=== PATIENT | male | born 1945 | race Caucasian/White ===

== ENCOUNTER → 2017-07-24 09:09 | Outpatient (CLI) | payer MEDICARE, OTHER, SELFPAY ==
--- NOTE | 2017-07-24 | XR_ITS ---
XR chest 2V HISTORY: Cough and congestion ITS.REASON: INFLUENZA A, UNSPECIFIED COPD TYPE ORDERING PHYSICIAN: Omar Guzman MD PATIENT AGE: 72 years COMPARISON: 06/11/2014 FINDINGS: The cardiomediastinal silhouette and pulmonary vascularity are within normal limits. Calcified granuloma is present in the lingula. There is mild coarsening of the bronchovascular markings which may be seen with chronic bronchitis. There are mild atelectatic changes in right lung base with mild eventration of the right hemidiaphragm. Lower thoracic aorta is tortuous. No lobar consolidation or collapse. No acute bony abnormalities. IMPRESSION: Chronic changes with mild right basilar atelectasis
[2017-07-24 09:23] LABS: Basophils # 0.1 K/mm3 (0-0.2); Basophils % 0.7 % (0.1-2.0); Eosinophils # 0.6 K/mm3 (0.0-0.4); Eosinophils % 6.6 % (0.1-12.0); Hemoglobin 15.6 g/dL (14.1-18.0); Lymphocytes % 22.9 K/mm3 (10-50); Mean Corpuscular HGB Conc 33.3 g/dL (31.8-35.4); Mean Corpuscular Hemoglobin 29.6 pg (27.0-31.2); Mean Corpuscular Volume 88.8 fl (80-94); Mean Platelet Volume 8.3 fl (7.4-10.4); Monocytes # 0.6 K/mm3 (0.1-1.0); Neutrophils # 5.5 K/mm3 (1.8-7.8); Neutrophils % 62.7 % (37.0-80.0); Platelet Count 163 K/mm3 (142-424); Red Blood Count 5.29 M/mm3 (4.60-6.20); Red Cell Distribution Width 13.4 % (11.5-17.5); White Blood Count 8.8 K/mm3 (4.8-10.8)
[2017-07-24 09:42] LABS: Hemoglobin A1C 6.6 % (0.0-7.0)
[2017-07-24 10:08] LABS: Alanine Aminotransferase 27 U/L (12-78); Albumin Level 3.6 gm/dL (3.4-5.0); Albumin/Globulin Ratio 1.2 (1.1-1.8); Alkaline Phosphatase 59 U/L (46-116); Anion Gap 13.7 mEq/L (5-15); Aspartate Amino Transferase 21 U/L (15-37); Bilirubin,Total 0.7 mg/dL (0.2-1.0); Blood Urea Nitrogen 15 mg/dL (7-18); Calcium 8.7 mg/dL (8.5-10.1); Carbon Dioxide 27 mmol/L (21.0-32.0); Chloride 105 mmol/L (98-107); Chol/HDL Ratio 2.5 (1-3.5); Cholesterol 126 mg/dL (140-200); Creatinine,Serum 0.78 mg/dL (0.70-1.30); Estimated Glomerular Filt Rate 98 ml/min (>60); GFR (African American) 119 ML/MIN (>60); Globulin 2.9 gm/dl (1.3-3.2); Glucose 139 mg/dL (74-106); HDL Cholesterol 50 mg/dL (27-67); LDL Cholesterol 38 mg/dL (0-130); Potassium 3.7 mmoL/L (3.5-5.1); Sodium 142 mmol/L (136-145); Total Protein,Serum 6.5 gm/dL (6.4-8.2); Triglycerides 190 mg/dL (30-200); VLDL Cholesterol 38 mg/dL (0-40)
== END ==
PROVIDERS: PCP Internal Medicine Adolescent Medicine; Visit Provider Internal Medicine Adolescent Medicine
DX: E11.9 Type 2 diabetes mellitus without complications (principal); I25.10 Atherosclerotic heart disease of native coronary artery without angina pectoris; J10.1 Influenza due to other identified influenza virus with other respiratory manifestations; J44.9 Chronic obstructive pulmonary disease, unspecified
CPT/HCPCS: 36415; 71046; 80053; 80061; 83036; 85025

== ENCOUNTER → 2017-10-19 13:33 | Outpatient (CLI) | payer MEDICARE, OTHER, SELFPAY | PROVIDERS: Visit Provider Urology | DX: R39.89 Other symptoms and signs involving the genitourinary system (principal); N40.0 Benign prostatic hyperplasia without lower urinary tract symptoms; Z12.5 Encounter for screening for malignant neoplasm of prostate | CPT/HCPCS: 36415; G0103 ==

== ENCOUNTER → 2018-01-17 11:09 | Outpatient (CLI) | payer MEDICARE, OTHER, SELFPAY ==
[2018-01-17 11:53] LABS: Alanine Aminotransferase 42 U/L (12-78); Albumin Level 3.7 gm/dL (3.4-5.0); Albumin/Globulin Ratio 1.2 (1.1-1.8); Alkaline Phosphatase 64 U/L (46-116); Anion Gap 14.1 mEq/L (5-15); Aspartate Amino Transferase 37 U/L (15-37); Bilirubin,Total 0.8 mg/dL (0.2-1.0); Blood Urea Nitrogen 15 mg/dL (7-18); Calcium 9.1 mg/dL (8.5-10.1); Carbon Dioxide 27 mmol/L (21.0-32.0); Chloride 107 mmol/L (98-107); Chol/HDL Ratio 2.4 (1-3.5); Cholesterol 119 mg/dL (140-200); Creatinine,Serum 0.89 mg/dL (0.70-1.30); Estimated Glomerular Filt Rate 84 ml/min (>60); GFR (African American) 102 ML/MIN (>60); Globulin 3.1 gm/dl (1.3-3.2); Glucose 151 mg/dL (74-106); HDL Cholesterol 50 mg/dL (27-67); LDL Cholesterol 41 mg/dL (0-130); Potassium 4.1 mmoL/L (3.5-5.1); Sodium 144 mmol/L (136-145); Total Protein,Serum 6.8 gm/dL (6.4-8.2); Triglycerides 139 mg/dL (30-200); VLDL Cholesterol 28 mg/dL (0-40)
[2018-01-17 14:36] LABS: Hemoglobin A1C 6.7 % (0.0-7.0)
== END ==
PROVIDERS: Visit Provider Internal Medicine Adolescent Medicine
DX: E11.9 Type 2 diabetes mellitus without complications (principal)
CPT/HCPCS: 36415; 80053; 80061; 83036

== ENCOUNTER → 2018-04-21 08:21 | Outpatient (CLI) | payer MEDICARE, OTHER, SELFPAY ==
[2018-04-21 09:08] LABS: Basophils # 0.1 K/mm3 (0-0.2); Basophils % 0.7 % (0.1-2.0); Eosinophils # 0.4 K/mm3 (0.0-0.4); Eosinophils % 5.4 % (0.1-12.0); Hematocrit 43.7 % (42.0-52.0); Hemoglobin 14.2 g/dL (14.1-18.0); Lymphocytes # 1.9 K/mm3 (0.7-4.5); Lymphocytes % 25.6 K/mm3 (10-50); Mean Corpuscular HGB Conc 32.4 g/dL (31.8-35.4); Mean Corpuscular Hemoglobin 29.7 pg (27.0-31.2); Mean Corpuscular Volume 91.7 fl (80-94); Mean Platelet Volume 7.6 fl (7.4-10.4); Monocytes # 0.5 K/mm3 (0.1-1.0); Monocytes % 7.3 % (1.7-9.3); Neutrophils # 4.5 K/mm3 (1.8-7.8); Platelet Count 214 K/mm3 (142-424); Red Blood Count 4.77 M/mm3 (4.60-6.20); Red Cell Distribution Width 13.3 % (11.5-17.5); White Blood Count 7.4 K/mm3 (4.8-10.8)
[2018-04-21 09:47] LABS: Hemoglobin A1C 6.5 % (0.0-7.0)
[2018-04-21 09:58] LABS: Alanine Aminotransferase 32 U/L (12-78); Albumin Level 3.3 gm/dL (3.4-5.0); Alkaline Phosphatase 92 U/L (46-116); Anion Gap 13.7 mEq/L (5-15); Aspartate Amino Transferase 25 U/L (15-37); Bilirubin,Total 0.5 mg/dL (0.2-1.0); Blood Urea Nitrogen 21 mg/dL (7-18); Calcium 9.2 mg/dL (8.5-10.1); Carbon Dioxide 28 mmol/L (21.0-32.0); Chloride 106 mmol/L (98-107); Chol/HDL Ratio 2.2 (1-3.5); Cholesterol 100 mg/dL (140-200); Creatinine,Serum 0.88 mg/dL (0.70-1.30); Estimated Glomerular Filt Rate 85 ml/min (>60); GFR (African American) 103 ML/MIN (>60); Globulin 3.2 gm/dl (1.3-3.2); Glucose 122 mg/dL (74-106); HDL Cholesterol 46 mg/dL (27-67); LDL Cholesterol 25 mg/dL (0-130); Potassium 4.7 mmoL/L (3.5-5.1); Sodium 143 mmol/L (136-145); Total Protein,Serum 6.5 gm/dL (6.4-8.2); Triglycerides 145 mg/dL (30-200); VLDL Cholesterol 29 mg/dL (0-40)
== END ==
PROVIDERS: PCP Internal Medicine Adolescent Medicine; Visit Provider Internal Medicine Adolescent Medicine
DX: E78.5 Hyperlipidemia, unspecified (principal); E11.9 Type 2 diabetes mellitus without complications; I25.10 Atherosclerotic heart disease of native coronary artery without angina pectoris
CPT/HCPCS: 36415; 80053; 80061; 83036; 85025

== ENCOUNTER → 2018-06-07 15:58 | Outpatient (CLI) | payer MEDICARE, OTHER, SELFPAY | PROVIDERS: Visit Provider Urology | DX: N13.8 Other obstructive and reflux uropathy (principal); N40.1 Benign prostatic hyperplasia with lower urinary tract symptoms | CPT/HCPCS: 87086; 87088; 87186 ==

== ENCOUNTER → 2018-10-24 10:01 | Outpatient (CLI) | payer MEDICARE, OTHER, SELFPAY ==
[2018-10-24 10:24] LABS: Basophils % 0.4 % (0.1-2.0); Eosinophils # 0.3 K/mm3 (0.0-0.4); Eosinophils % 3.5 % (0.1-12.0); Hematocrit 46.7 % (42.0-52.0); Hemoglobin 16.2 g/dL (14.1-18.0); Lymphocytes # 1.8 K/mm3 (0.7-4.5); Lymphocytes % 24.8 % (10-50); Mean Corpuscular HGB Conc 34.7 g/dL (31.8-35.4); Mean Corpuscular Hemoglobin 31.3 pg (27.0-31.2); Mean Corpuscular Volume 90.3 fl (80-94); Mean Platelet Volume 8.3 fl (7.4-10.4); Monocytes # 0.5 K/mm3 (0.1-1.0); Monocytes % 6.9 % (1.7-9.3); Neutrophils # 4.7 K/mm3 (1.8-7.8); Neutrophils % 64.3 % (37.0-80.0); Platelet Count 167 K/mm3 (142-424); Red Blood Count 5.17 M/mm3 (4.60-6.20); Red Cell Distribution Width 14.1 % (11.5-17.5); White Blood Count 7.4 K/mm3 (4.8-10.8)
[2018-10-24 11:34] LABS: Alanine Aminotransferase 23 U/L (12-78); Albumin Level 3.6 gm/dL (3.4-5.0); Albumin/Globulin Ratio 1.1 (1.1-1.8); Alkaline Phosphatase 72 U/L (46-116); Anion Gap 12.9 mEq/L (5-15); Aspartate Amino Transferase 19 U/L (15-37); Bilirubin,Total 0.7 mg/dL (0.2-1.0); Blood Urea Nitrogen 14 mg/dL (7-18); Calcium 8.9 mg/dL (8.5-10.1); Carbon Dioxide 29 mmol/L (21.0-32.0); Chloride 104 mmol/L (98-107); Chol/HDL Ratio 2.4 (1-3.5); Cholesterol 115 mg/dL (140-200); Estimated Glomerular Filt Rate 95 ml/min (>60); GFR (African American) 115 ML/MIN (>60); Globulin 3.3 gm/dl (1.3-3.2); Glucose 121 mg/dL (74-106); HDL Cholesterol 47 mg/dL (27-67); LDL Cholesterol 49 mg/dL (0-130); Potassium 3.9 mmoL/L (3.5-5.1); Sodium 142 mmol/L (136-145); Total Protein,Serum 6.9 gm/dL (6.4-8.2); Triglycerides 95 mg/dL (30-200); VLDL Cholesterol 19 mg/dL (0-40)
== END ==
PROVIDERS: Visit Provider Internal Medicine Adolescent Medicine
DX: E78.5 Hyperlipidemia, unspecified (principal); E11.9 Type 2 diabetes mellitus without complications; Z79.84 Long term (current) use of oral hypoglycemic drugs; I10 Essential (primary) hypertension
CPT/HCPCS: 36415; 80053; 80061; 83036; 85025

== ENCOUNTER → 2019-03-28 09:17 | Outpatient (CLI) | payer MEDICARE, OTHER, SELFPAY ==
[2019-03-28 09:49] LABS: Basophils % 0.4 % (0.1-2.0); Eosinophils # 0.3 K/mm3 (0.0-0.4); Eosinophils % 3.2 % (0.1-12.0); Hematocrit 49.2 % (42.0-52.0); Hemoglobin 15.9 g/dL (14.1-18.0); Lymphocytes # 2.1 K/mm3 (0.7-4.5); Mean Corpuscular HGB Conc 32.3 g/dL (31.8-35.4); Mean Corpuscular Hemoglobin 30.3 pg (27.0-31.2); Mean Corpuscular Volume 93.8 fl (80-94); Mean Platelet Volume 8.6 fl (7.4-10.4); Monocytes # 0.6 K/mm3 (0.1-1.0); Monocytes % 7.4 % (1.7-9.3); Neutrophils # 5.2 K/mm3 (1.8-7.8); Neutrophils % 62.9 % (37.0-80.0); Platelet Count 185 K/mm3 (142-424); Red Blood Count 5.24 M/mm3 (4.60-6.20); Red Cell Distribution Width 14.5 % (11.5-17.5); White Blood Count 8.2 K/mm3 (4.8-10.8)
[2019-03-28 10:50] LABS: Alanine Aminotransferase 18 U/L (12-78); Albumin Level 3.5 gm/dL (3.4-5.0); Albumin/Globulin Ratio 1.1 (1.1-1.8); Alkaline Phosphatase 62 U/L (46-116); Anion Gap 13.1 mEq/L (5-15); Aspartate Amino Transferase 15 U/L (15-37); Bilirubin,Total 0.8 mg/dL (0.2-1.0); Blood Urea Nitrogen 23 mg/dL (7-18); Calcium 9.2 mg/dL (8.5-10.1); Carbon Dioxide 29 mmol/L (21.0-32.0); Chloride 104 mmol/L (98-107); Chol/HDL Ratio 2.7 (1-3.5); Cholesterol 119 mg/dL (140-200); Creatinine,Serum 0.72 mg/dL (0.70-1.30); Estimated Glomerular Filt Rate 107 ml/min (>60); GFR (African American) 129 ML/MIN (>60); Globulin 3.1 gm/dl (1.3-3.2); Glucose 111 mg/dL (74-106); HDL Cholesterol 44 mg/dL (27-67); LDL Cholesterol 40 mg/dL (0-130); Potassium 4.1 mmoL/L (3.5-5.1); Sodium 142 mmol/L (136-145); Total Protein,Serum 6.6 gm/dL (6.4-8.2); Triglycerides 174 mg/dL (30-200); VLDL Cholesterol 35 mg/dL (0-40)
[2019-03-28 11:29] LABS: Hemoglobin A1C 6.2 % (0.0-7.0)
== END ==
PROVIDERS: Visit Provider Internal Medicine Adolescent Medicine
DX: I25.10 Atherosclerotic heart disease of native coronary artery without angina pectoris (principal); E11.9 Type 2 diabetes mellitus without complications; E78.5 Hyperlipidemia, unspecified; Z79.84 Long term (current) use of oral hypoglycemic drugs
CPT/HCPCS: 36415; 80053; 80061; 83036; 85025

== ENCOUNTER → 2019-04-07 10:49 | Outpatient (CLI) | payer MEDICARE, OTHER, SELFPAY ==
--- NOTE | 2019-04-07 10:53 | CT_ITS ---
PROCEDURE: CT LUNG SCREENING CLINICAL INDICATION: CURRENT TOBACCO USE Thirty pack-year smoking history, asymptomatic for lung cancer COMPARISON: LDCTLCAS LDCT FOR LUNG CA SCREEN from 10/12/2016 TECHNIQUE: The exam was performed on a GE Light Speed [address] scanner using 2.90 mGy CTDI. A low dose helical CT CHEST was performed on a multi-detector scanner. All CT scans at the facility use one or more dose reduction, viz: automated exposure control, ma/kV adjustment per patient size (including targeted exams where dose is matched to indication, i.e. head), or iterative reconstruction technique. The LDCT was performed in a facility that meets the criteria for the screening program. Data regarding this exam was submitted to ACR which is an approved registry. The order for this exam indicates that it came as a result of a lung cancer screening counseling shard decision-making visit that included all the elements required of such a visit including smoking cessation. The radiologist interpreting this exam meets the CMS criteria for the LDCT lung cancer screening program. The exam is reported using the Lung-RADS classification scale and reported to the ACR registry. NOTE: This study was performed for the specific purposes of lung cancer screening and is not an alternative to diagnostic chest CT. RADIATION DOSE: CTDI vol(CT dose Index-volume) = 2.90mG DLP (Dose Length Product) = 110.98 mGcm FINDINGS: COPD with centrilobular and paraseptal emphysema a 4 mm noncalcified nodule is present in the right middle lobe unchanged. There are scattered fibrotic changes. There is a 3 mm noncalcified nodule in the left apex. Calcified granuloma is present in the lingula. There is a new oval parenchymal opacity in the right lower lobe at 7 x 4 mm possibly due to an area of parenchymal fibrosis. Suggest 6 month follow-up to confirm stability. Cannot exclude a developing pulmonary nodule OTHER FINDINGS: Coronary artery calcification. Scattered small mediastinal lymph nodes. IMPRESSION: Lung rads category 3 probably findings. New nodule in the right lower lobe Suggest [address] chest Dictated by: Darwin Briones MD 04/09/2019 11:11 Electronically signed by Darwin Briones MD in [place] 04/09/2019 11:11
== END ==
PROVIDERS: PCP Internal Medicine Adolescent Medicine; Visit Provider Internal Medicine Adolescent Medicine
DX: Z87.891 Personal history of nicotine dependence (principal); Z12.2 Encounter for screening for malignant neoplasm of respiratory organs

== ENCOUNTER → 2019-05-23 14:23 | Outpatient (CLI) | payer MEDICARE, OTHER, SELFPAY ==
[2019-05-23 15:42] LABS: Prostate Specific Ag Screen 1.7 ng/mL (0.0-4.0)
== END ==
PROVIDERS: Visit Provider Urology
DX: Z12.5 Encounter for screening for malignant neoplasm of prostate (principal); N40.0 Benign prostatic hyperplasia without lower urinary tract symptoms
CPT/HCPCS: 36415; G0103

== ENCOUNTER → 2019-08-09 11:32 | Outpatient (CLI) | payer MEDICARE, OTHER, SELFPAY ==
[2019-08-09 12:25] LABS: Basophils # 0.1 K/mm3 (0-0.2); Basophils % 0.7 % (0.1-2.0); Eosinophils # 0.3 K/mm3 (0.0-0.4); Eosinophils % 3.7 % (0.1-12.0); Hematocrit 47.6 % (42.0-52.0); Hemoglobin 15.9 g/dL (14.1-18.0); Lymphocytes # 1.9 K/mm3 (0.7-4.5); Lymphocytes % 21.3 % (10-50); Mean Corpuscular HGB Conc 33.4 g/dL (31.8-35.4); Mean Corpuscular Hemoglobin 30.9 pg (27.0-31.2); Mean Corpuscular Volume 92.5 fl (80-94); Mean Platelet Volume 8.9 fl (7.4-10.4); Monocytes # 0.6 K/mm3 (0.1-1.0); Neutrophils % 67.2 % (37.0-80.0); Platelet Count 229 K/mm3 (142-424); Red Blood Count 5.15 M/mm3 (4.60-6.20); Red Cell Distribution Width 13.1 % (11.5-17.5); White Blood Count 8.9 K/mm3 (4.8-10.8)
[2019-08-09 13:37] LABS: Alanine Aminotransferase 18 U/L (21-72); Albumin Level 3.7 g/dL (3.4-5.0); Albumin/Globulin Ratio 1.1 (1.1-1.8); Alkaline Phosphatase 56 U/L (46-116); Anion Gap 12.2 mEq/L (5-15); Aspartate Amino Transferase 18 U/L (15-37); Bilirubin,Total 0.7 mg/dL (0.2-1.0); Blood Urea Nitrogen 19 mg/dL (7-18); Calcium 9.5 mg/dL (8.5-10.1); Carbon Dioxide 32 mmol/L (21.0-32.0); Chloride 104 mmol/L (98-107); Chol/HDL Ratio 2.5 (1-3.5); Cholesterol 120 mg/dL (140-200); Creatinine,Serum 0.86 mg/dL (0.70-1.30); Estimated Glomerular Filt Rate 87 ml/min (>60); GFR (African American) 105 ML/MIN (>60); Globulin 3.3 gm/dl (1.3-3.2); Glucose 120 mg/dL (74-106); HDL Cholesterol 48 mg/dL (27-67); LDL Cholesterol 34 mg/dL (0-130); Potassium 4.2 mmoL/L (3.5-5.1); Sodium 144 mmol/L (137-145); Triglycerides 188 mg/dL (30-200); VLDL Cholesterol 38 mg/dL (0-40)
[2019-08-09 14:21] LABS: Hemoglobin A1C 6.1 % (0.0-7.0)
== END ==
PROVIDERS: Visit Provider Internal Medicine Adolescent Medicine
DX: I25.10 Atherosclerotic heart disease of native coronary artery without angina pectoris (principal); E78.5 Hyperlipidemia, unspecified; Z79.899 Other long term (current) drug therapy
CPT/HCPCS: 36415; 80053; 80061; 83036; 85025

== ENCOUNTER → 2019-08-24 13:47 | Outpatient (CLI) | payer MEDICARE, OTHER, SELFPAY ==
[2019-08-24 16:06] LABS: Blood Urea Nitrogen 18 mg/dl (9-20); Estimated Glomerular Filt Rate 111 ml/min (>60); GFR (African American) 134 ML/MIN (>60)
== END ==
PROVIDERS: Visit Provider Internal Medicine Adolescent Medicine
DX: R93.89 Abnormal findings on diagnostic imaging of other specified body structures (principal)
CPT/HCPCS: 36415; 82565; 84520

== ENCOUNTER → 2019-08-25 13:37 | Outpatient (CLI) | payer MEDICARE, OTHER, SELFPAY ==
--- NOTE | 2019-08-25 13:39 | CT_ITS ---
PROCEDURE: CT CHEST W CON CLINCAL INDICATION: ABORMAL CHEST IMAGING COMPARISON: CT LUNG SCREENING from 04/07/2019 TECHNIQUE: IV Contrast: 75ml Optiray 350 Axial images obtained with sagittal and coronal reformats. All CT scans at the facility use one or more dose reduction, viz: automated exposure control, ma/kV adjustment per patient size (including targeted exams where dose is matched to indication, i.e. head), or iterative reconstruction technique. FINDINGS: HEART AND MEDIASTINAL STRUCTURES: Scattered small nodes are present in the mediastinum. This appears slightly more prominent compared to the previous study with the largest node in the precarinal region at approximately 12 mm previously measuring 9 mm. There are coronary artery calcifications. LUNGS AND PLEURAL SPACES: COPD with centrilobular emphysema. There is some apical pleural thickening on the right. Paraseptal emphysematous changes also noted. There is diffuse bronchial thickening. There are a few new small nodular opacities including a 5 mm nodule in the right upper lobe anteriorly, several small nodules at 3-4 mm in the right middle lobe, 3 mm nodule in the lingula which is stable, calcified granuloma in the lingula. Bronchial thickening appears somewhat worse in there is some patchy peribronchial infiltrate noted in the right middle lobe and right lower lobe medially. There is some ground-glass density in the left perihilar region. No effusions. There is mild prominence of the interstitium. The previously noted 6 mm nodule in the right lower lobe posteriorly is not readily apparent could been due to an area of atelectasis. BONY STRUCTURES: No acute bony abnormalities apparent. UPPER ABDOMEN: There is a cluster of coarse calcifications in the posterior aspect of the right hepatic lobe near the gallbladder fossa not significantly changed. There is mild diffuse thickening of the stomach. A small cystic areas present in the hepatic dome not significantly changed. ADDITIONAL FINDINGS: No other significant abnormalities. IMPRESSION: 1. There is COPD with centrilobular emphysema. There is diffuse bronchial thickening which appears somewhat worse and is greater on the right compared to the left with some patchy peribronchial infiltrates consistent with bronchitis/bronchopneumonia. 2. There are a few new small nodular opacities noted in the right upper lobe and right middle lobe. These could be inflammatory or infectious in nature. Cannot exclude neoplastic process. Suggest 3 month follow-up to confirm stability or resolution. 3. Previously noted 6 mm nodule in the right lower lobe is no longer apparent Dictated by: Darwin Briones MD 08/26/2019 10:03 Electronically signed by Darwin Briones MD in [place] 08/26/2019 10:03
== END ==
PROVIDERS: PCP Internal Medicine Adolescent Medicine; Visit Provider Internal Medicine Adolescent Medicine
DX: R93.89 Abnormal findings on diagnostic imaging of other specified body structures (principal)
CPT/HCPCS: 71260; Q9967

== ENCOUNTER → 2019-11-24 13:06 | Outpatient (CLI) | payer MEDICARE, OTHER, SELFPAY ==
[2019-11-24 13:36] LABS: Hemoglobin A1C 5.9 % (4.0-6.0)
[2019-11-24 13:47] LABS: Basophils # 0.1 K/mm3 (0-0.2); Basophils % 0.9 % (0.1-2.0); Eosinophils # 0.2 K/mm3 (0.0-0.4); Eosinophils % 2.3 % (0.1-12.0); Hemoglobin 15.4 g/dL (14.1-18.0); Lymphocytes # 1.6 K/mm3 (0.7-4.5); Lymphocytes % 19.7 % (10-50); Mean Corpuscular HGB Conc 33.6 g/dL (31.8-35.4); Mean Corpuscular Hemoglobin 31.1 pg (27.0-31.2); Mean Corpuscular Volume 92.5 fl (80-94); Monocytes # 0.5 K/mm3 (0.1-1.0); Monocytes % 5.8 % (1.7-9.3); Neutrophils # 5.8 K/mm3 (1.8-7.8); Neutrophils % 71.2 % (37.0-80.0); Platelet Count 186 K/mm3 (142-424); Red Blood Count 4.97 M/mm3 (4.60-6.20); Red Cell Distribution Width 13.6 % (11.5-17.5); White Blood Count 8.2 K/mm3 (4.8-10.8)
[2019-11-24 14:14] LABS: Chloride 103 mmol/L (98-107)
[2019-11-24 14:15] LABS: Sodium 142 mmol/L (136-145)
[2019-11-24 14:17] LABS: Alanine Aminotransferase 13 U/L (12-78); Alkaline Phosphatase 59 U/L (38-126); Aspartate Amino Transferase 24 U/L (17-59); Bilirubin,Total 1.1 mg/dl (0.2-1.3); Blood Urea Nitrogen 12 mg/dl (9-20); Estimated Glomerular Filt Rate 111 ml/min (>60); GFR (African American) 134 ML/MIN (>60)
[2019-11-24 14:18] LABS: Albumin Level 4.1 g/dl (3.5-5.0); Albumin/Globulin Ratio 1.6 (1.1-1.8); Calcium 9.5 mg/dl (8.4-10.2); Carbon Dioxide 34 mmol/L (22.0-30.0); Chol/HDL Ratio 2.2 (1-3.5); Cholesterol 107 mg/dl (140-200); Globulin 2.6 g/dL (1.3-3.2); Glucose 109 mg/dl (74-100); HDL Cholesterol 49 mg/dl (40-60); Total Protein,Serum 6.7 g/dl (6.3-8.2); Triglycerides 162 mg/dl (30-150); VLDL Cholesterol 32 mg/dL (0-40)
[2019-11-24 14:29] LABS: Direct LDL Cholesterol 48.78 mg/dL (100-129)
== END ==
PROVIDERS: Visit Provider Internal Medicine Adolescent Medicine
DX: I25.10 Atherosclerotic heart disease of native coronary artery without angina pectoris (principal); E78.5 Hyperlipidemia, unspecified; E11.9 Type 2 diabetes mellitus without complications; Z79.84 Long term (current) use of oral hypoglycemic drugs
CPT/HCPCS: 36415; 80053; 80061; 83036; 85025

== ENCOUNTER → 2019-12-11 08:11 | Outpatient (CLI) | payer MEDICARE, OTHER, SELFPAY ==
[2019-12-11 08:36] LABS: Blood Urea Nitrogen 27 mg/dl (9-20); Estimated Glomerular Filt Rate 95 ml/min (>60); GFR (African American) 115 ML/MIN (>60)
--- NOTE | 2019-12-11 09:11 | CT_ITS ---
PROCEDURE: CT CHEST WO/W CON CLINCAL INDICATION: MULTIPLE PULMONARY NODULES Follow-up pulmonary nodules COMPARISON: CT CHEST W CON from 08/25/2019 TECHNIQUE: IV Contrast: 75ml Optiray 350 Axial images obtained with sagittal and coronal reformats. All CT scans at the facility use one or more dose reduction, viz: automated exposure control, ma/kV adjustment per patient size (including targeted exams where dose is matched to indication, i.e. head), or iterative reconstruction technique. FINDINGS: HEART AND MEDIASTINAL STRUCTURES: Small mediastinal nodes are unchanged. No mediastinal or hilar mass or adenopathy. Coronary artery calcifications are present. LUNGS AND PLEURAL SPACES: COPD with centrilobular and paraseptal emphysema. Right apical nodule anteriorly no longer apparent. There is a 2 mm nodule right upper lobe laterally unchanged. 3 mm nodule right middle lobe laterally unchanged. There are some mild atelectatic changes in the right middle lobe. Atelectatic or fibrotic changes are present in the right lower lobe. There is mild bronchial thickening. There is a 3 mm nodule in the lingula unchanged. Calcified granuloma in the lingula unchanged small area of cavitation/pneumatocele noted in the left lower lobe unchanged. No suspicious new nodules evident. BONY STRUCTURES: No acute bony abnormalities apparent. UPPER ABDOMEN: Coarse calcification noted in the right hepatic lobe unchanged. There is continued mild diffuse thickening of the stomach ADDITIONAL FINDINGS: No other significant abnormalities. IMPRESSION: Overall stable CT appearance of the chest. COPD with centrilobular and paraseptal emphysema with scattered small nodular opacities which are stable. Mild diffuse thickening of the stomach which could be due to nondistention or gastritis. Other nonacute findings as described above Dictated by: Darwin Briones MD 12/12/2019 12:12 Electronically signed by Darwin Briones MD in [place] 12/12/2019 12:12
== END ==
PROVIDERS: PCP Internal Medicine Adolescent Medicine; Visit Provider Internal Medicine Adolescent Medicine
DX: R91.8 Other nonspecific abnormal finding of lung field (principal)
CPT/HCPCS: 36415; 71270; 82565; 84520; Q9967

== ENCOUNTER → 2020-02-29 11:56 | Outpatient (CLI) | payer MEDICARE, OTHER, SELFPAY ==
[2020-02-29 12:27] LABS: Basophils # 0.1 K/mm3 (0-0.2); Basophils % 0.7 % (0.1-2.0); Eosinophils # 0.3 K/mm3 (0.0-0.4); Eosinophils % 3.8 % (0.1-12.0); Hematocrit 49.9 % (42.0-52.0); Hemoglobin 16.8 g/dL (14.1-18.0); Lymphocytes # 1.7 K/mm3 (0.7-4.5); Mean Corpuscular HGB Conc 33.6 g/dL (31.8-35.4); Mean Corpuscular Hemoglobin 31.4 pg (27.0-31.2); Mean Corpuscular Volume 93.5 fl (80-94); Mean Platelet Volume 8.7 fl (7.4-10.4); Monocytes # 0.6 K/mm3 (0.1-1.0); Neutrophils # 5.3 K/mm3 (1.8-7.8); Neutrophils % 67.6 % (37.0-80.0); Platelet Count 172 K/mm3 (142-424); Red Blood Count 5.34 M/mm3 (4.60-6.20); Red Cell Distribution Width 13.4 % (11.5-17.5); White Blood Count 7.9 K/mm3 (4.8-10.8)
[2020-02-29 12:49] LABS: Chloride 100 mmol/L (98-107); Potassium 3.7 mmoL/L (3.5-5.1); Sodium 141 mmol/L (136-145)
[2020-02-29 12:52] LABS: Alanine Aminotransferase 14 U/L (12-78); Albumin/Globulin Ratio 1.4 (1.1-1.8); Alkaline Phosphatase 53 U/L (38-126); Anion Gap 12.7 mEq/L (5-15); Aspartate Amino Transferase 25 U/L (17-59); Blood Urea Nitrogen 18 mg/dl (9-20); Carbon Dioxide 32 mmol/L (22.0-30.0); Chol/HDL Ratio 2.2 (1-3.5); Cholesterol 112 mg/dl (140-200); Estimated Glomerular Filt Rate 94 ml/min (>60); GFR (African American) 114 ML/MIN (>60); Globulin 2.9 g/dL (1.3-3.2); Glucose 115 mg/dl (74-100); HDL Cholesterol 50 mg/dl (40-60); Total Protein,Serum 6.9 g/dl (6.3-8.2); Triglycerides 141 mg/dl (30-150); VLDL Cholesterol 28 mg/dL (0-40)
[2020-02-29 13:03] LABS: Direct LDL Cholesterol 41.71 mg/dL (100-129)
[2020-02-29 16:41] LABS: Hemoglobin A1C 6.6 % (4.0-6.0)
== END ==
PROVIDERS: Visit Provider Internal Medicine Adolescent Medicine
DX: E78.5 Hyperlipidemia, unspecified (principal); E11.9 Type 2 diabetes mellitus without complications; I25.10 Atherosclerotic heart disease of native coronary artery without angina pectoris
CPT/HCPCS: 36415; 80053; 80061; 83036; 85025

== ENCOUNTER 2020-06-08 10:38 | Emergency (ER) | payer MEDICARE, OTHER, SELFPAY ==
[2020-06-08 10:52] VITALS: BP 128/79; PULSE 89; RESP 20; TEMP 36.8; O2SAT 98; BMI 25.9
--- NOTE | 2020-06-08 11:12 | HMH.EDUTC ---
[facility] [place] Disposition Clinical Impression: Viral syndrome, Encounter for screening laboratory testing for COVID-19 virus Disposition: Home, Self-Care Condition on Discharge: Good Instructions: Preventing the Spread of Coronavirus Discharge Instructions Additional Instructions: *Monitor Temp, Over the counter Motrin or Tylenol as directed/as needed Tylenol every 4 hours and Motrin every 6 hours (as long as your family doctor has told you that you can take it) for fever or pain. and straight to ER if unable to lower temp less than 101.0 after medication given *Warm salt water gargles may help to soothe the throat *Throat Lozenges *Warm fluids like tea with honey may help to soothe the throat *Sleep elevated *Humidifier/Vaporizer Follow up IMMEDIATELY for new or worsening symptoms or no Noticeable improvement over the next 48-72 hours. 911 for difficulty breathing or swallowing You were tested for today for COVID19 your test result should be back in the next 24-48 hours, you may call to the [facility] to see if your test results are back in the next 48 hours [phone] [facility] hours are 9am-9pm You was given a handout with instructions for Self Quarantine and Self isolation for while you wait on test results and what to do if they are positive If you are positive the Health Dept will be contacting you also Referrals: Omar Guzman MD [Primary Care Provider] - As needed Time of Disposition: 11:19 Medical Decision Making - Christiano Inquiry Pt receiving controlled substance: No Christiano was queried for this patient: No Vital Signs: 06/08/20 10:52 Temperature 98.3 F Temperature Source Oral Pulse Rate [Radial] 89 Respiratory Rate 20 Blood Pressure [Right Arm] 128/79 Blood Pressure Mean [Right Arm] 95 Blood Pressure Source [Right Arm] Automatic Cuff Blood Pressure Position [Right Arm] Sitting 02 Sat by Pulse Oximetry 98 Oxygen Delivery Method Room Air - Lab Data Lab results reviewed: Yes: I reviewed the patient's lab results. Orders (Tests/Meds): ORDERS Category Date Time Status Covid-19 Nasal PCR Sendout [facility] 06/08/20 10:43 Ordered [facility] [place] HPI - General Stated complaint: covid test Time Seen by Provider: 06/08/20 11:12 Mode of Arrival: Ambulatory Source of Information: Patient Limitations: No Limitations Description of Symptoms (Recalled from Triage Doc. by RN): covid test, body aches, cough x 2 days no exposure HEENT Symptoms (Recalled from RN notes): Yes Resp Symptoms (Recalled from RN notes): No Skin Symptoms (Recalled from RN notes): No MS Symptoms (Recalled from RN notes): No Functional Status (Recalled from RN notes): wnl - History of Present Illness Provider Complaint: Patient state that he wanted to get a COVID test States he has felt like he may have the flu State that he has been having body aches, chills, headache and over all not feeling well State that he has not been exposed that he is aware of but wanted to get checked for flu and COVID - Related Data Home Medications Medication Instructions Recorded Confirmed aspirin 81 mg tablet,delayed 81 mg PO ONCE 10/19/17 05/23/19 release atorvastatin 40 mg tablet 40 mg PO ONCE 10/19/17 05/23/19 diphenhydramine HCl 25 mg capsule 25 mg PO QHS PRN 10/19/17 05/23/19 losartan 50 mg tablet 50 mg PO ONCE 10/19/17 05/23/19 metformin 500 mg tablet 500 mg PO ONCE tab 10/19/17 05/23/19 metoprolol succinate 25 mg 25 mg PO ONCE 10/19/17 05/23/19 tablet,extended release 24 hr nicotine 1 patch TRANSDERMA ONCE 10/19/17 05/23/19 21mg/24hr-14mg/24hr-7mg/24hr daily transderm patches,sequentl omeprazole 20 mg tablet,delayed 20 mg PO ONCE tab 10/19/17 05/23/19 release umeclidinium 62.5 mcg-vilanterol 1 inh INHALATION Q24H 10/19/17 05/23/19 25 mcg/actuation powdr for inhalation Previous Rx's Medication Instructions Recorded azithromycin 250 mg tablet 250 mg PO QDAY 5 Days #6 tab 07/10/18 benzonatate 200 mg capsule 200 mg PO TID
[2020-06-08 11:31] VITALS: BP 128/79; PULSE 89; RESP 20; TEMP 36.8; O2SAT 98
[2020-06-08 19:09] LABS: UTC Influenza A Antigen Negative (Negative); UTC Influenza B Antigen Negative (Negative)
[2020-06-09 09:07] LABS: Covid-19 Nasal PCR Sendout UK Not Detected
== END 2020-06-08 11:32 | disposition home or self-care (01) ==
PROVIDERS: Emergency Provider Nurse Practitioner; PCP Internal Medicine Adolescent Medicine
DX: Z20.828 Contact with and (suspected) exposure to other viral communicable diseases (principal); B34.9 Viral infection, unspecified; I10 Essential (primary) hypertension; E11.9 Type 2 diabetes mellitus without complications; J44.9 Chronic obstructive pulmonary disease, unspecified; E78.5 Hyperlipidemia, unspecified; F17.210 Nicotine dependence, cigarettes, uncomplicated; Z79.899 Other long term (current) drug therapy
CPT/HCPCS: G0463; 87804; 99201; U0003

== ENCOUNTER → 2020-09-05 07:40 | Outpatient (CLI) | payer MEDICARE, OTHER, SELFPAY ==
[2020-09-05 08:37] LABS: Basophils # 0.1 K/mm3 (0-0.2); Basophils % 0.5 % (0.1-2.0); Eosinophils # 0.3 K/mm3 (0.0-0.4); Eosinophils % 3.6 % (0.1-12.0); Hematocrit 50.3 % (42.0-52.0); Hemoglobin 15.9 g/dL (14.1-18.0); Lymphocytes # 2.1 K/mm3 (0.7-4.5); Lymphocytes % 23.6 % (10-50); Mean Corpuscular HGB Conc 31.7 g/dL (31.8-35.4); Mean Corpuscular Hemoglobin 30.3 pg (27.0-31.2); Mean Corpuscular Volume 95.7 fl (80-94); Mean Platelet Volume 8.7 fl (7.4-10.4); Monocytes # 0.6 K/mm3 (0.1-1.0); Monocytes % 6.8 % (1.7-9.3); Neutrophils # 5.9 K/mm3 (1.8-7.8); Neutrophils % 65.4 % (37.0-80.0); Platelet Count 186 K/mm3 (142-424); Red Blood Count 5.26 M/mm3 (4.60-6.20); Red Cell Distribution Width 13.6 % (11.5-17.5)
[2020-09-05 09:05] LABS: Alanine Aminotransferase 15 U/L (12-78); Albumin Level 4.1 g/dl (3.5-5.0); Albumin/Globulin Ratio 1.4 (1.1-1.8); Alkaline Phosphatase 74 U/L (38-126); Anion Gap 11.5 mEq/L (5-15); Aspartate Amino Transferase 25 U/L (17-59); Bilirubin,Total 0.7 mg/dl (0.2-1.3); Blood Urea Nitrogen 15 mg/dl (9-20); Calcium 9.7 mg/dl (8.4-10.2); Carbon Dioxide 32 mmol/L (22.0-30.0); Chloride 100 mmol/L (98-107); Chol/HDL Ratio 2.7 (1-3.5); Cholesterol 122 mg/dl (140-200); Estimated Glomerular Filt Rate 94 ml/min (>60); GFR (African American) 114 ML/MIN (>60); Glucose 140 mg/dl (74-100); HDL Cholesterol 45 mg/dl (40-60); Potassium 4.5 mmoL/L (3.5-5.1); Sodium 139 mmol/L (136-145); Total Protein,Serum 7.1 g/dl (6.3-8.2); Triglycerides 163 mg/dl (30-150); VLDL Cholesterol 33 mg/dL (0-40)
[2020-09-05 09:16] LABS: Hemoglobin A1C 6.6 % (4.0-6.0)
== END ==
PROVIDERS: Visit Provider Internal Medicine Adolescent Medicine
DX: E78.5 Hyperlipidemia, unspecified (principal); E11.9 Type 2 diabetes mellitus without complications; Z79.84 Long term (current) use of oral hypoglycemic drugs
CPT/HCPCS: 36415; 80053; 80061; 83036; 85025

== ENCOUNTER → 2020-12-12 07:03 | Outpatient (CLI) | payer MEDICARE, OTHER, SELFPAY ==
--- NOTE | 2020-12-12 07:09 | CT_ITS ---
PROCEDURE: CT LUNG SCREENING CLINICAL INDICATION: H/O NICOTINE DEPENDENCE COMPARISON: CT CT CHEST WO/W CON from 12/11/2019 TECHNIQUE: The exam was performed on a GE Light Speed [address] scanner using 2.90 mGy CTDI. A low dose helical CT CHEST was performed on a multi-detector scanner. All CT scans at the facility use one or more dose reduction, viz: automated exposure control, ma/kV adjustment per patient size (including targeted exams where dose is matched to indication, i.e. head), or iterative reconstruction technique. The LDCT was performed in a facility that meets the criteria for the screening program. Data regarding this exam was submitted to ACR which is an approved registry. The order for this exam indicates that it came as a result of a lung cancer screening counseling shard decision-making visit that included all the elements required of such a visit including smoking cessation. The radiologist interpreting this exam meets the [facility] criteria for the LDCT lung cancer screening program. The exam is reported using the Lung-RADS classification scale and reported to the ACR registry. NOTE: This study was performed for the specific purposes of lung cancer screening and is not an alternative to diagnostic chest CT. RADIATION DOSE: CTDI vol(CT dose Index-volume) = 2.90mG DLP (Dose Length Product) = 111.25 mGcm FINDINGS: Scattered emphysematous changes with mild bullous emphysematous change at the lung apices is again noted. There is some scar versus atelectasis in the lung bases. No pulmonary consolidation or ground-glass opacities in the lungs. No pleural effusion or pneumothorax. A few small calcified granulomata noted in the left lung. No discrete pulmonary nodules. Heart is not enlarged. No pericardial effusion or thickening. There is some calcification of the thoracic aorta without aneurysm. A few small non-specific middle mediastinal lymph nodes are present with some calcified mediastinal and left hilar lymph nodes also noted. Images of the upper abdomen show small retrocardiac hiatal hernia. No adrenal mass. A few calcifications again noted in the right lobe of the liver. Airways are patent. OTHER FINDINGS: No other pertinent findings evident. IMPRESSION: Lung-RADS Category 2 Benign Appearance or Behavior Follow-up: Serial follow-up in 1 year. Scattered emphysematous changes with mild bullous emphysematous changes at the lung apices with some scar versus atelectasis in the lung bases. No definitive discrete pulmonary nodules. Dictated by: Keyshawn Simons MD 12/12/2020 08:40 Keyshawn Simons MD in [place] 12/12/2020 08:40
== END ==
PROVIDERS: PCP Internal Medicine Adolescent Medicine; Visit Provider Internal Medicine Adolescent Medicine
DX: Z87.891 Personal history of nicotine dependence (principal); Z12.2 Encounter for screening for malignant neoplasm of respiratory organs
CPT/HCPCS: 71271

== ENCOUNTER → 2021-03-12 09:53 | Outpatient (CLI) | payer MEDICARE, OTHER, SELFPAY ==
[2021-03-12 10:45] LABS: Hemoglobin A1C 6.4 % (4.0-6.0)
[2021-03-12 11:24] LABS: Chloride 102 mmol/L (98-107); Potassium 3.9 mmoL/L (3.5-5.1); Sodium 144 mmol/L (136-145)
[2021-03-12 11:25] LABS: Basophils # 0.1 K/mm3 (0-0.2); Basophils % 0.7 % (0.1-2.0); Eosinophils # 0.3 K/mm3 (0.0-0.4); Hematocrit 49.1 % (42.0-52.0); Hemoglobin 16.2 g/dL (14.1-18.0); Lymphocytes % 23.3 % (10-50); Mean Corpuscular HGB Conc 32.9 g/dL (31.8-35.4); Mean Corpuscular Volume 94.1 fl (80-94); Monocytes # 0.7 K/mm3 (0.1-1.0); Monocytes % 7.4 % (1.7-9.3); Neutrophils # 5.7 K/mm3 (1.8-7.8); Neutrophils % 65.6 % (37.0-80.0); Platelet Count 181 K/mm3 (142-424); Red Blood Count 5.22 M/mm3 (4.60-6.20); Red Cell Distribution Width 13.1 % (11.5-17.5); White Blood Count 8.8 K/mm3 (4.8-10.8)
[2021-03-12 11:26] LABS: Alanine Aminotransferase 15 U/L (12-78); Aspartate Amino Transferase 26 U/L (17-59); Blood Urea Nitrogen 18 mg/dl (9-20); Estimated Glomerular Filt Rate 82 ml/min (>60); GFR (African American) 100 ML/MIN (>60)
[2021-03-12 11:27] LABS: Albumin Level 3.9 g/dl (3.5-5.0); Albumin/Globulin Ratio 1.5 (1.1-1.8); Alkaline Phosphatase 73 U/L (38-126); Anion Gap 12.9 mEq/L (5-15); Bilirubin,Total 0.7 mg/dl (0.2-1.3); Calcium 9.2 mg/dl (8.4-10.2); Carbon Dioxide 33 mmol/L (22.0-30.0); Chol/HDL Ratio 2.5 (1-3.5); Cholesterol 115 mg/dl (140-200); Globulin 2.6 g/dL (1.3-3.2); Glucose 120 mg/dl (74-100); HDL Cholesterol 46 mg/dl (40-60); Total Protein,Serum 6.5 g/dl (6.3-8.2); Triglycerides 145 mg/dl (30-150); VLDL Cholesterol 29 mg/dL (0-40)
[2021-03-12 11:38] LABS: Direct LDL Cholesterol 47.59 mg/dL (100-129)
== END ==
PROVIDERS: Visit Provider Internal Medicine Adolescent Medicine
DX: I25.10 Atherosclerotic heart disease of native coronary artery without angina pectoris (principal); E78.5 Hyperlipidemia, unspecified; Z79.899 Other long term (current) drug therapy
CPT/HCPCS: 36415; 80053; 80061; 83036; 85025

== ENCOUNTER 2021-04-16 10:15 | Emergency (ER) | payer MEDICARE, OTHER, SELFPAY ==
[2021-04-16 10:17] VITALS: BP 140/86; PULSE 84; RESP 16; TEMP 36.6; O2SAT 97; BMI 27.6
--- NOTE | 2021-04-16 10:29 | HMH.EDUTC ---
[facility] [place] Disposition Clinical Impression: Cellulitis Qualifiers: Site of cellulitis: extremity Site of cellulitis of extremity: lower extremity Laterality: left Qualified Code(s): L03.116 - Cellulitis of left lower limb Disposition: Home, Self-Care Condition on Discharge: Good Instructions: Cellulitis, Clindamycin, Mupirocin Additional Instructions: *Start antibiotic(s) immediately and be sure to take as ordered for the FULL length of time although you may be feeling better or start to see improvement in the next 24-48 hours *Monitor closely. Outlined redness so that you can monitor easier. Follow up immediately for new or worsening symptoms including but not limited to redness, swelling, streaking from site fever or chills. *Never squeeze or pop these on your own. Seek immediate medical attention next time this occurs *Monitor Temp. Tylenol every 4 hours as needed and ibuprofen every 6 hours as needed (as long as your primary care doctor has told you that it is ok to take both. For fever, aches, pain. ER if no less that 101 despite Tylenol and ibuprofen Follow up with your family doctor/primary care physician in the next 48-72 hours if no improvement Return if needed Apply topical medication directly to the lesions as directed Straight to ER if any life threatening symptoms Prescriptions: clindamycin HCL [Clindamycin HCl] 300 mg PO Q8H 7 Days #21 cap Transmission Status: Received by [facility] Mupirocin Calcium [Mupirocin 2% Cream 15gm] 1 applicatio TP TID #15 gm Transmission Status: Received by [id number] Referrals: Omar Guzman MD [Primary Care Provider] - As needed Time of Disposition: 10:39 Medical Decision Making - Christiano Inquiry Pt receiving controlled substance: No Christiano was queried for this patient: No Vital Signs: 04/16/21 10:17 04/16/21 10:38 Temperature 97.8 F 97.8 F Temperature Source Oral Pulse Rate 84 Pulse Rate [Left] 84 Respiratory Rate 16 16 Blood Pressure 140/86 Blood Pressure [Right Arm] 140/86 Blood Pressure Mean [Right Arm] 104 02 Sat by Pulse Oximetry 97 Medical Decision Narrative: medication discussed with pharmacy [facility] [facility] HPI - General Stated complaint: left leg open wound, possibly affected Time Seen by Provider: 04/16/21 10:29 Mode of Arrival: Ambulatory Source of Information: Patient Limitations: No Limitations Description of Symptoms (Recalled from Triage Doc. by RN): pt scraped his lower L leg helping his daughter move. pt now thinks its infected HEENT Symptoms (Recalled from RN notes): No Resp Symptoms (Recalled from RN notes): No Skin Symptoms (Recalled from RN notes): Yes (scrape on L lower leg) MS Symptoms (Recalled from RN notes): No Functional Status (Recalled from RN notes): na - History of Present Illness Provider Complaint: Patient states that he was helping his daughter move last weekend when he scrapped his left leg on something States that he thinks it may be infected it is now red warm and swollen so he came in to get it checked out - Related Data Home Medications Medication Instructions Recorded Confirmed aspirin 81 mg tablet,delayed 81 mg PO ONCE 10/19/17 05/23/19 release atorvastatin 40 mg tablet 40 mg PO ONCE 10/19/17 05/23/19 diphenhydramine HCl 25 mg capsule 25 mg PO QHS PRN 10/19/17 05/23/19 losartan 50 mg tablet 50 mg PO ONCE 10/19/17 05/23/19 metformin 500 mg tablet 500 mg PO ONCE tab 10/19/17 05/23/19 metoprolol succinate 25 mg 25 mg PO ONCE 10/19/17 05/23/19 tablet,extended release 24 hr nicotine 1 patch TRANSDERMA ONCE 10/19/17 05/23/19 21mg/24hr-14mg/24hr-7mg/24hr daily transderm patches,sequentl omeprazole 20 mg tablet,delayed 20 mg PO ONCE tab 10/19/17 05/23/19 release umeclidinium 62.5 mcg-vilanterol 1 inh INHALATION Q24H 10/19/17 05/23/19 25 mcg/actuation powdr for inhalation Previous Rx's Medication Instructions Recorded azithromycin 250 mg tablet 250 mg PO QDAY 5 Days #6 tab 07/10
[2021-04-16 10:38] VITALS: BP 140/86; PULSE 84; RESP 16; TEMP 36.6
== END 2021-04-16 10:44 | disposition home or self-care (01) ==
PROVIDERS: Emergency Provider Nurse Practitioner; PCP Internal Medicine Adolescent Medicine
DX: L03.116 Cellulitis of left lower limb (principal); S80.812A Abrasion, left lower leg, initial encounter; J44.9 Chronic obstructive pulmonary disease, unspecified; E11.9 Type 2 diabetes mellitus without complications; E78.5 Hyperlipidemia, unspecified; I10 Essential (primary) hypertension
CPT/HCPCS: G0463; 99202

== ENCOUNTER 2021-06-06 14:44 | Emergency (ER) | payer MEDICARE, OTHER, SELFPAY ==
[2021-06-06 15:00] VITALS: BP 120/73; PULSE 76; RESP 19; TEMP 36.9; O2SAT 96; BMI 28.1
--- NOTE | 2021-06-06 15:44 | HMH.EDUTC ---
[facility] [place] Disposition Clinical Impression: COPD exacerbation Sinusitis Qualifiers: Sinusitis location: unspecified location Chronicity: acute Recurrence: non-recurrent Qualified Code(s): J01.90 - Acute sinusitis, unspecified Disposition: Home, Self-Care Condition on Discharge: Good Instructions: DI for Sinusitis Additional Instructions: Drink plenty of fluids. Take tylenol or ibuprofen for pain or fever. Take the medications as directed. Follow up with your regular doctor. GO TO THE ER FOR ANY WORSENING SYMPTOMS Don't start the oral steroids until tomorrow, since you had the shot here today. Prescriptions: Amoxicillin/Potassium Clav [Augmentin 875-125 Tablet] 1 tab PO Q12H 10 Days #20 tab Transmission Status: [facility] Benzonatate [Benzonatate 100mg cap] 100 mg PO TIDP PRN #30 cap PRN Reason: Cough Transmission Status: [facility] methylPREDNISolone [Medrol] 4 mg PO DIRECTED 6 Days #21 packet Transmission Status: [facility] Referrals: Omar Guzman MD [Primary Care Provider] - Medical Decision Making - Medical Records Medical records reviewed: No: I reviewed the patient's medical records. - Christiano Inquiry Pt receiving controlled substance: No Vital Signs: 06/06/21 15:00 Temperature 98.4 F Temperature Source Oral Pulse Rate [Right Brachial] 76 Respiratory Rate 19 Blood Pressure [Right Arm] 120/73 Blood Pressure Mean [Right Arm] 88 Blood Pressure Source [Right Arm] Automatic Cuff Blood Pressure Position [Right Arm] Sitting 02 Sat by Pulse Oximetry 96 Oxygen Delivery Method Room Air Orders (Tests/Meds): ED MEDICATIONS Discontinued Medications Generic Name Dose Route Start Last Admin Trade Name Freq PRN Reason Stop Dose Admin Ceftriaxone Sodium 1 gm 06/06/21 15:48 Ceftriaxone 1gm Vial IM 06/06/21 15:49 ONCE ONE Lidocaine HCl 0 ml 06/06/21 15:48 Lidocaine 1% 5ml Pf Vial IM 06/06/21 15:49 ONCE ONE Methylprednisolone Sodium Succinate 125 mg 06/06/21 15:48 Methylprednisolone Sod Succ 125mg Vial IM 06/06/21 15:49 ONCE ONE [facility] [place] HPI - General Stated complaint: bronchitis Time Seen by Provider: 06/06/21 15:44 Mode of Arrival: Ambulatory Source of Information: Patient Limitations: No Limitations Description of Symptoms (Recalled from Triage Doc. by RN): PATIENT C/O CONGESTION AND NON-PRODUCTIVE COUG X 4 DAYS HEENT Symptoms (Recalled from RN notes): No Resp Symptoms (Recalled from RN notes): Yes Skin Symptoms (Recalled from RN notes): No MS Symptoms (Recalled from RN notes): No Functional Status (Recalled from RN notes): WNL - History of Present Illness Provider Complaint: He states that for the past 3 days he has had a worsening cough, sinus congestion and chest congestion. He has a history of copd. He has been fully vaccinated against covid-19. - Related Data Home Medications Medication Instructions Recorded Confirmed aspirin 81 mg tablet,delayed 81 mg PO ONCE 10/19/17 05/23/19 release atorvastatin 40 mg tablet 40 mg PO ONCE 10/19/17 05/23/19 diphenhydramine HCl 25 mg capsule 25 mg PO QHS PRN 10/19/17 05/23/19 losartan 50 mg tablet 50 mg PO ONCE 10/19/17 05/23/19 metformin 500 mg tablet 500 mg PO ONCE tab 10/19/17 05/23/19 metoprolol succinate 25 mg 25 mg PO ONCE 10/19/17 05/23/19 tablet,extended release 24 hr nicotine 1 patch TRANSDERMA ONCE 10/19/17 05/23/19 21mg/24hr-14mg/24hr-7mg/24hr daily transderm patches,sequentl omeprazole 20 mg tablet,delayed 20 mg PO ONCE tab 10/19/17 05/23/19 release umeclidinium 62.5 mcg-vilanterol 1 inh INHALATION Q24H 10/19/17 05/23/19 25 mcg/actuation powdr for inhalation Previous Rx's Medication Instructions Recorded azithromycin 250 mg tablet 250 mg PO QDAY 5 Days #6 tab 07/10/18 benzonatate 200 mg capsule 200 mg PO TID PRN 7 Days #21 cap 07/10/18 Mupirocin Calcium [Mupirocin 2% 1 appl
[2021-06-06 16:10] VITALS: BP 120/73; PULSE 76; RESP 19; TEMP 36.9; O2SAT 96
== END 2021-06-06 16:14 | disposition home or self-care (01) ==
PROVIDERS: Emergency Provider Nurse Practitioner Family; PCP Internal Medicine Adolescent Medicine
DX: J44.1 Chronic obstructive pulmonary disease with (acute) exacerbation (principal); J01.90 Acute sinusitis, unspecified; Z20.822 Contact with and (suspected) exposure to COVID-19; E11.9 Type 2 diabetes mellitus without complications; E78.5 Hyperlipidemia, unspecified; I10 Essential (primary) hypertension; F17.210 Nicotine dependence, cigarettes, uncomplicated
CPT/HCPCS: G0463; 96372; 99202; C9803; U0003; U0005

== ENCOUNTER → 2021-09-04 13:12 | Outpatient (CLI) | payer MEDICARE, OTHER, SELFPAY ==
[2021-09-04 13:36] LABS: Basophils # 0.1 K/mm3 (0-0.2); Basophils % 0.7 % (0.1-2.0); Eosinophils # 0.4 K/mm3 (0.0-0.4); Eosinophils % 4.1 % (0.1-12.0); Hematocrit 51.2 % (42.0-52.0); Hemoglobin 16.8 g/dL (14.1-18.0); Lymphocytes # 1.9 K/mm3 (0.7-4.5); Lymphocytes % 22.6 % (10-50); Mean Corpuscular HGB Conc 32.7 g/dL (31.8-35.4); Mean Corpuscular Hemoglobin 31.3 pg (27.0-31.2); Mean Corpuscular Volume 95.7 fl (80-94); Mean Platelet Volume 8.8 fl (7.4-10.4); Monocytes # 0.5 K/mm3 (0.1-1.0); Monocytes % 6.3 % (1.7-9.3); Neutrophils # 5.7 K/mm3 (1.8-7.8); Neutrophils % 66.2 % (37.0-80.0); Platelet Count 183 K/mm3 (142-424); Red Blood Count 5.35 M/mm3 (4.60-6.20); Red Cell Distribution Width 13.7 % (11.5-17.5); White Blood Count 8.5 K/mm3 (4.8-10.8)
[2021-09-04 14:26] LABS: Alanine Aminotransferase 16 U/L (12-78); Albumin Level 4.3 g/dl (3.5-5.0); Albumin/Globulin Ratio 1.7 (1.1-1.8); Alkaline Phosphatase 57 U/L (38-126); Anion Gap 10.2 mEq/L (5-15); Aspartate Amino Transferase 24 U/L (17-59); Bilirubin,Total 0.9 mg/dl (0.2-1.3); Blood Urea Nitrogen 20 mg/dl (9-20); Calcium 9.4 mg/dl (8.4-10.2); Carbon Dioxide 35 mmol/L (22.0-30.0); Chloride 99 mmol/L (98-107); Chol/HDL Ratio 3.2 (1-3.5); Cholesterol 130 mg/dl (140-200); Estimated Glomerular Filt Rate 110 ml/min (>60); GFR (African American) 133 ML/MIN (>60); Globulin 2.5 g/dL (1.3-3.2); Glucose 118 mg/dl (74-100); HDL Cholesterol 41 mg/dl (40-60); Potassium 4.2 mmoL/L (3.5-5.1); Sodium 140 mmol/L (136-145); Total Protein,Serum 6.8 g/dl (6.3-8.2); Triglycerides 232 mg/dl (30-150); VLDL Cholesterol 46 mg/dL (0-40)
[2021-09-04 14:34] LABS: Hemoglobin A1C 6.2 % (4.0-6.0)
[2021-09-04 14:37] LABS: Direct LDL Cholesterol 46.97 mg/dL (100-129)
== END ==
PROVIDERS: Visit Provider Internal Medicine Adolescent Medicine
DX: I25.10 Atherosclerotic heart disease of native coronary artery without angina pectoris (principal); E78.5 Hyperlipidemia, unspecified; Z79.899 Other long term (current) drug therapy
CPT/HCPCS: 36415; 80053; 80061; 83036; 85025

== ENCOUNTER 2022-01-08 12:19 | Emergency (ER) | payer MEDICARE, OTHER, SELFPAY ==
[2022-01-08 12:30] VITALS: BP 141/78; PULSE 91; RESP 20; TEMP 36.6; O2SAT 99; BMI 29.7
[2022-01-08 12:45] LABS: Apearance,Urine Clear (Clear); Blood, Urine Trace (Negative); Color,Urine Dark Yellow (Yellow); Glucose,Urine (UA) Negative (Negative); Ketones,Urine Negative (Negative); Protein,Urine Negative (Negative)
--- NOTE | 2022-01-08 12:45 | HMH.EDUTC ---
[facility] [place] Clinical Impression: UTI (urinary tract infection) Qualifiers: Urinary tract infection type: site unspecified Hematuria presence: with hematuria Qualified Code(s): N39.0 - Urinary tract infection, site not specified; R31.9 - Hematuria, unspecified Disposition: Home, Self-Care Condition on Discharge: Good Instructions: DI for Urinary Tract Infection (UTI), Urinary Tract Infection, Cefdinir Additional Instructions: *Increase fluids. Water not Soda or Tea *Start antibiotic immediately and be sure to take as ordered for the FULL length of time although you should start to see improvement over the next 48 hours *Be SURE to follow up anytime for new or worsening symptoms with your family doctor. AND in 48 hours for urine culture results with your family doctor, if you do not have a doctor then you may call back to the [facility] for urine culture results and further treatment. We do recommend that you choose and establish care with a Primary Care Physician. AND follow up with them in 10-14 days to repeat UA to ensure infection is resolved and blood no longer present *Be sure to let your PCP know that we sent urine cultures from the [facility] so they can follow up to ensure that you area the on the correct antibiotic Call your doctor office and make appointment for 48 hours (2 days from today) to follow up and get the results of your urine culture and further treatment Follow up immediately if no improvement or any worsening of symptoms Return if needed Straight to ER if any worsening of symptoms or life threatening symptoms Prescriptions: Cefdinir [Omnicef 300mg Capsule] 300 mg PO BID 7 Days #14 cap Transmission Status: Pending to [id number] Referrals: Omar Guzman MD [Primary Care Provider] - As needed Time of Disposition: 12:59 Medical Decision Making - Christiano Inquiry Pt receiving controlled substance: No Christiano was queried for this patient: No Vital Signs: 01/08/22 12:30 Temperature 97.9 F Temperature Source Oral Pulse Rate [Right Brachial] 91 H Respiratory Rate 20 Blood Pressure [Right Arm] 141/78 H Blood Pressure Mean [Right Arm] 99 Blood Pressure Source [Right Arm] Automatic Cuff Blood Pressure Position [Right Arm] Sitting 02 Sat by Pulse Oximetry 99 Oxygen Delivery Method Room Air - Lab Data Lab results reviewed: Yes: I reviewed the patient's lab results. Orders (Tests/Meds): ORDERS Category Date Time Status Urine Culture Stat Micro 01/08/22 12:39 Received [facility] [place] - General Stated complaint: possible kidney inf Time Seen by Provider: 01/08/22 12:45 Mode of Arrival: Ambulatory Source of Information: Patient Limitations: No Limitations Description of Symptoms (Recalled from Triage Doc. by RN): PATIENT STATES HE HAD BLOOD IN HIS URINE YESTERDAY AND HIS HAVING SORENESS/TIGHTNESS TO LOWER ABDOMEN X 2 DAYS HEENT Symptoms (Recalled from RN notes): No Resp Symptoms (Recalled from RN notes): No Skin Symptoms (Recalled from RN notes): No MS Symptoms (Recalled from RN notes): No Functional Status (Recalled from RN notes): WNL - History of Present Illness Provider Complaint: Patient states that he noticed yesterday that his urine was dark, had achy like feeling in his back/kidneys, had blood in it at times, burning with urination States that he feels like he does when he has a UTI States that today he has still felt achy on and off and burning when he urinates so he came in to get checked before he left tomorrow - Related Data Home Medications Medication Instructions Recorded Confirmed aspirin 81 mg tablet,delayed 81 mg PO ONCE 10/19/17 05/23/19 release atorvastatin 40 mg tablet 40 mg PO ONCE 10/19/17 05/23/19 diphenhydramine HCl 25 mg capsule 25 mg PO QHS PRN 10/19/17 05/23/19 losartan 50 mg tablet 50 mg PO ONCE 10/19/17 05/23/19 metformin 500 mg tablet 500 mg PO ONCE tab 10/19/17 05/23/19 metoprolol succinate 25 mg 25 mg PO ONCE 10/19/17 05/23/19 tablet,extended relea
[2022-01-08 12:46] LABS: Bilirubin,Urine Negative (Negative); UTC Leukocyte Esterase,Urine Negative (Negative); UTC Nitrate,Urine Negative (Negative); Urobilinogen,Urine 0.2 EU/dl (0.2)
[2022-01-08 13:02] VITALS: BP 141/78; PULSE 91; RESP 20; TEMP 36.6; O2SAT 99
== END 2022-01-08 13:06 | disposition home or self-care (01) ==
PROVIDERS: Emergency Provider Nurse Practitioner; PCP Internal Medicine Adolescent Medicine
DX: N39.0 Urinary tract infection, site not specified (principal); R31.9 Hematuria, unspecified
CPT/HCPCS: 81003; 87086; 99212; G0463

== ENCOUNTER 2022-06-22 15:48 | Emergency (ER) | payer MEDICARE, OTHER, SELFPAY ==
--- NOTE | 2022-06-22 17:32 | EXP.UTC ---
Discharge Plan Disposition Patient Disposition: Home, Self-Care Condition: Good Prescriptions Prescriptions: New benzonatate [benzonatate] 100 mg capsule 100 mg PO TIDP PRN (Reason: Cough) Qty: 30 0RF methylprednisolone 4 mg Tablets,Dose Pack 4 mg PO DIRECTED Qty: 21 0RF amoxicillin-pot clavulanate 875-125 mg Tablet 1 tab PO Q12H Qty: 20 0RF No Action azithromycin 250 mg tablet 250 mg PO QDAY 5 Days Qty: 6 0RF Rx Instructions: ii tabs day one, i tab days 2-5 benzonatate 200 mg capsule 200 mg PO TID PRN (Reason: cough) 7 Days Qty: 21 0RF aspirin [Adult Low Dose Aspirin] 81 mg tablet,delayed release (DR/EC) 81 mg PO ONCE diphenhydramine HCl [Benadryl] 25 mg capsule 25 mg PO QHS PRN nicotine 21-14-7 mg/24 hr patch, TD daily, sequential 1 patch TRANSDERMA ONCE metoprolol succinate 25 mg tablet extended release 24 hr 25 mg PO ONCE omeprazole 20 mg tablet,delayed release (DR/EC) 20 mg PO ONCE umeclidinium-vilanterol [Anoro Ellipta] 62.5-25 mcg/actuation blister with device 1 inh INHALATION Q24H metformin 500 mg tablet 500 mg PO ONCE losartan [Cozaar] 50 mg tablet 50 mg PO ONCE atorvastatin 40 mg tablet 40 mg PO ONCE mupirocin calcium 15 GM cream 1 applicatio TP TID Qty: 15 0RF Rx Instructions: apply directly to sores on leg clindamycin HCl 300 MG capsule 300 mg PO Q8H 7 Days Qty: 21 0RF methylprednisolone 4 MG tablets,dose pack 4 mg PO DIRECTED 6 Days Qty: 21 0RF amoxicillin-pot clavulanate 1 EACH tablet 1 tab PO Q12H 10 Days Qty: 20 0RF benzonatate 100 MG capsule 100 mg PO TIDP PRN (Reason: Cough) Qty: 30 0RF cefdinir 300 MG capsule 300 mg PO BID 7 Days Qty: 14 0RF Referrals Follow up/Referrals: Omar Guzman MD [Primary Care Provider] - See instructions Activity Restrictions/Add. Instructions Additional Instructions/Restrictions: Drink plenty of fluids. Take tylenol or ibuprofen for pain or fever. Take the medications as directed. Follow up with your regular doctor. GO TO THE ER FOR ANY WORSENING SYMPTOMS Don't start the oral steroids until tomorrow, since you had the shot here today. Clinical Impressions Clinical Impression: Sinusitis, COPD exacerbation Instructions Patient Instructions: Sinusitis, Acute Bronchitis, DI for Sinusitis, DI for Acute Bronchitis Discharge ED Provider: Keyshawn Palacio [facility] [place] General Stated complaint: soa, cough, h/a, body aches Time Seen by Provider: 06/22/22 17:52 History of Present Illness Provider Complaint: He states that for the past 5 days he has had sinus congestion and chest congestion. He usually gets a sinus infection and bronchitis this time every year and he states that that is what's happening now. He refuses a covid-19 test any other tests. Related Data Home Medications Medication Instructions Recorded Confirmed aspirin 81 mg tablet,delayed 81 mg PO ONCE 10/19/17 05/23/19 release (Adult Low Dose Aspirin) atorvastatin 40 mg tablet 40 mg PO ONCE 10/19/17 05/23/19 diphenhydramine HCl 25 mg capsule 25 mg PO QHS PRN 10/19/17 05/23/19 (Benadryl) losartan 50 mg tablet (Cozaar) 50 mg PO ONCE 10/19/17 05/23/19 metformin 500 mg tablet 500 mg PO ONCE 10/19/17 05/23/19 metoprolol succinate 25 mg 25 mg PO ONCE 10/19/17 05/23/19 tablet,extended release 24 hr nicotine 1 patch transdermal ONCE 10/19/17 05/23/19 21mg/24hr-14mg/24hr-7mg/24hr daily transderm patches,sequentl omeprazole 20 mg tablet,delayed 20 mg PO ONCE 10/19/17 05/23/19 release umeclidinium 62.5 mcg-vilanterol 1 inh inhalation Q24H 10/19/17 05/23/19 25 mcg/actuation powdr for inhalation (Anoro Ellipta) Previous Rx's Medication Instructions Recorded azithromycin 250 mg tablet 250 mg PO QDAY sinusitis 5 days #6 07/10/18 tabs benzonatate 200 mg capsule 200 mg PO TID PRN cough 7 days #21 07/10/18 caps clindamyci
[2022-06-22 18:04] VITALS: BP 120/77; PULSE 115; RESP 16; TEMP 37.2; O2SAT 95; BMI 27.3
[2022-06-22 18:23] VITALS: BP 120/77; PULSE 115; RESP 16; TEMP 37.2
== END 2022-06-22 18:28 | disposition home or self-care (01) ==
PROVIDERS: Emergency Provider Nurse Practitioner Family; PCP Internal Medicine Adolescent Medicine
DX: J44.1 Chronic obstructive pulmonary disease with (acute) exacerbation (principal); J32.9 Chronic sinusitis, unspecified
CPT/HCPCS: 96372; 99212; G0463

== ENCOUNTER → 2022-10-02 14:07 | Outpatient (CLI) | payer MEDICARE, OTHER, SELFPAY ==
--- NOTE | 2022-10-02 14:15 | CT_ITS ---
FINAL REPORT TECHNIQUE: Axial CT images of the chest were obtained without contrast. Low-dose protocol was utilized. This study was performed with techniques to keep radiation doses as low as reasonably achievable (ALARA). Individualized dose reduction techniques using automated exposure control or adjustment of mA and/or kV according to the patient's size were employed. CLINICAL HISTORY: SMOKER, 1 PK PER DAY X 60 YRS COPD COMPARISON: None available FINDINGS: CT CHEST WITHOUT, LOW DOSE SCREENING CT Di Vol: 2.90 mGy DLP: 114.11 mGy*cm There is no axillary, mediastinal, or hilar adenopathy. The heart size is normal. There is mild vascular calcification of the aortic arch. There is no pleural or pericardial effusion. The lung windows show moderate changes of central lobular emphysema. There are coarse interstitial opacities bilaterally probably due to mild chronic fibrosis. There is a localized ground-glass density measuring about 9 mm in the periphery of the right upper lobe. Limited images of the upper abdomen demonstrate a calcified gallstone in the gallbladder. There are calcifications within the liver adjacent to the gallbladder fossa. IMPRESSION: Fibrosis. Ground-glass opacity right upper lobe. LR Category 2: 12 month follow-up low-dose chest CT is recommended. Reviewed, Interpreted and Dictated by Frank Young MD Transcribed by Dede Aviles Authenticated and [facility]
== END ==
PROVIDERS: PCP Internal Medicine Adolescent Medicine; Visit Provider Internal Medicine Adolescent Medicine
DX: Z87.891 Personal history of nicotine dependence (principal); Z12.2 Encounter for screening for malignant neoplasm of respiratory organs
CPT/HCPCS: 71271

== ENCOUNTER 2023-08-29 13:34 | Emergency (ER) | payer MEDICARE, OTHER, SELFPAY ==
[2023-08-29 15:00] VITALS: BP 111/72; PULSE 91; RESP 19; TEMP 36.4; O2SAT 98; BMI 26.7
[2023-08-29 15:37] LABS: UTC Influenza A Antigen Negative (Negative); UTC Influenza B Antigen Negative (Negative)
--- NOTE | 2023-08-29 15:37 | EXP.UTC ---
Discharge Plan Disposition Patient Disposition: Home, Self-Care Condition: Good Prescriptions Prescriptions: New mupirocin 2 % ointment 1 applic topical TID Qty: 22 0RF cefdinir 300 mg capsule 300 mg PO BID 7 Days Qty: 14 0RF No Action azithromycin 250 mg tablet 250 mg PO QDAY 5 Days Qty: 6 0RF Rx Instructions: ii tabs day one, i tab days 2-5 benzonatate 200 mg capsule 200 mg PO TID PRN (Reason: cough) 7 Days Qty: 21 0RF aspirin [Adult Low Dose Aspirin] 81 mg tablet,delayed release (DR/EC) 81 mg PO ONCE diphenhydramine HCl [Benadryl] 25 mg capsule 25 mg PO QHS PRN nicotine 21-14-7 mg/24 hr patch, TD daily, sequential 1 patch TRANSDERMA ONCE metoprolol succinate 25 mg tablet extended release 24 hr 25 mg PO ONCE omeprazole 20 mg tablet,delayed release (DR/EC) 20 mg PO ONCE umeclidinium-vilanterol [Anoro Ellipta] 62.5-25 mcg/actuation blister with device 1 inh INHALATION Q24H metformin 500 mg tablet 500 mg PO ONCE losartan [Cozaar] 50 mg tablet 50 mg PO ONCE atorvastatin 40 mg tablet 40 mg PO ONCE mupirocin calcium 15 GM cream 1 applicatio TP TID Qty: 15 0RF Rx Instructions: apply directly to sores on leg clindamycin HCl 300 MG capsule 300 mg PO Q8H 7 Days Qty: 21 0RF methylprednisolone 4 MG tablets,dose pack 4 mg PO DIRECTED 6 Days Qty: 21 0RF amoxicillin-pot clavulanate 1 EACH tablet 1 tab PO Q12H 10 Days Qty: 20 0RF benzonatate 100 MG capsule 100 mg PO TIDP PRN (Reason: Cough) Qty: 30 0RF benzonatate [benzonatate] 100 mg capsule 100 mg PO TIDP PRN (Reason: Cough) Qty: 30 0RF methylprednisolone 4 mg Tablets,Dose Pack 4 mg PO DIRECTED Qty: 21 0RF amoxicillin-pot clavulanate 875-125 mg Tablet 1 tab PO Q12H Qty: 20 0RF cefdinir 300 MG capsule 300 mg PO BID 7 Days Qty: 14 0RF Referrals Follow up/Referrals: Omar Guzman MD [Primary Care Provider] - See instructions Activity Restrictions/Add. Instructions Additional Instructions/Restrictions: Apply topical mupirocin to the sores just inside nose Take oral antibiotics as prescribed Follow up with your Family Doctor if no improvement or any worsening of symptoms Straight to ER if any life threatening symptoms Clinical Impressions Clinical Impression: Sinusitis Instructions Patient Instructions: DI for Sinusitis, Mupirocin, Cefdinir Discharge ED Provider: Destini Garcia [facility] [place] HPI General Stated complaint: sore throat, body aches,fever Mode of Arrival: Ambulatory Source of Information: Patient Limitations: No Limitations Time Seen by Provider: 08/29/23 15:37 Description of Symptoms (Recalled from Triage Doc. by RN): PATIENT C/O BODY ACHES, CHILLS, FEVER AND RUNNY NOSE X 2 DAYS HEENT Symptoms (Recalled from RN notes): Yes Resp Symptoms (Recalled from RN notes): No Skin Symptoms (Recalled from RN notes): No MS Symptoms (Recalled from RN notes): No Functional Status (Recalled from RN notes): WNL History of Present Illness Provider Complaint: Patient states that he hasnt been feeling well for a couple of days states that he has been feeling a little feverish, body aches, chills here and there and has sores up in his nose and hurting at times States that today he wasnt feeling any better so he came in to get checked Related Data Home Medications Medication Instructions Recorded Confirmed aspirin 81 mg tablet,delayed 81 mg PO ONCE 10/19/17 05/23/19 release (Adult Low Dose Aspirin) atorvastatin 40 mg tablet 40 mg PO ONCE 10/19/17 05/23/19 diphenhydramine HCl 25 mg capsule 25 mg PO QHS PRN 10/19/17 05/23/19 (Benadryl) losartan 50 mg tablet (Cozaar) 50 mg PO ONCE 10/19/17 05/23/19 metformin 500 mg tablet 500 mg PO ONCE 10/19/17 05/23/19 metoprolol succinate 25 mg 25 mg PO ONCE 10/19/17 05/23/19 tablet,extended release 24 hr nicotine 1 patch transdermal ONCE 10/19/17 05/23/19 21mg/24hr-14mg/24hr-7mg/24hr daily transderm patches,sequentl omeprazole 20 mg tablet,delayed 20 mg PO ONCE 10/19/17 05/23/19 release umeclidinium 62.5 mcg-vilanterol 1 inh inhalation Q24H 10/19/17 05/23/19 25 mcg/actuation powdr for inhalation (Anoro Ellipta) Previous Rx's Medication Instructions Recorded azithromycin 250 mg tablet 250 mg PO QDAY sinusitis 5 days #6 07/10/18 tabs benzonatate 200 mg capsule 200 mg PO TID PRN cough 7 days #21 07/10/18 caps clindamycin HCl 300 mg capsule 300 mg PO Q8H 7 days #21 caps 04/16/21 mupirocin calcium 2 % topical cream 1 applicatio TP TID ##15 04/16/21 amoxicillin 875 mg-potassium 1 tab PO Q12H 10 days #20 tabs 06/06/21 clavulanate 125 mg tablet benzonatate 100 mg capsule 100 mg PO TIDP PRN Cough #30 caps 06/06/21 methylprednisolone 4 mg tablets in 4 mg PO DIRECTED 6 days #21 06/06/21 a dose pack packets cefdinir 300 mg capsule 300 mg PO BID 7 days #14 caps 01/08/22 amoxicillin 875 mg-potassium 1 tab PO Q12H #20 tabs 06/22/22 clavulanate 125 mg tablet benzonatate 100 mg capsule 100 mg PO TIDP PRN Cough #30 caps 06/22/22 methylprednisolone 4 mg tablets in 4 mg PO DIRECTED #21 tabs 06/22/22 a dose pack cefdinir 300 mg capsule 300 mg PO BID 7 days #14 caps 08/29/23 mupirocin 2 % topical ointment 1 applic topical TID #22 grams 08/29/23 Allergies Allergy/AdvReac Type Severity Reaction Status Date / Time No Known Allergies Allergy Verified 05/23/19 13:44 Worker's Comp Is this a Worker's Comp case?: No [facility] Disclaimer: The information contained in this section may have been updated after the patient was seen, as this information can be updated by other users. Social History Smoking Status: Current every day smoker tobacco type: cigarettes packs per day: 1 alcohol intake: never substance use type: denies use current occupational status: other Travel in the last 8 weeks: None household members: none housing: house ROS Obtained: Yes All systems reviewed & no additional complaints except as documented and Yes Systems reviewed as appropriate & no additional complaints except as documented Physical Exam General General appearance: alert and in no apparent distress ENT ENT exam: Present mucous membranes moist Expanded ENT Exam TM/Canal exam: Right TM: effusion Nose exam: Present sinus tenderness (sore like lesions noted inside of nose) Throat exam: Present other (Pharyngeal erytema noted with PND) Respiratory Respiratory exam: Present normal lung sounds bilaterally; Absent respiratory distress or wheezes Cardiovascular Cardiovascular exam: Present regular rate, normal rhythm and normal heart sounds Abdominal Exam Abdominal exam: Present soft and normal bowel sounds; Absent distention or tenderness Neurological Exam Neurological exam: Present alert, oriented X3 and normal gait Medical Decision Making Christiano Inquiry Pt receiving controlled substance: No Christiano was queried for this patient: No Vital Signs: 08/29/23 15:00 Temperature 97.5 F L Temperature Source Oral Pulse Rate [Left Brachial] 91 H Respiratory Rate 19 Blood Pressure [Left Arm] 111/72 Blood Pressure Mean [Left Arm] 85 Blood Pressure Source [Left Arm] Automatic Cuff Blood Pressure Position [Left Arm] Sitting 02 Sat by Pulse Oximetry 98 Oxygen Delivery Method Room Air Lab Data Lab results reviewed: Yes I reviewed the patient's lab results. Medical Decision Narrative: medication discussed with pharmacy
[2023-08-29 15:49] VITALS: BP 111/72; PULSE 91; RESP 19; TEMP 36.4; O2SAT 98
== END 2023-08-29 15:52 | disposition home or self-care (01) ==
PROVIDERS: Emergency Provider Nurse Practitioner; PCP Internal Medicine Adolescent Medicine
DX: J01.90 Acute sinusitis, unspecified (principal); R50.9 Fever, unspecified; R07.0 Pain in throat; M79.18 Myalgia, other site; F17.210 Nicotine dependence, cigarettes, uncomplicated
CPT/HCPCS: 87804; 99212; 99214; G0463

== ENCOUNTER 2023-10-01 20:22 | Emergency (ER) | payer MEDICARE, OTHER, SELFPAY ==
[2023-10-01 20:23] VITALS: BP 140/88; PULSE 91; RESP 18; TEMP 36.5; O2SAT 95; BMI 56.6
--- NOTE | 2023-10-01 20:39 | ECG_ITS ---
APPROVED REPORT Exam: Resting ECG HR:86 bpm ECG Measurements Heart Rate 86 AXES DC 160 P 61 QRSd 138 QRS -83 QT 399 T 76 QTc 443 Conclusion SINUS RHYTHM WITH SINUS ARRHYTHMIA LEFT AXIS DEVIATION [QRS AXIS < -30] RIGHT BUNDLE BRANCH BLOCK [120+ ms QRS DURATION, UPRIGHT V1, 40+ ms S IN I/aVL/V4/V5/V6] POSSIBLE SEPTAL MYOCARDIAL INFARCTION , PROBABLY OLD [30 ms Q WAVE IN V1/V2] Electronically signed by : YOUSIF BATISTA, 10/02/2023 07:49:54
--- NOTE | 2023-10-01 20:40 | XR_ITS ---
PROCEDURE INFORMATION: Exam: XR Right Ribs with PA Chest Exam date and time: 10/01/2023 8:41 PM Age: 78 years old Clinical indication: Other: Upper right rib pain; Additional info: Right upper chest pain TECHNIQUE: Imaging protocol: Radiologic exam of the right ribs with PA chest. Views: 3 views COMPARISON: CT LUNG SCREENING 10/02/2022 2:19 PM FINDINGS: Lungs: No consolidation. Right upper lobe scarring. Left mid lung subcentimeter calcified granuloma as seen on prior CT. Pleural spaces: No pleural effusion. No pneumothorax. Heart/Mediastinum: Tortuosity of the descending thoracic aorta. Otherwise cardiomediastinal silhouette. Diaphragm: Eventration of the right hemidiaphragm Bones/joints: No acute osseous abnormality. IMPRESSION: No acute findings.
--- NOTE | 2023-10-01 21:12 | HMH.EDGENADL ---
Discharge Plan Disposition Patient Disposition: Home, Self-Care Chief Complaint: Chest Pain Prescriptions Prescriptions: No Action azithromycin 250 mg tablet 250 mg PO QDAY 5 Days Qty: 6 0RF Rx Instructions: ii tabs day one, i tab days 2-5 benzonatate 200 mg capsule 200 mg PO TID PRN (Reason: cough) 7 Days Qty: 21 0RF aspirin [Adult Low Dose Aspirin] 81 mg tablet,delayed release (DR/EC) 81 mg PO ONCE diphenhydramine HCl [Benadryl] 25 mg capsule 25 mg PO QHS PRN nicotine 21-14-7 mg/24 hr patch, TD daily, sequential 1 patch TRANSDERMA ONCE metoprolol succinate 25 mg tablet extended release 24 hr 25 mg PO ONCE omeprazole 20 mg tablet,delayed release (DR/EC) 20 mg PO ONCE umeclidinium-vilanterol [Anoro Ellipta] 62.5-25 mcg/actuation blister with device 1 inh INHALATION Q24H metformin 500 mg tablet 500 mg PO ONCE losartan [Cozaar] 50 mg tablet 50 mg PO ONCE atorvastatin 40 mg tablet 40 mg PO ONCE mupirocin calcium 15 GM cream 1 applicatio TP TID Qty: 15 0RF Rx Instructions: apply directly to sores on leg clindamycin HCl 300 MG capsule 300 mg PO Q8H 7 Days Qty: 21 0RF methylprednisolone 4 MG tablets,dose pack 4 mg PO DIRECTED 6 Days Qty: 21 0RF amoxicillin-pot clavulanate 1 EACH tablet 1 tab PO Q12H 10 Days Qty: 20 0RF benzonatate 100 MG capsule 100 mg PO TIDP PRN (Reason: Cough) Qty: 30 0RF benzonatate [benzonatate] 100 mg capsule 100 mg PO TIDP PRN (Reason: Cough) Qty: 30 0RF methylprednisolone 4 mg Tablets,Dose Pack 4 mg PO DIRECTED Qty: 21 0RF amoxicillin-pot clavulanate 875-125 mg Tablet 1 tab PO Q12H Qty: 20 0RF cefdinir 300 MG capsule 300 mg PO BID 7 Days Qty: 14 0RF mupirocin 2 % ointment 1 applic topical TID Qty: 22 0RF cefdinir 300 mg capsule 300 mg PO BID 7 Days Qty: 14 0RF Referrals Follow up/Referrals: Besson,Omar, MD [Primary Care Provider] - See instructions Activity Restrictions/Add. Instructions Additional Instructions/Restrictions: Take Tylenol 1000 mg every 6 hours (4 times daily) and ibuprofen 400 mg every 6 hours (4 times daily) as needed with food and water to prevent GI upset and kidney damage. Call your family doctor to establish care for this visit to the emergency department and schedule follow-up within 48 hours to ensure improvement. If you have any worsening of your condition or any other concerning signs or symptoms, return to the emergency department or your primary care doctor for further evaluation. Clinical Impressions Clinical Impression: Acute chest wall pain Discharge ED Provider: Christian Harry General Adult HPI General Chief complaint: Chest Pain Stated complaint: AO 10/01/23 possible broken ribs Time Seen by Provider: 10/01/23 20:26 Mode of Arrival: Ambulatory Source of Information: Patient Limitations: No Limitations Description of Symptoms (Recalled from ER Triage Doc. by RN): Patient reports right upper chest pain since 09/25/23 after his son gave him a hug and he felt a pop and pain. Patient states that pain is intermittent, worse with movement and cough. Patient is concerned he has broken a rib and that the pain is becoming intolerable. 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 Patient denies shortness of breath, nausea, vomiting, pain radiation. History of Present Illness HPI narrative: 78-year-old male with no relevant medical history presenting with chest wall pain. He states that he was with family, his son gave him a hug on 09/25/2023 and he felt a pop and immediate pain in the anterior chest wall. Since that time, pain has gotten worse. He has been taking Tylenol with minimal relief. Pain is made worse with application of pressure, twisting motions, changing position, not exertional, not associated with cough, mops this, or shortness of breath. Does not radiate. Related Data Home Medications Medication Instructions Recorded Confirmed aspirin 81 mg tablet,delayed 81 mg PO ONCE 10/19/17 05/23/19 release (Adult Low Dose Aspirin) atorvastatin 40 mg tablet 40 mg PO ONCE 10/19/17 05/23/19 diphenhydramine HCl 25 mg capsule 25 mg PO QHS PRN 10/19/17 05/23/19 (Benadryl) losartan 50 mg tablet (Cozaar) 50 mg PO ONCE 10/19/17 05/23/19 metformin 500 mg tablet 500 mg PO ONCE 10/19/17 05/23/19 metoprolol succinate 25 mg 25 mg PO ONCE 10/19/17 05/23/19 tablet,extended release 24 hr nicotine 1 patch transdermal ONCE 10/19/17 05/23/19 21mg/24hr-14mg/24hr-7mg/24hr daily transderm patches,sequentl omeprazole 20 mg tablet,delayed 20 mg PO ONCE 10/19/17 05/23/19 release umeclidinium 62.5 mcg-vilanterol 1 inh inhalation Q24H 10/19/17 05/23/19 25 mcg/actuation powdr for inhalation (Anoro Ellipta) Previous Rx's Medication Instructions Recorded azithromycin 250 mg tablet 250 mg PO QDAY sinusitis 5 days #6 07/10/18 tabs benzonatate 200 mg capsule 200 mg PO TID PRN cough 7 days #21 07/10/18 caps clindamycin HCl 300 mg capsule 300 mg PO Q8H 7 days #21 caps 04/16/21 mupirocin calcium 2 % topical cream 1 applicatio TP TID ##15 04/16/21 amoxicillin 875 mg-potassium 1 tab PO Q12H 10 days #20 tabs 06/06/21 clavulanate 125 mg tablet benzonatate 100 mg capsule 100 mg PO TIDP PRN Cough #30 caps 06/06/21 methylprednisolone 4 mg tablets in 4 mg PO DIRECTED 6 days #21 06/06/21 a dose pack packets cefdinir 300 mg capsule 300 mg PO BID 7 days #14 caps 01/08/22 amoxicillin 875 mg-potassium 1 tab PO Q12H #20 tabs 06/22/22 clavulanate 125 mg tablet benzonatate 100 mg capsule 100 mg PO TIDP PRN Cough #30 caps 06/22/22 methylprednisolone 4 mg tablets in 4 mg PO DIRECTED #21 tabs 06/22/22 a dose pack cefdinir 300 mg capsule 300 mg PO BID 7 days #14 caps 08/29/23 mupirocin 2 % topical ointment 1 applic topical TID #22 grams 08/29/23 Allergies Allergy/AdvReac Type Severity Reaction Status Date / Time No Known Allergies Allergy Verified 05/23/19 13:[facility] Disclaimer: The information contained in this section may have been updated after the patient was seen, as this information can be updated by other users. Social History Smoking Status: Current every day smoker tobacco type: cigarettes packs per day: 1 alcohol intake: never substance use type: denies use current occupational status: other Travel in the last 8 weeks: None household members: none housing: house ROS Obtained: Yes All systems reviewed & no additional complaints except as documented Physical Exam General General appearance: alert and in no apparent distress Chest Chest inspection: Present symmetric chest wall rise and tenderness (Right anterior chest wall around ribs 4 and 5) Respiratory Respiratory exam: Present wheezes; Absent respiratory distress Cardiovascular Cardiovascular exam: Present regular rate and normal rhythm Neurological Exam Neurological exam: Present alert and oriented X3 Medical Decision Making Medical Records Medical records reviewed: Yes I reviewed the patient's medical records. Christiano Inquiry Pt receiving controlled substance: No Christiano was queried for this patient: No Vital Signs: 10/01/23 20:23 Temperature 97.7 F Temperature Source Oral Pulse Rate [Left Radial] 91 H Respiratory Rate 18 Blood Pressure [Right Arm] 140/88 Blood Pressure Mean [Right Arm] 105 Blood Pressure Source [Right Arm] Automatic Cuff Blood Pressure Position [Right Arm] Sitting 02 Sat by Pulse Oximetry 95 Oxygen Delivery Method Room Air Orders (Tests/Meds): ORDERS Category Date Time Status XR ribs RT min 3V w CXR1V Stat Exams 10/01/23 20:40 Completed Medical Decision Narrative: 78-year-old male with no relevant medical history presenting with chest wall pain. He states that he was with family, his son gave him a hug on 09/25/2023 and he felt a pop and immediate pain in the anterior chest wall. Since that time, pain has gotten worse. He has been taking Tylenol with minimal relief. Pain is made worse with application of pressure, twisting motions, changing position, not exertional, not associated with cough, mops this, or shortness of breath. Does not radiate. History obtained with patient. On physical exam, tenderness to anterior chest wall, lungs are clear to auscultation, saturating appropriately. No outward signs of injury or deformity. Rib series of the right side of the chest without acute abnormality on InPen interpretation. Because patient at baseline without signs or symptoms of clinical decompensation, deemed appropriate for discharge. Results were relayed to patient who voiced understanding and were agreeable to outpatient management and follow up. I discussed my clinical impression with patient and answered all questions. At this time, the evidence for any other entities in the differential is insufficient to warrant any further testing or ED observation. This was explained as well. Advisory was given that persistent or worsening symptoms require further evaluation. I confirmed the understanding of this discussion. Critical Care Critical Care Time Critical Care Time: No
--- NOTE | 2023-10-01 21:41 | PC.NURSE ---
radiology notified to check on status of xray reading
[2023-10-01 22:00] VITALS: BP 138/79; PULSE 87; RESP 18; TEMP 36.5; O2SAT 95
[2023-10-01] MEDS: LIDOCAINE 5% TRANSDERMAL PATCH 1 EACH TP (22:04)
== END 2023-10-01 22:05 | disposition home or self-care (01) ==
PROVIDERS: Emergency Provider Emergency Medicine; PCP Internal Medicine Adolescent Medicine
DX: R07.89 Other chest pain (principal); R94.31 Abnormal electrocardiogram [ECG] [EKG]; F17.210 Nicotine dependence, cigarettes, uncomplicated; W50.2XXA Accidental twist by another person, initial encounter
CPT/HCPCS: 71101; 93005; 99283

== ENCOUNTER 2023-10-14 15:21 | Outpatient (CLI) | payer MEDICARE, OTHER, SELFPAY ==
--- NOTE | 2023-10-14 15:24 | CT_ITS ---
FINAL REPORT CLINICAL HISTORY: H/O TOBACCO USE. Currently smokes 1 PPD x65 yrs. COPD & Emphysema. COMPARISON: 10/02/2022 FINDINGS: Axial images were obtained from the lung apex to the mid abdomen by computed tomography. Low-dose protocol was utilized. CTDl vol(mGy): 2.90 DLP (mGy-cm): 111.77 FINDINGS: There is no axillary adenopathy. There is no hilar or mediastinal adenopathy. The heart size is normal. There is no pericardial or pleural effusion. Limited images of the upper abdomen are unremarkable. Lung window images demonstrate moderate changes of centrilobular emphysema. Localized groundglass opacity in the posterior right upper lobe seen on image 23 of series 3 is stable compared to the prior exam. There is an area of subtle opacity and groundglass nodularity in the left upper lobe measuring 8 mm which is new compared to the prior exam. This is well-seen on image 40 of series 3. Density in the periphery of the right lower lobe measures 6 mm and is stable. This is well-seen on image 65 of series 3. IMPRESSION: New groundglass nodularity in the left upper lobe. Lung RADS category 4A. Recommend 3 month follow-up chest CT. Reviewed, Interpreted and Dictated by Frank Young MD Transcribed by Venice Latif Authenticated and [facility]
== END 2023-10-14 23:59 ==
LOC: RAD 15:22
PROVIDERS: PCP Internal Medicine Adolescent Medicine; Visit Provider Internal Medicine Adolescent Medicine
DX: Z87.891 Personal history of nicotine dependence (principal); Z12.2 Encounter for screening for malignant neoplasm of respiratory organs
CPT/HCPCS: 71271

== ENCOUNTER 2023-12-30 10:04 | Outpatient (CLI) | payer MEDICARE, OTHER, SELFPAY ==
[2023-12-30 11:31] LABS: Potassium 3.9 mmoL/L (3.5-5.1)
[2023-12-30 11:34] LABS: Alanine Aminotransferase 16 U/L (12-78); Albumin Level 3.6 g/dl (3.5-5.0); Alkaline Phosphatase 89 U/L (38-126); Aspartate Amino Transferase 25 U/L (17-59); Bilirubin,Indirect 0.7 mg/dL (0.0-0.9); Bilirubin,Total 0.7 mg/dl (0.2-1.3); Bilirubin,Unconjugated 0.7 mg/dL (0.0-1.1); Blood Urea Nitrogen 21 mg/dl (9-20); Estimated Glomerular Filt Rate 94 ml/min (>60); GFR (African American) 113 ML/MIN (>60); Total Protein,Serum 6.2 g/dl (6.3-8.2)
== END 2023-12-30 23:59 | disposition home or self-care (01) ==
LOC: LAB.DROPOF 10:08
PROVIDERS: PCP Internal Medicine Adolescent Medicine; Visit Provider Internal Medicine Infectious Disease
DX: H47.11 Papilledema associated with increased intracranial pressure (principal)
CPT/HCPCS: 80076; 82565; 84132; 84520

== ENCOUNTER 2024-03-28 14:47 | Outpatient (CLI) | payer MEDICARE, OTHER, SELFPAY ==
--- NOTE | 2024-03-28 | CA_ITS ---
FINAL REPORT TECHNIQUE: Ultrasound images of the deep venous system were obtained from the left groin to the calf veins. CLINICAL HISTORY: Left ankle swelling x3-5 days post cutting leg on car door. COMPARISON: None FINDINGS: The deep venous system is normally compressible. Normal flow is identified. IMPRESSION: No evidence of left lower extremity DVT. Reviewed, Interpreted and Dictated by Frank Young MD Transcribed by Dede Aviles Authenticated and [facility]
== END 2024-03-28 23:59 | disposition home or self-care (01) ==
LOC: RT 14:48
PROVIDERS: PCP Internal Medicine Adolescent Medicine; Visit Provider Internal Medicine Adolescent Medicine
DX: R60.0 Localized edema (principal)
CPT/HCPCS: 93971

== ENCOUNTER 2024-04-04 06:54 | Day surgery (SDC) | payer MEDICARE, OTHER, SELFPAY ==
[2024-03-31 12:57] VITALS: BMI 23.4
[2024-04-04 07:16] VITALS: BP 158/88; PULSE 64; RESP 18; TEMP 36.6; O2SAT 94
[2024-04-04] MEDS: CYCLOPENTOLATE 2% OPHTH SOLN 2ML BOTTLE OP ×3 (07:25→07:35)
[2024-04-04] MEDS: TETRACAINE 0.5% OPTH SOL 15ML OP ×4 (07:25→08:15)
[2024-04-04] MEDS: PHENYLEPHRINE 2.5% OPHTH SOLN 2ML OP ×3 (07:25→07:35)
[2024-04-04] MEDS: LACTATED RINGERS 1000ML 1,000 ML 25 ML IV (07:27)
[2024-04-04 07:32] LABS: POC Glucose,Bedside 138 (70-110)
[2024-04-04 08:29] VITALS: BP 171/90; PULSE 92; RESP 18; O2SAT 94
[2024-04-04] MEDS: MIDAZOLAM 2MG/2ML VIAL 1 MG IV (08:29)
[2024-04-04 08:34] VITALS: BP 152/90; PULSE 91; RESP 18; O2SAT 94
[2024-04-04 08:39] VITALS: BP 149/88; PULSE 89; RESP 18; O2SAT 95
[2024-04-04] MEDS: TIMOLOL 0.5% OPTH SOLN 5ML OP (08:42)
[2024-04-04] MEDS: LIDOCAINE 1% PF 2ML AMPULE 2 ML IJ (08:42)
[2024-04-04 08:44] VITALS: BP 154/92; PULSE 90; RESP 18; O2SAT 95
[2024-04-04] MEDS: TRI-MOXI 15MG/1MG/ML 1ML OPHTH VIAL 1 ML OP (08:47)
[2024-04-04 08:50] VITALS: BP 164/99; PULSE 91; RESP 17; TEMP 36.4; O2SAT 95
--- NOTE | 2024-04-04 11:04 | P.PCN_ITS ---
[facility] Procedure Note Date: 04/04/24 Time: 11:04 Procedure Note:: Preoperative Diagnosis: Cataract combined NS Cortical Complex [Left] Eye Postop diagnosis: same Operation: Microscopic phacoemulsification with intraocular lens implant left Eye Specimen: None Blood Loss: None The patient was examined in the office with a complaint of poor vision in the [left] eye. The patient reports that this interferes with ADLs such as reading, watching TV and/or driving or the vision is like looking through a foggy haze and is very troubling. The patient was examined and found to have a visually significant cataract with best corrected vision of [20/400] by refraction and/or glare testing. Treatment options, risks and benefits were explained and the patient elected to have cataract surgery in an attempt to improve their vision. The patient had the eye anesthetized with topical tetracaine, the eye ways prepped and draped in the usual fashion for cataract surgery. A paracentesis and a temporal keratotomy were made. 0.2cc of 1% lidocaine PF was placed into the anterior chamber. And aqueous/viscoelastic exchange was done and a 360 degree capsulorexis was performed. Through hydrodissection and delineation with BSS on a cannula was done. The lens nucleus was phecoemulsified with CDE of 14.38. Residual cortical material was removed using automated I&A The capsular bag was deepened with viscoelastica and a PCIOL was placed in the capsular bag with good centration and stability. Residual viscoelastic was removed using automated I&A. The keratotomy incision was hydrated with BSS on a cannula. The wound were checked and found to be water tight. IOP was checked digitally and adjusted as needed so as not to be too high. 1 drop of timolol 0.5%, ofloxacin, prednisolone acetate and ketorolac was instilled and eye shield taped over the eye. The patient was taken to recovery in good condition and will be seen postoperatively.
== END 2024-04-04 09:06 | disposition home or self-care (01) ==
PROVIDERS: PCP Internal Medicine Adolescent Medicine; Visit Provider Ophthalmology
PROC: (CPT 66984; principal; 2024-04-04 12:45)
DX: H25.812 Combined forms of age-related cataract, left eye (principal); E11.8 Type 2 diabetes mellitus with unspecified complications; Z79.84 Long term (current) use of oral hypoglycemic drugs
CPT/HCPCS: 66984; 82962; J2250; J7120; V2632

== ENCOUNTER 2024-04-18 06:41 | Day surgery (SDC) | payer MEDICARE, OTHER, SELFPAY ==
[2024-04-18] VITALS (7 sets, daily range): BP systolic 127–145; BP diastolic 74–89; PULSE 64–76; RESP 17–18; TEMP 36.7; O2SAT 94–98
[2024-04-18] MEDS: TETRACAINE 0.5% OPTH SOL 15ML OP ×3 (07:50→08:00)
[2024-04-18] MEDS: PHENYLEPHRINE 2.5% OPHTH SOLN 2ML OP ×3 (07:50→08:00)
[2024-04-18] MEDS: CYCLOPENTOLATE 2% OPHTH SOLN 2ML BOTTLE OP ×2 (07:50→07:55)
[2024-04-18] MEDS: LACTATED RINGERS 1000ML 1,000 ML 25 ML IV (07:54)
[2024-04-18 08:00] LABS: POC Glucose,Bedside 110 (70-110)
[2024-04-18] MEDS: MIDAZOLAM 2MG/2ML VIAL 1 MG IV (08:48)
[2024-04-18] MEDS: TRI-MOXI 15MG/1MG/ML 1ML OPHTH VIAL 1 ML OP (09:00)
[2024-04-18] MEDS: TIMOLOL 0.5% OPTH SOLN 5ML OP (09:00)
[2024-04-18] MEDS: LIDOCAINE 1% PF 2ML AMPULE 2 ML IJ (09:00)
--- NOTE | 2024-04-18 11:38 | HMH.PROCNOTE ---
[facility] Procedure Note Date: 04/18/24 Time: 11:38 Procedure Note:: Preoperative Diagnosis: Cataract combined NS Cortical Complex [Left] Eye Postop diagnosis: same Operation: Microscopic phacoemulsification with intraocular lens implant [Left] Eye Specimen: None Blood Loss: None The patient was examined in the office with a complaint of poor vision in the [left] eye. The patient reports that this interferes with ADLs such as reading, watching TV and/or driving or the vision is like looking through a foggy haze and is very troubling. The patient was examined and found to have a visually significant cataract with best corrected vision of [20/200] by refraction and/or glare testing. Treatment options, risks and benefits were explained and the patient elected to have cataract surgery in an attempt to improve their vision. The patient had the eye anesthetized with topical tetracaine, the eye ways prepped and draped in the usual fashion for cataract surgery. A paracentesis and a temporal keratotomy were made. 0.2cc of 1% lidocaine PF was placed into the anterior chamber. And aqueous/viscoelastic exchange was done and a 360 degree capsulorexis was performed. Through hydrodissection and delineation with BSS on a cannula was done. The lens nucleus was phecoemulsified with CDE of [18.39]. Residual cortical material was removed using automated I&A The capsular bag was deepened with viscoelastica and a PCIOL was placed in the capsular bag with good centration and stability. Residual viscoelastic was removed using automated I&A. The keratotomy incision was hydrated with BSS on a cannula. The wound were checked and found to be water tight. IOP was checked digitally and adjusted as needed so as not to be too high. 1 drop of timolol 0.5%, ofloxacin, prednisolone acetate and ketorolac was instilled and eye shield taped over the eye. The patient was taken to recovery in good condition and will be seen postoperatively.
== END 2024-04-18 09:22 | disposition home or self-care (01) ==
PROVIDERS: PCP Internal Medicine Adolescent Medicine; Visit Provider Ophthalmology
PROC: (CPT 66984; principal; 2024-04-18 08:45)
DX: H25.812 Combined forms of age-related cataract, left eye (principal); E11.8 Type 2 diabetes mellitus with unspecified complications; Z79.84 Long term (current) use of oral hypoglycemic drugs
CPT/HCPCS: 66984; 82962; J2250; J7120; V2632

== ENCOUNTER 2024-10-11 15:00 | Outpatient (RCR) | payer MEDICARE, OTHER, SELFPAY ==
--- NOTE | 2024-10-03 17:19 | HMH.PTOPWND ---
Rehab Outpt Wound Evaluation Rehab OP Wound Evaluation Start: 10/03/24 13:44 Freq: Status: Active Protocol: Document 10/03/24 17:05 TEDDY (Rec: 10/03/24 17:16 PHORNE [id number]) E-signed By Joseph Nava, PT Subjective/History History History This is the initial PT Lymphedema eval for León Bedolla, 79 yowm who presents with B LE increased edema x ~ 6-8 mos with insidious onset of symptoms. He reports no c/o pain or tenderness at this time. He does report mild difficulty with donning his shoes due to edema. He has PMH of COPD, HTN, DM-II. He reports no significant surgeries at this time. Subjective Subjective Pain 0/10 in B LE, 0/4 TTP noted at this time. Considerable hemosiderin staining and dryness of the skin throughout B LE gaiter area. 4+ pitting edema to L foot with 3+ pitting edema to B lower legs otherwise. Blue telangiectasis noted to B medial ankle and foot. New diagnosis of cancer in past 12 No months? 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 Stemmer's sign Stemmer's Sign yes Stage of Lymphedema Lymphedema stages Stage I (Pitting edema, reduces w/ elevation, no fibrosis) Skin Changes Dry Skin Yes Taut, Shiny Skin Yes Skin Folds Yes Discoloration of Skin Yes Other Changes Yes Pain Scale Pain Scale (0-10) 0 Affected Extremities Areas Affected by Lymphedema/Edema Right Lower Extremity,Left Lower Extremity Lower Extremity Measurements Left MTP Measurement (cm) 24.2 Heel Measurement (cm) 35.8 10 cm Proximal to Lateral Malleoli 25.5 Measurement (cm) 20 cm Proximal to Lateral Malleoli 31.3 Measurement (cm) 30 cm Proximal to Lateral Malleoli 33.0 Measurement (cm) 40 cm Proximal to Lateral Malleoli 0 Measurement (cm) 50 cm Proximal to Lateral Malleoli 0 Measurement (cm) 60 cm Proximal to Lateral Malleoli 0 Measurement (cm) Lower Extremity Measurement Total (cm) 149.8 Right MTP Measurement (cm) 23.7 Heel Measurement (cm) 33.0 10 cm Proximal to Lateral Malleoli 25.4 Measurement (cm) 20 cm Proximal to Lateral Malleoli 34.0 Measurement (cm) 30 cm Proximal to Lateral Malleoli 33.9 Measurement (cm) 40 cm Proximal to Lateral Malleoli 0 Measurement (cm) 50 cm Proximal to Lateral Malleoli 0 Measurement (cm) 60 cm Proximal to Lateral Malleoli 0 Measurement (cm) Lower Extremity Measurement Total (cm) 150.0 Wound Problems/Impairments Impairments Problems/Impairmments Impaired Dressing,Increased Edema,Lymphedema Present, Impaired Self Care/Self Management Prognosis Rehab Potential Good Comment Skilled therapy services are indicated to reduce overall lymphedema in order to return pt to PLOF. Clinical Impression Consistent with Diagnosis Yes Short Term Goals Number of Weeks 2 Decrease Edema Yes: 2+ pitting edema to B lower legs Patient to Understand Lymphedema Yes Treatment and Exercises Decrease Girth Measurments by (cm) Yes: B LE total by 3 cm ea [employer] Goals Number of Weeks 4 Decrease Lymphedema Yes: 1+ pitting edema to B lower legs Patient to be Ind w/ HEP Yes Patient to Adhere Lymphedema Precautions Yes Decrease Girth Measurments by (cm) Yes: B LE total by 10 cm ea Outpatient Therapy Plan of Care Treatment Plan May Include Therapeutic Exercise Including Home Yes Exercise Program Manual Therapy Techniques Yes Neuromuscular Re-education Yes Therapeutic Activities to Return to Yes Previous Functional/Work Level ADL/Self Care Education Yes Orthotics/Bracing/Splinting Yes Manual Lymphatic Drainage Yes Eval/Re-Eval Yes Frequency Times per week 2 Duration Number of Weeks 3-4 Addendums Patient/Guardian verbally acknowledges Yes understanding of treatment program and consents to further treatment? Patient/Guardian verbally acknowledges Yes understanding of diagnosis, prognosis and goals for treatment? Eval Complexity PT Charges 21548 - High Complexity PHYSICIAN CERTIFICATION: I certify the specified therapy services for León Bedolla are required, authorized, and reviewed every 30 days.
== END 2024-10-11 23:59 | disposition home or self-care (01) ==
LOC: PT 15:00
PROVIDERS: PCP Internal Medicine Adolescent Medicine; Visit Provider Internal Medicine Adolescent Medicine
DX: I89.0 Lymphedema, not elsewhere classified (principal)
CPT/HCPCS: 97140; 97163

== ENCOUNTER 2025-01-02 08:40 | Outpatient (CLI) | payer MEDICARE, OTHER, SELFPAY ==
--- OUTSIDE RECORDS SUMMARY | 2024-09-30 17:30 | XMS_ITS ---
Author Organization [facility] Address [address] [place] [address] Care Team Providers Care Surgical Device Sales Representative Name Role Phone Omar Guzman Primary Care Provider Migration, Provider Unavailable Unavailable REAS[facility]ISIT [facility] Conversion Encounter Medications Medication SIG (Take, Route, [...] review and pick correct strength-formulat ion from [employer] options. If intended option is not shown, discontinue and re-order from Quick Search* Active Omeprazole 20 MG 1 cap(s) orally once a day Active Anoro Ellipta 62.5 MCG-25 MCG/INH USE 1 INHALATION DAILY *Please review and pick correct strength-formulat ion from [employer] options. If intended option is not shown, discontinue and re-order from Quick Search* Active traZODone HCl 50 MG as directed orally at bedtime; Duration: 90 days 09/20/2023 Active Losartan Potassium 100 MG 1 tab(s) orall y once a day; Duration: 90 days Active FiberCon 6 PER DAY *Please review and pick correct strength-formulat ion from [employer] options. If intended option is not shown, discontinue and re-order from Quick Search* Active Encounters Encounter Location Date Provider Diagnosis [facility] [address] [facility] [address] [facility] [address] [place] [address] 09/30/2024 Provider Migration Plan Of Treatment Medication Medication Name Sig Start Date Stop Date Notes hydroCHLOROthiazide 25 MG 1 tab(s) orall y once a day; Duration: 90 days Next Appt Details Provider Name:Omar Guzman, 01/31/2025 12:15:00 PM, [address], [address], [place], [address], Progress Notes * León BEDOLLA RDOB: [birth year] (79 yo M)Acc No.[id number]:09/30/2024 Patient: Gómez SUZETTE León R Provider: Siobhan hallman Migration :1945 A ge:79 Y S ex:Male Date:09/30/2024 Address:[place], [id number] Pcp:Omar Guzman Subjective: * Chief Complaints: * 1 . [facility]. * Medical History: * Medications: T aking Methocarbamol 500 MG Tablet 2 tab(s) orally every 8 hours PRN , Taking FiberCon CAP 6 PER DAY , Notes to Pharmacist: *Please review and pick correct strength-formulation from [employer] options. If intended option is not shown, discontinue and re-order from Quick Search*, Taking Aspirin 81 MG TABLET 1 TAB(S) ORALLY ONCE A DAY , Notes to Pharmacist: *Please review and pick correct strength-formulation from [employer] options. If intended option is not shown, [...] Electronic signature of Marilee loredo Migration on 01/02/2025 at 08:44 AM EDT Sign off status: Pending * Provider: Siobhan hallman Migration Date: 09/30/2024 Generated for Jeremías crowder/Argelia/Artemio on: 0 01/02/2025 08:44 AM EDT
--- OUTSIDE RECORDS SUMMARY | 2024-12-20 08:00 | XMS_ITS ---
Author Organization [facility] Address [address] [place] [address] Care Team Providers Care Aerodynamicist Name Role Phone Omar Guzman Primary Care Provider Allergies No Known Allergies Results Component Value Reference Range Notes LIPID PANEL, STANDARD (7600) Reviewed date:12/25/2024 11:32:17 AM Interpretation: Performing Lab:[facility] [address], [place] HyllXR[address] Tong Harper Notes/Report: CHOLESTEROL, TOTAL 143 <200 [...] equation in the estimation of LDL-C. Matt SILVERIA et al. ELVIS. 2013;310(19): 9086-8933 (http://education.Algebraix Data.MyFitnessPal/faq/TAW096) CHOL/HDLC RATIO 2.8 <5.0 (calc) NON HDL CHOLESTEROL 91 <130 mg/dL (calc) For patients with diabetes plus 1 major ASCVD risk factor, treating to a non-HDL-C goal of <100 mg/dL (LDL-C of <70 mg/dL) is considered a therapeutic option. COMPREHENSIVE METABOLIC PANE L (81703) Reviewed date:12/25/2024 11:32:17 AM Interpretation: Performing Lab:[facility] [address] [employer] [place] HartmanThflVM[address] Tong Harper Notes/Report: GLUCOSE 115 65-99 mg/dL [...] Reviewed date:12/25/2024 11:32:18 AM Interpretation: Performing Lab:[facility] T[address] [facility] Hospital[facility]uhgOX[address] Tong Harper Notes/Report: WHITE BLOOD CELL COUNT [...] MPV 11.4 7.5-12.5 fL ABSOLUTE NEUTROPHILS 5305 8678-7863 cells/uL ABSOLUTE LYMPHOCYTES 6645 852-1154 cells/uL ABSOLUTE MONOCYTES 608 200-950 cells/uL ABSOLUTE EOSINOPHILS 258 15-500 cells/uL ABSOLUTE BASOPHILS 53 0-200 cells/uL NEUTROPHILS 69.8 LYMPHOCYTES 18.1 MONOCYTES 8.0 EOSINOPHILS 3.4 BASOPHILS 0.7 HEMOGLOBIN A1c (496) Reviewed date:12/25/2024 11:32:18 AM Interpretation: Performing Lab:[facility], [facility] [address] [facility] Mj HartmanGpvvJN[address] Tong Harper Notes/Report: HEMOGLOBIN A1c 6.4 <5.7 [...] review and pick correct strength-formulat ion from [employer] options. If intended option is not shown, [...] mass (N28.89) Active confirmed Problem Liver cyst (24275082) Liver cyst (K76.89) Active confirmed Vital Signs Temperature 97.9 degrees Fahrenheit 12/21/19 25 Heart Rate 100 /min 12/20/2024 Blood pressure systolic 130 mm Hg 12/21/19 25 Blood pressure diastolic 80 mm Hg 025 Height 5 ft 8 in in 12/20/2024 Weight 169.2 lbs 12/20/2024 BMI 25.72 kg/m2 12/20/2024 Encounters Encounter Location Date Provider Diagnosis [facility] EDE [address] [facility] [address] [place] [address] 12/20/2024 Omar Guzman Chronic obstructive pulmonary disease, [...] *Please review and pick correct strength-formulation from [employer] options. If intended option is not shown, [...] 01/31/2025 12:15:00 PM, [address] [facility], [address], [place], [address], Progress Notes * León DICKERSON RDOB: [birth year] (79 yo M)Acc No.[id number]:12/20/2024 Progress Notes Patient: León CHACON Provider: Haseeb Guzman MD :1945 A ge:79 Y S ex:Male Date:12/20/2024 Address:[place], [id number] Subjective: * Chief Complaints: * 1 . [...] *Please review and pick correct strength-formulation from [employer] options. If intended option is not shown, discontinue and re-order from Quick Search*, Taking Aspirin 81 MG TABLET 1 TAB(S) ORALLY ONCE A DAY , Notes to Pharmacist: *Please review and pick correct strength-formulation from [employer] options. If intended option is not shown, discontinue and re-order from Quick Search*, Taking traZODone HCl 50 MG Tablet as directed orally at bedtime , Taking Losartan Potassium 100 MG Tablet 1 tab(s) orally once a day , Taking Anoro Ellipta 62.5 MCG-25 MCG/INH POWDER USE 1 INHALATION DAILY , Notes to Pharmacist: *Please review and pick correct strength-formulation from [employer] options. If intended option is not shown, [...] > Patient informed ?LAB: COMPREHENSIVE METABOLIC PANEL (59044) (Collection Date & Time - 12/20/2024 12:33 [...] > Patient informed ?LAB: CBC (INCLUDES DIFF/PLT) (5513) (Collection Date & Time - 12/20/2024 12:33 [...] - % * A BSOLUTE NEUTROPHILS 5305 5680-1584 - cells/uL * L YMPHOCYTES 18.1 - % * A BSOLUTE LYMPHOCYTES [phone] - cells/uL * M ONOCYTES 8.0 - [...] > Patient informed ?LAB: COMPREHENSIVE METABOLIC PANEL (49763) (Collection Date & Time - 12/20/2024 12:33 [...] > Patient informed ?LAB: CBC (INCLUDES DIFF/PLT) (3235) (Collection Date & Time - 12/20/2024 12:33 [...] - % * A BSOLUTE NEUTROPHILS 5305 3980-7832 - cells/uL * L YMPHOCYTES 18.1 - % * A BSOLUTE LYMPHOCYTES 7355 122-4623 - cells/uL * M ONOCYTES 8.0 - [...] EDT > No Precert needed for CPT 19680 * 5.?Right renal mass?LAB: LIPID PANEL, STANDARD [...] > Patient informed ?LAB: COMPREHENSIVE METABOLIC PANEL (48966) (Collection Date & Time - 12/20/2024 12:33 [...] > Patient informed ?LAB: CBC (INCLUDES DIFF/PLT) (7499) (Collection Date & Time - 12/20/2024 12:33 [...] - % * A BSOLUTE NEUTROPHILS 5305 7309-9181 - cells/uL * L YMPHOCYTES 18.1 - % * A BSOLUTE LYMPHOCYTES [phone] - cells/uL * M ONOCYTES 8.0 - [...] Without Contrast No precert needed for CPT 06410 Adrenal Mass Protocol * Notes: Reviewed nodules in the lungs and renal cyst with patient. Probably benign but needs imagingfollow-up. This is scheduled already personally??6.?Liver cyst?Imaging: Ultrasound : Liver* Reba Emmanuel 12/20/2024 04: 51:28 PM EDT > No Precert needed for CPT 57314 * Notes: Repeat imaging scheduled. I will review these personally and I will?? * Procedure Codes: 9 4664 DEMONSTRATE USE MDI/NEB, G2211 Complex e/m visit add on * Follow Up: p rn * * Sign off status: Completed true * Provider: Haseeb Guzman MD Date: 0 12/20/2024 Generated for Print[employer] lakesha/Argelia/eTransmitting on: 0 01/02/2025 08:44 AM EDT History and Physical Notes * [...]
--- OUTSIDE RECORDS SUMMARY | 2025-01-02 08:44 | XMS_ITS | Encounter Summary ---
Author Organization Healthcare Address [address] [id number] Care Team Providers Care Screening Tech Name Role Phone Omar Guzman MD Primary Care Provider [phone] Encounter Details Date Type Department Care Team (Late st Contact Info) Description 12/18/2023 Ophth Exam [facility] [address] [place] [address] Frandy Tom MD [address] [id number] Social History Tobacco Use Types Packs/Day Years Used Date Smoking Tobacco: Every Day Cigarettes 1.5 50.5 Started: 1973 Smokeless Tobacco: Never Alcohol Use Standard Drinks/Week Comments Yes 0 (1 standard drink = 0.6 oz pur e alcohol) Drinks occasionally Humiliation, Afraid, Rape, and Kick questionnair e Answer Date Recorded Within the last year, have y ou been afraid of your partner or ex-partner? No 12/17/2023 Within the last year, have y ou been humiliated or emotionally abused in other ways by your partner or ex-partner? No Within the last year, have y ou been kicked, hit, slapped, or otherwise physically hurt by your partner or ex-partner? No 12/17/2023 Within the last year, have y ou been raped or forced to have any kind of sexual activity by your partner or ex-partner? No 12/17/2023 Hunger Vital Sign Answer Date Recorded Within the past 12 months, y ou worried that your food would run out before you got the money to buy more. Never true 12/17/19 Within the past 12 months, t he food you bought just didn't last and you didn't have money to get more. Never true 12/17/2023 PRAPARE - Transportation Answer Date Re corded In the past 12 months, has l ack of transportation kept you from medical appointments or from getting medications? No 11/27 In the past 12 months, has l ack of transportation kept you from meetings, work, or from getting things needed for daily living? No 12/17/2023 Housing Stability Vital Sign Answer Rosas e Recorded In the last 12 months, was t here a time when you were not able to pay the mortgage or rent on time? No 12/17/2023 In the last 12 months, how many places have you lived? 1 12/17/2023 In the last 12 months, was t here a time when you did not have a steady place to sleep or slept in a mcc (including now)? No 12/17/2023 CAGE ASSESSMENT Answer Date Recorded Cage unable to access Not on file 12/16/2023 Cage max number of drinks Not on file 2023 Cage Beverages a week Not on file 12/16/2023 Have you ever felt you should CUT down on your d rinking? 0 12/16/2023 Have you been ANNOYED by people criticizing your drinking? 0 12/16/2023 Have you felt GUILTY about your drinking? 0 12/16/2023 Have you had a drink first t mason in the morning ([employer]) to steady your nerves or to get rid of a hangover? 0 12/16/2023 CAGE Questionnaire Score 0 024 Utilities Answer Date Recorded In the past 12 months has th e electric, gas, oil, or water company threatened to shut off services in your home? No 12/17/2023 Sex and Gender Information Value Date Recorded Sex Assigned at Male 12/16/2023 5:34 PM EDT Legal Sex Male 7:52 PM EDT Gender Identity Not on file Sexual Orientation Not on file documented as of this encounter Functional Status * Calculated C-SSRS Risk Score (Lifetime/Recent) Answer Date of Assessment Author No Risk Indicated 12/20/2023 7:00 PM EDT Joana Estrada RN * Question Answer Date of Assessment Author 1. Wish to be (Past 1 Month) No 12/20/2023 7:00 PM EDT Mil Bruce RN 2. Non-Specific Active Suicidal Thoughts (Past 1 Month) No 12/20/2023 7:00 PM EDT Mil Bruce RN 6. Suicidal Behavior (Lifetime) No 12/20/2023 7:00 PM EDT Mil Bruce RN documented as of this encounter Plan of Treatment Upcoming Encounters Date Type Department Care Team (Late st Contact Info) Description 02/19/2025 1:45 PM EDT Office Visit [facility] [address] [place] [address] Mallory Osorio S, OD [address] [place] [address] documented as of this encounter Visit Diagnoses Not on filedocumented in this encounter Additional Health Concerns Infection Onset Date Last Indicated Resolved Time Meningitis Rule-Out 12/18/2023 12/18/2023 12/18/19 8:04 PM EDT Assessment Noted Time A Body Mass Index follow-up plan has been documented for the patient 12/21/2023 5:32 PM EDT documented as of this encounter Care Teams Screening Tech Relationship Specialty Start Date End Date Omar Guzman MD [address] [place] [address] PCP - General Internal Medicine 12/17/23 documented as of this encounter
--- OUTSIDE RECORDS SUMMARY | 2025-01-02 08:44 | XMS_ITS | Patient Health Record ---
Author Organization [facility] Address [address] [place] [address] Care Team Providers Care Restaurant Hostess Name Role Phone Omar Guzman Primary Care Provider McShayna Martinez Unavailable [phone] Migration, Provider Unavailable Unavailable Allergies No Known Allergies Results Component Value Reference Range Notes HEMOGLOBIN A1c (496) Reviewed date:03/24/2024 08:49:57 AM Interpretation: Performing Lab:SHAKA, [employer] [id number] [facility] CenterObxlAG[address] Tong Harper Notes/Report: FASTING: NO FASTING:NO NON-FASTING; NON-FASTING; NON-FASTING; NON-FASTING HEMOGLOBIN A1c 6.2 <5.7 % of total Hgb For someone without known diabetes, a hemoglobin [...] A1c for diagnosis of diabetes for children. This test was performed on the Soledad chong c503 platform. Effective 09/01/23, a change in test platforms from the [employer] Program Support Assistant to the Soledad chong c503 may have shifted HbA1c results compared to historical results. Based on laboratory validation testing conducted at [employer], the Soledad platform relative to the Molina platform had an average increase in HbA1c value of < or = 0.3%. This difference is within accepted variability established by the National Glycohemoglobin Standardization Program. Note that not all individuals will have had a shift in their results and direct comparisons between historical and current results for testing conducted on different platforms is not recommended. HEMOGLOBIN A1c (496) Reviewed date:12/25/2024 11:32:18 AM Interpretation: Performing Lab:[facility]AKA [email or web address] [id number] [employer] [place] UnqtAI[address] Tong Harper Notes/Report: HEMOGLOBIN A1c 6.4 <5.7 [...] A1c for diagnosis of diabetes for children. CBC (INCLUDES DIFF/PLT) (639 9) Reviewed date:12/25/2024 11:32:18 AM Interpretation: Performing Lab:SHAKA [email or web address] [id number] [employer] [place] ConnectQuestCqfrUX[address] Tong Harper Notes/Report: WHITE BLOOD CELL COUNT [...] MPV 11.4 7.5-12.5 fL ABSOLUTE NEUTROPHILS 5305 7713-0858 cells/uL ABSOLUTE LYMPHOCYTES 2039 981-2601 cells/uL ABSOLUTE MONOCYTES 608 200-950 cells/uL ABSOLUTE EOSINOPHILS 258 15-500 cells/uL ABSOLUTE BASOPHILS 53 0-200 cells/uL NEUTROPHILS 69.8 LYMPHOCYTES 18.1 MONOCYTES 8.0 EOSINOPHILS 3.4 BASOPHILS 0.7 CBC (INCLUDES DIFF/PLT) (639 9) Reviewed date:03/24/2024 08:49:57 AM Interpretation: Performing Lab:[facility]AKA [employer] Campaigne1355 [employer], [facility] CenterJghzLM[address] Tong Harper Notes/Report: NON-FASTING; NON-FASTING; NON-FASTING; NON-FASTING FASTING:NO FASTING: NO WHITE BLOOD CELL COUNT 6.9 3.8-10.8 Thousand/ uL RED BLOOD CELL COUNT 4.88 4.20-5.80 Million/uL HEMOGLOBIN 15.3 13.2-17.1 g/dL HEMATOCRIT 46.5 38.5-50.0 % MCV 95.3 80.0-100.0 fL MCH 31.4 27.0-33.0 pg MCHC 32.9 32.0-36.0 g/dL RDW 12.9 11.0-15.0 % PLATELET COUNT 169 140-400 Thousand/uL MPV 11.6 7.5-12.5 fL ABSOLUTE NEUTROPHILS 4630 4240-3452 cells/uL ABSOLUTE LYMPHOCYTES 1314 930-3689 cells/uL ABSOLUTE MONOCYTES 642 200-950 cells/uL ABSOLUTE EOSINOPHILS 248 15-500 cells/uL ABSOLUTE BASOPHILS 41 0-200 cells/uL NEUTROPHILS 67.1 LYMPHOCYTES 19.4 MONOCYTES 9.3 EOSINOPHILS 3.6 BASOPHILS 0.6 COMPREHENSIVE [facility] PANE (17913) Reviewed date:03/24/2024 08:49:57 AM Interpretation: Performing Lab:[facility]AKA [email or web address] [id number] [employer], [employer] Do[employer] CampaignNgvzRM[address] Tong Harper Notes/Report: NON-FASTING; NON-FASTING; NON-FASTING; NON-FASTING FASTING:NO FASTING: NO GLUCOSE 77 65-139 mg/dL Non-fasting reference interval UREA NITROGEN (BUN) 15 7-25 mg/dL CREATININE 0.88 0.70-1.28 mg/dL EGFR 88 > OR = 60 mL/min/1.73m2 BUN/CREATININE RATIO SEE NOTE: 6-22 (calc) Not Reported: BUN and Creatinine are within reference range. SODIUM 145 135-146 mmol/L POTASSIUM 3.9 3.5-5.3 mmol/L CHLORIDE 104 98-110 mmol/L CARBON DIOXIDE 33 20-32 mmol/L CALCIUM 9.2 8.6-10.3 mg/dL PROTEIN, TOTAL 6.3 6.1-8.1 g/dL ALBUMIN 3.9 3.6-5.1 g/dL GLOBULIN 2.4 1.9-3.7 g/dL (calc) ALBUMIN/GLOBULIN RATIO 1.6 1.0-2.5 (calc) BILIRUBIN, TOTAL 0.6 0.2-1.2 mg/dL ALKALINE PHOSPHATASE 69 35-144 U/L AST 18 10-35 U/L ALT 11 9-46 U/L COMPREHENSIVE METABOLIC PANE L (80700) Reviewed date:12/25/2024 11:32:17 AM Interpretation: Performing Lab:CB, [facility] [id number] [facility] InstituteVchdWG[address] Tong Harper Notes/Report: GLUCOSE 115 65-99 mg/dL [...] 16 10-35 U/L ALT 12 9-46 U/L LIPID PANEL, STANDARD (7600) Reviewed date:12/25/2024 11:32:17 AM Interpretation: Performing Lab:SHAKA [email or web address] [id number] [employer]tel [facility], [facility] CenterNkzyAL[address] Tong Harper Notes/Report: CHOLESTEROL, TOTAL 143 <200 [...] equation in the estimation of LDL-C. Matt SS et al. ELVIS. 2013;310(19): 5199-4252 (http://education.jaja.tv.[employer]/faq/NJE636) CHOL/HDLC RATIO 2.8 <5.0 (calc) NON HDL CHOLESTEROL 91 <130 mg/dL (calc) For patients with diabetes plus 1 major ASCVD risk factor, treating to a non-HDL-C goal of <100 mg/dL (LDL-C of <70 mg/dL) is considered a therapeutic option. LIPID PANEL, STANDARD (7600) Reviewed date:03/24/2024 08:49:57 AM Interpretation: Performing Lab:SHAKA [employer] Rtya1523 [employer] [place], [facility] CenterNmcaUH[address] Tong Harper Notes/Report: NON-FASTING; NON-FASTING; NON-FASTING; NON-FASTING FASTING:NO FASTING: NO CHOLESTEROL, TOTAL 120 <200 mg/dL HDL CHOLESTEROL 52 > OR = 40 mg/dL TRIGLYCERIDES 139 <150 mg/dL LDL-CHOLESTEROL 46 Reference range: <100 Desirable range <100 mg/dL for primary prevention; <70 mg/dL for patients with CHD or diabetic patients with > or = 2 CHD risk factors. LDL-C is now calculated using the Matt-Millard calculation, which is a validated novel method providing better accuracy than the Friedewald equation in the estimation of LDL-C. Matt SS et al. ELVIS. 2013;310(19): 6262-8446 (http://education.jaja.tv.[employer]/faq/ADV962) CHOL/HDLC RATIO 2.3 <5.0 (calc) NON HDL CHOLESTEROL 68 <130 mg/dL (calc) For patients with diabetes plus 1 major ASCVD risk factor, treating to a non-HDL-C goal of <100 mg/dL (LDL-C of <70 mg/dL) is considered a therapeutic option. Doppler: Venous, L Lower Ext remity Reviewed date:03/29/2024 08:48:07 PM Interpretation: Performing Lab: Notes/Report: Microalbumin (In-House) Reviewed date:03/22/2024 05:04:36 PM Interpretation:Abnormal Performing Lab: Notes/Report: Abnormal ALB 150 CRE 200 A:C 30-300 HEMOGLOBIN A1c (496) Reviewed date:09/21/2024 04:36:53 PM Interpretation: Performing Lab:[facility]AKA [employer] Campaigne1355 [employer], [email or web address] [id number] Tong Harper Notes/Report: NON-FASTING; NON-FASTING; NON-FASTING; NON-FASTING HEMOGLOBIN A1c 6.3 <5.7 % of total Hgb For someone without known diabetes, a hemoglobin [...] A1c for diagnosis of diabetes for children. CBC (INCLUDES DIFF/PLT) (639 9) Reviewed date:09/21/2024 04:36:52 PM Interpretation: Performing Lab:SHAKA [email or web address] [id number] [employer] [facility], ConnectQuestClukKA[address] Tong Harper Notes/Report: NON-FASTING; NON-FASTING; NON-FASTING; NON-FASTING WHITE BLOOD CELL COUNT 8.0 3.8-10.8 Thousand/ uL RED BLOOD CELL COUNT 5.17 4.20-5.80 Million/uL HEMOGLOBIN 16.1 13.2-17.1 g/dL HEMATOCRIT 48.0 38.5-50.0 % MCV 92.8 80.0-100.0 fL MCH 31.1 27.0-33.0 pg MCHC 33.5 32.0-36.0 g/dL For adults, a slight decrease in the calculated MCHC value (in the range of 30 to 32 g/dL) is most likely not clinically significant; however, it should be interpreted with caution in correlation with other red cell parameters and the patient's clinical condition. RDW 12.5 11.0-15.0 % PLATELET COUNT 196 140-400 Thousand/uL MPV 11.7 7.5-12.5 fL ABSOLUTE NEUTROPHILS 5240 4435-1060 cells/uL ABSOLUTE LYMPHOCYTES 1974 513-2179 cells/uL ABSOLUTE MONOCYTES 672 200-950 cells/uL ABSOLUTE EOSINOPHILS 256 15-500 cells/uL ABSOLUTE BASOPHILS 56 0-200 cells/uL NEUTROPHILS 65.5 LYMPHOCYTES 22.2 MONOCYTES 8.4 EOSINOPHILS 3.2 BASOPHILS 0.7 COMPREHENSIVE METABOLIC PANE L (16923) Reviewed date:09/21/2024 04:36:52 PM Interpretation: Performing Lab:SHAKA, [facility] [address], [facility] InstituteMwwcIK[address] Tong Harper Notes/Report: NON-FASTING; NON-FASTING; NON-FASTING; NON-FASTING GLUCOSE 105 65-99 mg/dL Fasting reference interval For someone without known diabetes, a glucose value between 100 and 125 mg/dL is consistent with prediabetes and should be confirmed with a follow-up test. UREA NITROGEN (BUN) 12 7-25 mg/dL CREATININE 0.74 0.70-1.28 mg/dL EGFR 93 > OR = 60 mL/min/1.73m2 BUN/CREATININE RATIO SEE NOTE: 6-22 (calc) Not Reported: BUN and Creatinine are within reference range. SODIUM 142 135-146 mmol/L POTASSIUM 3.8 3.5-5.3 mmol/L CHLORIDE 97 98-110 mmol/L CARBON DIOXIDE 36 20-32 mmol/L CALCIUM 10.0 8.6-10.3 mg/dL PROTEIN, TOTAL 6.7 6.1-8.1 g/dL ALBUMIN 4.3 3.6-5.1 g/dL GLOBULIN 2.4 1.9-3.7 g/dL (calc) ALBUMIN/GLOBULIN RATIO 1.8 1.0-2.5 (calc) BILIRUBIN, TOTAL 0.9 0.2-1.2 mg/dL ALKALINE PHOSPHATASE 61 35-144 U/L AST 17 10-35 U/L ALT 11 9-46 U/L LIPID PANEL, STANDARD (7600) Reviewed date:09/21/2024 04:36:52 PM Interpretation: Performing Lab:CB, [facility]-M[address], [place] TerryCcqaGW[address] Tong Radha Harper Notes/Report: NON-FASTING; NON-FASTING; NON-FASTING; NON-FASTING CHOLESTEROL, TOTAL 121 <200 mg/dL HDL CHOLESTEROL 49 > OR = 40 mg/dL TRIGLYCERIDES 147 <150 mg/dL LDL-CHOLESTEROL 49 Reference range: <100 Desirable range <100 mg/dL for primary prevention; <70 mg/dL for patients with CHD or diabetic patients with > or = 2 CHD risk factors. LDL-C is now calculated using the Ismael calculation, which is a validated novel method providing better accuracy than the Friedewald equation in the estimation of LDL-C. Matt SILVEIRA et al. ELVIS. 2013;310(19): 6374-5347 (http://education.jaja.tv.[employer] Media/faq/YYX448) CHOL/HDLC RATIO 2.5 <5.0 (calc) NON HDL CHOLESTEROL 72 <130 mg/dL (calc) For patients with diabetes plus 1 major ASCVD risk factor, treating to a non-HDL-C goal of <100 mg/dL (LDL-C of <70 mg/dL) is considered a therapeutic option. Reason For Referral Reason CT Chest Referral Organization [facility] JERRY MERA Referring Provider First Name Omar Referring Provider Last Name Megan Referring Provider Speciality Internal M edicine Referred Organization [facility] Referred Address [address] [place] [phone], Referred Provider Specialty Diagnostic R adiology General Notes Reba [place] 2023 09:19:15 AM >Patient no showed for his CT Referral Priority Routine Referral Appointment Date 01/25/2024 Reason Order faxed to katie valero scheduling for venous Doppler on Wednesday Diagnosis 1 Leg edema, left (R60 .0) Referral Organization [facility] Referring Provider First Name Omar Referring Provider Last Name Megan Referring Provider Speciality Internal M edicine Referral Priority Urgent Referral Appointment Date 03/29/2024 Medications Medication SIG (Take, Route, Frequency, Duration) Notes Start Date End Date Status Trelegy Ellipta 100-62.5-25 MCG/ACT 1 puff Inhalation Once a day; Duration: 90 days 12/20/2024 Active Methocarbamol 500 MG 2 tab(s) orally every 8 hours PRN Active hydroCHLOROthiazide 25 MG 1 tab(s) orall y once a day; Duration: 90 days Active Omeprazole 20 mg TAKE 1 CAPSULE DAILY Active Atorvastatin Calcium 40 MG TAKE 1 TABLET DAILY; Duration: 90 days Active metFORMIN HCl 500 MG 1 tab(s) orally daily; Duration: 90 days Active Metoprolol Succinate ER 25 MG TAKE 1 TABLET DAILY Active FiberCon 6 PER DAY *Please review and pick correct strength-formulat ion from [employer] options. If intended option is not shown, discontinue and re-order from Quick Search* Active Aspirin 81 MG 1 TAB(S) ORALLY ONCE A DAY *Please review and pick correct strength-formulat ion from [employer] options. If intended option is not shown, discontinue and re-order from Quick Search* Active traZODone HCl 50 MG as directed orally at bedtime; Duration: 90 days 09/20/2023 Active Losartan Potassium 100 MG 1 tab(s) orall y once a day; Duration: 90 days Active Immunizations Vaccine Route Administration Date Status Comme nts Covid Moderna Unknown 07/03/2020 Administered Covid Moderna Unknown 08/05/2020 Administered Fluzone High Dose IM Intramuscular 03/31/2019 Administered Fluzone High Dose IM Intramuscular 03/07/2020 Administered Fluzone High Dose IM Intramuscular 03/17/2021 Administered Fluzone High Dose IM Intramuscular 03/18/2022 Administered Influenza (Fluzone)--Medicare only IM Intramuscular 05/03/2015 Administered Influenza (Fluzone)--Medicare only IM Intramuscular 05/25/2016 Administered Influenza (Fluzone)--Medicare only IM Intramuscular 04/26/2017 Administered Influenza (Fluzone)--Medicare only IM Intramuscular 05/02/2018 Administered Pneumovax 23 IM Intramuscular 05/02/2018 Administered Prevnar PCV-13 (Pneumococcal conjugate 13) IM Intramuscular 04/26/2017 Administered SHINGRIX Unknown 05/22/2019 Administered SHINGRIX Unknown 08/07/2019 Administered Social History Tobacco Use: Social History Observation [...] Problem Status W/U Status Risk Notes Problem Peripheral circulatory disorder associated with diabetes mellitus (233561294) Type 2 diabetes mellitus with other circulatory complications (E11.59) Active confirmed Problem Type 2 diabetes mellitus with other specified complication (E11.69) Active confirmed Problem Mixed hyperlipidemia (094299120) Mixed hyperlipidemia (E78.2) Active confirmed Problem Primary insomnia (5498303) Primary insomnia (F51.01) Active confirmed Problem Atherosclerotic heart disease of [place] coronary artery without angina pectoris (607007082500852) Atherosclerotic heart disease of [place] coronary artery without angina pectoris (I25.10) Active confirmed Problem Panlobular emphysema (3776080) Panlobular emphysema (J43.1) Active confirmed Problem Sebaceous cyst (425759973) Sebaceous cyst (L72.3) Active confirmed Problem Nicotine dependence (90822582) Personal history of nicotine dependence (Z87.891) Active confirmed Problem Type II diabetes mellitus without complication (602338259) Diabetes mellitus type 2, noninsulin dependent (E11.9) Active confirmed Problem Essential hypertension (49670382) Essential hypertension (I10) Active confirmed Problem Hyperlipidemia (41211190) Hyperlipemia, idiopathic familial (E78.5) Active confirmed Problem Tubular adenoma of colon (312366626) Tubular adenoma of colon (D12.6) Active confirmed Problem Lymphedema (46140665) Lymphedema (I89.0) Active confirmed Problem Skin lesion (43072990) Skin lesion (L98.9) Active confirmed Problem COPD - Chronic obstructive pulmonary disease (60820109) Chronic obstructive pulmonary disease, unspecified COPD type (J44.9) Active confirmed Problem Solitary nodule of lung (961476802) Lung nodule (R91.1) Active confirmed Problem Liver cyst (72980358) Liver cyst (K76.89) Active confirmed Problem Adult health examination (753150679) Healthcare maintenance (Z00.00) Active confirmed Problem Disorder of kidney and/or ureter (740881697) Right renal mass (N28.89) Active confirmed Problem Multiple pulmonary nodules (255173276) Multiple pulmonary nodules (R91.8) Active confirmed Problem Skin cancer (519110467) Skin cancer (C44.90) Active confirmed Problem Meralgia paresthetica (08476946) Meralgia paresthetica of right side (G57.11) Active confirmed Problem Radiology result abnormal (349756607) Abnormal chest CT (R93.89) Active confirmed Vital Signs Heart Rate 100 /min 12/20/2024 Temperature 97.9 degrees Fahrenheit 12/20/2024 Blood pressure diastolic 80 mm Hg 12/20/2024 Height 5 ft 8 in in 12/20/2024 Blood pressure systolic 130 mm Hg 12/20/2024 Weight 169.2 lbs 12/20/2024 BMI 25.72 kg/m2 12/20/2024 Encounters Encounter Location Date Provider Diagnosis [facility] [address] [place] [facility] [address] [place] [address] 09/30/2024 Provider Migration [facility] [address] [place] [address] [place] [address] 02/08/2024 Shayna McNees Thoracic myofascial strain, sequela S29.019S and Acute myofascial strain of lumbar region, sequela S39.012S [facility] [address] [place] [address] [place], [place] [address] 03/22/2024 Omar Guzmna Type 2 diabetes mellitus with other circulatory complications E11.59 ; Atherosclerotic heart disease of [place]k coronary artery without angina pectoris I25.10 ; Mixed hyperlipidemia E78.2 ; Chronic obstructive pulmonary disease, unspecified COPD type J44.9 and Essential hypertension I10 [facility] [address] [place] [address] [place] [address] 03/25/2024 Omar Guzman Leg edema, left R60. 0 and Cellulitis of leg, left L03.116 [facility] [address] [place] [address] [place], [place] [address] 09/20/2024 Omar Guzman Hyperlipemia, idiopathic familial E78.5 ; Chronic obstructive pulmonary disease, unspecified COPD type J44.9 ; Personal history of nicotine dependence Z87.891 ; Essential hypertension I10 ; Type 2 diabetes mellitus with other specified complication E11.69 ; Atherosclerotic heart disease of y[place] coronary artery without angina pectoris I25.10 ; Lymphedema I89.0 ; Multiple pulmonary nodules R91.8 and Routine medical exam Z00.00 [facility] [address] [place], [place] [address] 12/20/2024 Omar Guzman Chronic obstructive pulmonary disease, unspecified COPD type J44.9 ; Hyperlipemia, idiopathic familial E78.5 ; Essential hypertension I10 ; Diabetes mellitus type 2, noninsulin dependent E11.9 ; Multiple pulmonary nodules R91.8 ; Right renal mass N28.89 and Liver cyst K76.89 [facility] [address] [place] [address] 01/11/2024 Omar Guzman Lung nodule R91.[address] lung screening R91.8 [facility] [address] [place] [address] 01/27/2024 Omar Guzman [facility] [address] [facility] [address] [place] [address] 03/27/2024 Omar Guzman [facility] [address] [place] [address] 09/20/2024 Omar Guzman Lymphedema I89.0 [facility] [address] [address] 12/26/2024 Omar Guzman Chronic obstructive pulmonary disease, unspecified COPD type J44.9 [facility] [address] [address] 01/01/2025 Omar Guzman Chronic obstructive pulmonary disease, unspecified COPD type J44.9 Assessments Encounter Date Diagnosis (ICD Code) Assessment Notes Treatment Notes Treatment Clinical Notes Section Notes 01/11/2024 Lung nodule (ICD-10 - R91.1) 02/08/2024 Acute myofascial strain of lumbar region, sequela (ICD-10 - S39.012S) 02/08/2024 Thoracic myofascial strain, sequela (ICD-10 - S29.019S) ED records reviewed. Needs to repeat imaging in 6 months-liver US and CT renal mass protocol, CTA in 1 year. Rest, warm compresses, prednisone as above. Samples of Voltaren gel provided. Increase oral fluid intake, diabetic diet. If no improvement will consider PT referral 03/22/2024 Type 2 diabetes mellitus with other circulatory complications (ICD-10 - E11.59) Overall doing well... check labs... close f/u. 03/22/2024 Atherosclerotic heart disease of yurok coronary artery without angina pectoris (ICD-10 - I25.10) 03/25/2024 Leg edema, left (ICD-10 - R60.0) Low suspicion for DVT but given patient's clinical history, smoking history will check on Wednesday. Elevation, warm compresses. Return precautions to come to the ER if issues with breathing. Patient remains on aspirin. Treat for cellulitis as noted below which seems to be the cause of the swelling 03/25/2024 Cellulitis of leg, left (ICD-10 - L03.116) 09/20/2024 Hyperlipemia, idiopathic familial (ICD-10 - E78.5) Check lipids. On high intensity statin given his atherosclerotic heart disease. All reviewed to make sure were at goal therapy 09/20/2024 Chronic obstructive pulmonary disease, unspecified COPD type (ICD-10 - J44.9) On inhalers. Stable. Lungs sound pretty good today. Functional status is at baseline 09/20/2024 Lymphedema (ICD-10 - I89.0) 12/20/2024 Hyperlipemia, idiopathic familial (ICD-10 - E78.5) 12/20/2024 Chronic obstructive pulmonary disease, unspecified COPD type (ICD-10 - J44.9) Patient continues to have some wheezing. Do not feel that his shortness of air is well-controlled. Switch to triple inhaler. Demonstrated the patient. 12/26/2024 Chronic obstructive pulmonary disease, unspecified COPD type (ICD-10 - J44.9) 01/01/2025 Chronic obstructive pulmonary disease, unspecified COPD type (ICD-10 - J44.9) 12/20/2024 Essential hypertension (ICD-10 - I10) 09/20/2024 Personal history of nicotine dependence (ICD-10 - Z87.891) Discussed smoking cessation issues. Poor prognosis for improvement patient is in the precontemplative stage. 's once again spent about 5 minutes discussing smoking cessation options 03/22/2024 Mixed hyperlipidemia (ICD-10 - E78.2) 01/11/[address] lung screening (ICD-10 - R91.8) 03/22/2024 Chronic obstructive pulmonary disease, unspecified COPD type (ICD-10 - J44.9) 09/20/2024 Essential hypertension (ICD-10 - I10) Good blood pressure control, no changes 12/20/2024 Diabetes mellitus type 2, noninsulin dependent (ICD-10 - E11.9) Check labs to monitor conditions. I will review these personally 12/20/2024 Multiple pulmonary nodules (ICD-10 - R91.8) 03/22/2024 Essential hypertension (ICD-10 - I10) Patient's blood pressure is well-controlled. Conditions above seem to be well-managed. Continues to smoke which he is very frustrated with but does not think he can quit. No changes in plan, we will see flu shot next month. We will send RSV vaccination at the pharmacy and he will think about this 09/20/2024 Type 2 diabetes mellitus with other specified complication (ICD-10 - E11.69) A1c 6 months ago 6.2. Will reevaluate, currently on appropriate medication 09/20/2024 Atherosclerotic heart disease of yurok coronary artery without angina pectoris (ICD-10 - I25.10) On goal-directed therapy 12/20/2024 Right renal mass (ICD-10 - N28.89) Reviewed nodules in the lungs and renal cyst with patient. Probably benign but needs imaging follow-up. This is scheduled already personally 12/20/2024 Liver cyst (ICD-10 - K76.89) Repeat imaging scheduled. I will review these personally and I will 09/20/2024 Lymphedema (ICD-10 - I89.0) Will refer to lymphedema clinic. Does not appear to be fluid overloaded, will refer to [facility] lymphedema 09/20/2024 Multiple pulmonary nodules (ICD-10 - R91.8) Follows with pulmonary, nodes been stable 09/20/2024 Routine medical exam (ICD-10 - Z00.00) Aged out of cancer screening. Up-to-date with vaccines, labs today. Functional status excellent. Depression screening negative. Children are healthcare surrogate. Plan Of Treatment Pending Test Test Name Order Date CT Scan : Chest, Without Contrast 06/25/ 2025 Ultrasound : Liver 12/20/2024 CT Scan : Chest with Contrast 08/11/2019 H-LIPID PANEL 06/11/2014 H-PSA SCREEN 08/20/2014 CT Scan : Abdomen Adrenal Protocol 12/20 Physical Therapy : Lymphedema 09/20/2024 M-Complete Blood Count Auto Diff 020 M-Complete Blood Count Auto Diff 021 M-Complete Blood Count Auto Diff 018 M-Comprehensive Metabolic Panel 04/12/20 18 M-Comprehensive Metabolic Panel 03/12/20 22 M-Comprehensive Metabolic Panel 02/19/20 21 M-Comprehensive Metabolic Panel 07/25/19 20 M-Hemoglobin A1C 04/12/2018 M-Hemoglobin A1C 03/12/2022 M-Hemoglobin A1C 07/25/2019 M-Hemoglobin A1C 02/18/2021 M-Lipid Panel 02/18/2021 M-Lipid Panel 03/12/2022 M-Lipid Panel 07/25/2019 M-Lipid Panel 04/12/2018 CT CHEST WO CONTRAST 01/11/2024 Future Test Test Name Order Date H-CMP 01/17/2018 H-LIPID PANEL 01/17/2018 Next Appt Details Provider Name:Omar Guzman, 01/31/2025 12:15:00 PM, [address] [facility], [address], [place], [address], Insurance Providers Payer Name Payer Address Payer Phone Subscriber Number Group Number Insured Name Patient Relationship to Insured Coverage Start Date Coverage End Date [place] [address] [place] [address] [id number] León Bedolla Self - patient is the insured [facility] CLAIMS [address] [place] [address] [id number] León Bedolla Self - patient is the insured [employer] [address] [place] [address] [address] [place] [address] [phone] ACL León Bedolla Self - patient is the insured Medical (General) History Medical History History ICD Code Enlarged Prostate GERD hypertension hyperlipidemia atherosclerosis COPD colonoscopy September 2016 with tubular marilee richard low-dose lung cancer screeni ng September 2016 - repeated 04/15 -scan with contrast November/2019 shows stable nodules - LDCT 12/16 with no changes.. repeat 10/18 also with no changes from baseline - scan 10/19 with new opacities. 3 mo f/u rec. type 2 diabetes infrarenal AAA 3.3 cm 01/2024 Surgical History Surgery Date(Month/Year) mastoidectomy left ear prostate bx colonoscopy normal removal of nodes from prostate 03/2018 cataract removal-bilateral eyes 2023 Hospitalization History Reason Date(Month/Year) [place]- Flu A , Bronchitis and Dehyd ration 06/26/2017 fever r/t surgies
--- OUTSIDE RECORDS SUMMARY | 2025-01-02 08:44 | XMS_ITS | Clinical Summary ---
Author Organization Healthcare Address [address] [place] [address] Care Team Providers Care Script Reader Name Role Phone Omar Guzman MD Primary Care Provider [phone] Allergies No known active allergies Medications atorvastatin (Lipitor) 40 MG tablet Take 1 tablet (40 mg) by mouth 1 (one) time each day. Active losartan (Cozaar) 100 MG tablet Take 1 tablet (100 mg) by mouth 1 (one) time each day. Active metFORMIN (Glucophage) 500 MG tablet Take 1 tablet (500 mg) by mouth 1 (one) time each day with breakfast. Active metoprolol succinate XL (Toprol-XL) 25 MG 24 hr tablet Take 1 tablet (25 mg) by mouth 1 (one) time each day. Do not crush or chew. Active omeprazole (PriLOSEC) [address] capsule Take 1 capsule (20 mg) by mouth 1 (one) time each day. Do not crush or chew. Active traZODone (Desyrel) 50 MG tablet Take 1 tablet (50 mg) by mouth every night. Active Umeclidinium-Anshul nterol (Anoro Ellipta) 62.5-25 MCG/ACT aerosol powder aerosol powder Inhale 1 Inhalation 1 (one) time each day. Active aspirin 81 MG EC tablet Take 1 tablet (81 mg) by mouth 1 (one) time each day. Active Calcium Polycarbophil (FIBERCON PO) Take 3 capsules by mouth 2 (two) times a day. Active hydroCHLOROthiazi de (HYDRODiuril) 25 MG tablet 4 Active Active Problems Problem Noted Date Diagnosed Date Abnormal chest CT 02/14/2024 Atherosclerotic heart diseas e of [place] coronary artery without angina pectoris 02/14/2024 Bladder outlet obstruction 02/14/2024 Cellulitis 02/14/2024 Diabetes mellitus type 2, noninsulin dependent 0 02/14/2024 Encounter for screening labo ratory testing for COVID-19 virus 02/14/2024 Meralgia paresthetica of right side 02/14/2024 Panlobular emphysema 02/14/2024 Sebaceous cyst 02/14/2024 Sinusitis 02/14/2024 Skin cancer 02/14/2024 Skin lesion 02/14/2024 Tubular adenoma of colon 02/14/2024 UTI (urinary tract infection) 02/14/2024 Viral syndrome 02/14/2024 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 Age-related nuclear cataract, bilateral 12/17/19 Benign essential hypertension 12/17/2023 Hearing loss 12/17/2023 Hyperlipidemia 12/17/2023 Gastroesophageal reflux disease 12/17/2023 IIH (idiopathic intracranial hypertension) 12/15 Aneurysm of the ascending aorta, without rupture 12/16/2023 Chronic obstructive pulmonary disease 12/16/2023 Hypomagnesemia 12/16/2023 Infrarenal abdominal aortic aneurysm, without ru pture 12/16/2023 Lung nodule 12/16/2023 Nicotine dependence, cigarettes, uncomplicated 0 12/16/2023 Papilledema associated with increased intracrani al pressure 12/16/2023 Insomnia, unspecified 06/28/2000 Immunizations Immunization Administration Dates Next Due Influenza, Unspecified 03/19/2015 Influenza, high-dose, quadrivalent 03/18,03/17/2021,03/07/2020, 019 Influenza, injectable, quadrivalent 05/02/2018,1 Pneumococcal Conjugate PCV 13 04/26/2017, 015 Pneumococcal Polysaccharide PPV23 05/02/2018 Td (adult), unspecified 02/05/2012 Zoster, Recombinant 08/07/2019,05/22/2019 Social History Tobacco Use Types Packs/Day Years Used Date Smoking Tobacco: Every Day Cigarettes 1.5 50.5 Started: 1973 Smokeless Tobacco: Never Tobacco Cessation:Ready to Q uit: Not Asked; Counseling Given: Not Answered Alcohol Use Standard Drinks/Week Comments Yes 0 [...] money to buy more. Never true 12/17/19 24 Within the past 12 months, t he [...] place to sleep or slept in a fpc (including now)? 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 0 12/16/2023 CAGE Questionnaire Score 0 024 Utilities Answer Date Recorded In the past 12 months has th e [employer], gas, oil, or water [employer] threatened to shut off services in your home? No 12/17/2023 Sex and Gender Information Value Date Recorded Sex Assigned at Male 12/16/2023 5:34 PM EDT Legal Sex Male 7:52 PM EDT Gender Identity Not on file Sexual Orientation Not on file Last Filed Vital Signs Vital Sign Reading Time Taken Comments Blood Pressure 85/53 12/21/2023 11:52 AM EDT Pulse 82 12/21/2023 11:52 AM EDT Temperature 36.6 C (97.8 F) 12/21/2023 11:52 AM EDT Respiratory Rate 16 12/21/2023 7:43 AM EDT Oxygen Saturation 96% 12/21/2023 11:52 AM EDT Inhaled Oxygen Concentration - - Weight 76.7 kg (169 lb) 12/18/2023 11:03 PM EDT Height 172.7 cm (5' 7.99 ) 12/18/2023 11:03 PM E DT Body Mass Index 25.7 12/18/2023 11:03 PM EDT Plan of Treatment Upcoming Encounters Date Type Department Care Team (Late st Contact Info) Description 02/19/2025 1:45 PM EDT Office Visit [facility] [address] [place] [address] Mallory Osorio S, OD [address] [address] Health Maintenance Due Date Last Done Comments [facility]-Depression Screening 1945 [facility]-Diabetes: Hemoglobin A1C 1945 [facility]-Medicare Annual Wellness (AWV) 1945 [facility]-Infant/Child/Adol SDOH Screenings 1945 Diabetes: Dental Exam 01/30/1956 [facility]- SDOH Screenings 01/30/1964 [facility]-Adult SDOH Screenings 01/30/1964 [facility]-DTaP,Tdap,and Td Vaccines (1 - Tdap) 02/06/2012 02/05/2012 [facility]-RSV Vaccine: 60+ Years or (1 - 1-dose 75+ series) 2021 [id number] Vaccine (4 - 2023- season) 2024 04/02/2021, 08/05/2020, 07/03/2020 [facility]-Influenza Vaccine (#1) 02/26/202503/18, 03/17/2021, 03/07/2020, Additional history exists [facility]-Pneumococcal Vaccine: 50+ Years Completed 05/02/2018, 04/26/2017, 03/19/2015 [facility]-Zoster Vaccines Completed 08/07/2019, 9 [facility]-Hepatitis C Screening Completed 12/16/2023 [facility]-Lung Cancer Screening Discontinued 12/19/2023 [facility]-Obesity Intervention Completed 024, 12/31/2023, 12/28/2023, Additional history exists HPV Vaccines Aged Out No longer eligi ble based on patient's age to complete this topic [facility]-HIB Vaccines Aged Out No longer e ligible based on patient's age to complete this topic [facility]-Hepatitis A Vaccines Aged Out No longer eligible based on patient's age to complete this topic UK[facility]-IPV Vaccines Aged Out No longer e ligible based on patient's age to complete this topic [facility]-Rotavirus Vaccines Aged Out No lo nger eligible based on patient's age to complete this topic Procedures Procedure Name Priority Date/Time Associated Diagnosis Comments CT CHEST WO IV CONTRAST Routine 12/19/2023 12:46 AM EDT HEPATITIS C ANTIBODY - ED W/REFLEX TO HCV QUANT PCR STAT 12/16/2023 5:18 PM EDT from Last 3 Months or Most Recently Relevant to Health Maintenance Results * CT Chest wo IV Contrast (12/19/2023 12:46 AM EDT) Anatomical Region Laterality Modality Chest Computed Tomogra phy Impressions 12/19/2023 7:55 AM EDT Right lower pulmonary lobe 11 mm spiculated nodule with adjacent air cysts. Follow-up CT chest with contrast is recommended in 3 months; consider PET CT and/or tissue sampling. Emphysema and bilateral lower lobe bronchial wall thickening, consistent with COPD. Incidentally noted small frothy dependent opacities in the right mainstem bronchus; favor mucous, less likely small aspiration. No convincing evidence of chronic aspiration Dilated ascending thoracic aorta, 42 mm. CRITICAL RESULT: No. COMMUNICATION: These findings were discussed with Maynor Hull M.D. on 12/19/2023 7:54 AM by Shahrzad Heredia MD via [employer] secure chat. Drafted by Shahrzad Heredia MD on 12/19/2023 7:39 AM Final report signed by Shahrzad Heredia MD on 12/19/2023 7:55 AM Narrative 12/19/2023 7:55 AM EDT CLINICAL INDICATION: workup for other causes of optic disc edema TECHNIQUE: Multiple CT helical images were obtained from thoracic inlet through upper abdomen without administration of IV contrast. Total DLP (Dose-Length Product): 490.38 mGy.cm. Please note: The reported value represents the total of one or more individual components during the CT acquisition on this date and at this time, and as such, the same value may appear in more than one CT report depending on the interpreting/reporting physicians. COMPARISON: None. FINDINGS: Mediastinum and Pleura: No mediastinal or hilar adenopathy. Calcified mediastinal and left hilar lymph nodes. No pleural or pericardial effusion. Large coronary artery calcifications. Thoracic aorta is tortuous in course. Ascending thoracic aorta is dilated up to approximately 42 mm in caliber as can best be measured in this noncontrast exam. Lungs: Centrilobular emphysema. Bilateral lower lobe bronchial wall thickening. Right lower lobe subpleural spiculated nodule versus cluster of nodules with adjacent hemorrhagic cyst, 11 mm in maximum diameter series 3, image 80). Small nonsuspicious subpleural right middle lobe (3:59) and left upper lobe (3:55) nodules, the latter of which is slightly larger at 4 mm in maximum dimension. Small frothy dependent opacities in the right mainstem bronchus; otherwise, central airways are clear. Left lung calcified granulomas. Upper Abdomen: Please see separate report for findings of the concurrently performed abdominal CT. Musculoskeletal and body wall: No suspicious lytic or sclerotic lesion. Degenerative changes in the spine. No axillary lymphadenopathy. Procedure Note Shahrzad Heredia MD - 12/19/2023 CLINICAL INDICATION: workup for other causes of optic disc edema TECHNIQUE: Multiple CT helical images were obtained from thoracic inlet through upperabdomen without administration of IV contrast. Total DLP (Dose-Length Product): 490.38 mGy.cm. Please note: The reportedvalue represents the total of one or more individual components during theCT acquisition on this date and at this time, and as such, the same valuemay appear in more than one CT report depending on theinterpreting/reporting physicians. COMPARISON: None. FINDINGS: Mediastinum and Pleura: No mediastinal or hilar adenopathy. Calcifiedmediastinal and left hilar lymph nodes. No pleural or pericardialeffusion. Large coronary artery calcifications. Thoracic aorta is tortuousin course. Ascending thoracic aorta is dilated up to approximately 42 mmin caliber as can best be measured in this noncontrast exam. Lungs: Centrilobular emphysema. Bilateral lower lobe bronchial wallthickening. Right lower lobe subpleural spiculated nodule versus clusterof nodules with adjacent hemorrhagic cyst, 11 mm in maximum diameterseries 3, image 80). Small nonsuspicious subpleural right middle lobe(3:59) and left upper lobe (3:55) nodules, the latter of which is slightlylarger at 4 mm in maximum dimension. Small frothy dependent opacities inthe right mainstem bronchus; otherwise, central airways are clear. Leftlung calcified granulomas. Upper Abdomen: Please see separate report for findings of the concurrentlyperformed abdominal CT. Musculoskeletal and body wall: No suspicious lytic or sclerotic lesion.Degenerative changes in the spine. No axillary lymphadenopathy. IMPRESSION: Right lower pulmonary lobe 11 mm spiculated nodule with adjacent aircysts. Follow-up CT chest with contrast is recommended in 3 months;consider PET CT and/or tissue sampling. Emphysema and bilateral lower lobe bronchial wall thickening, consistentwith COPD. Incidentally noted small frothy dependent opacities in the right mainstembronchus; favor mucous, less likely small aspiration. No convincingevidence of chronic aspiration Dilated ascending thoracic aorta, 42 mm. CRITICAL RESULT: No. COMMUNICATION: These findings were discussed with Maynor Hull M.D. on 47:54 AM by Shahrzad Heredia MD via [employer] secure chat. Drafted by Shahrzad Heredia MD on 12/19/2023 7:39 AM Final report signed by Shahrzad Heredia MD on 12/19/2023 7:55 AM us Lenore Ndiaye MD IMG CT PROCEDURES Final Resu lt * Hepatitis C Antibody - ED (12/16/2023 5:18 PM EDT) Hepatitis C Antibody Negative Negative 12/16/2023 6:11 PM EDT [facility] Blood Venous blood specimen / Unknown Venipuncture / Unknown 12/16/2023 5:18 PM EDT 12/16/2023 5:29 PM EDT Collin Carroll MD LAB BLOOD ORDERABLES Final Resu lt [facility] [address] [place] [phone] from Last 3 Months or Most Recently Relevant to Health Maintenance Insurance MEDICARE [facility] Advance Directives * Full Code (Latest Code Status on File) Date Activated Date Inactivated Comments 12/16/2023 10:49 PM 12/21/2023 8:13 PM Question Answer Comments Patient has decision-making capacity? Yes Care Teams Script Reader Relationship Specialty Start Date End Date Omar Guzman MD [address] [place] [id number] PCP - General Internal Medicine 12/17/23
--- NOTE | 2025-01-02 08:45 | CT_ITS ---
FINAL REPORT TECHNIQUE: Pre- and postcontrast images of the abdomen were performed by computed tomography. CLINICAL HISTORY: ADRENAL PROTOCOL/ RT RENAL MASS FINDINGS: There is scarring of the lung bases. A calcified focus is seen in the medial right hepatic lobe measuring 2 cm. This is best identified on image 35 of series 3. Small gallstones/sludge are seen in the gallbladder. There is a small periampullary duodenal diverticulum. Adrenal glands are normal. Spleen and pancreas are unremarkable. A partially calcified, exophytic mass is present in the lateral left kidney measuring 2.3 x 1.6 cm with small internal calcifications. Postcontrast imaging demonstrates no definite abnormal enhancement. There is a smaller, similar appearing focus in the posterior left kidney. Mural thrombus is seen within the right lateral abdominal aorta.Aorta measures up to 3.4 cm. IMPRESSION: Gallstones/sludge. Complex, partially calcified mass in the periphery of the left kidney measuring 2.3 x 1.6 cm. Consider follow-up exam in 1 year to assess stability. Reviewed, Interpreted and Dictated by Frank Young MD Transcribed by Keesha Siegel Authenticated and [facility]
[2025-01-02] MEDS: SODIUM CHLORIDE 0.9% 10ML SYR (RAD ONLY) 10 ML IV (09:31)
[2025-01-02] MEDS: IOPAMIDOL-370 (76%);100ML BOTTLE 75 ML IV (09:31)
== END 2025-01-02 23:59 | disposition home or self-care (01) ==
LOC: RAD 08:42
PROVIDERS: PCP Internal Medicine Adolescent Medicine; Visit Provider Internal Medicine Adolescent Medicine
DX: K80.20 Calculus of gallbladder without cholecystitis without obstruction (principal); N28.89 Other specified disorders of kidney and ureter
CPT/HCPCS: 74170; Q9967

== ENCOUNTER 2025-01-04 09:22 | Outpatient (CLI) | payer MEDICARE, OTHER, SELFPAY ==
--- OUTSIDE RECORDS SUMMARY | 2024-09-30 17:30 | XMS_ITS ---
Author Organization [facility] Address [address] [place] [address] Care Team Providers Care Linux Network Engineer Name Role Phone Omar Guzman Primary Care Provider Migration, Provider Unavailable Unavailable [facility]AS[facility] VISIT [facility] Conversion Encounter Medications Medication SIG (Take, Route, Frequency, Duration) Notes Start Date End Date Status Atorvastatin Calcium 40 MG TAKE 1 TABLET DAILY; Duration: 90 days Active metFORMIN HCl 500 MG 1 tab(s) orally daily; Duration: 90 days Active Metoprolol Succinate ER 25 MG TAKE 1 TABLET DAILY Active hydroCHLOROthiazide 25 MG 1 tab(s) orall y once a day; Duration: 90 days Active Methocarbamol 500 MG 2 tab(s) orally every 8 hours PRN Active Aspirin 81 MG 1 TAB(S) ORALLY ONCE A DAY *Please review and pick correct strength-formulat ion from [employer] options. If intended option is not shown, discontinue and re-order from Quick Search* Active Omeprazole 20 MG 1 cap(s) orally once a day Active Anoro Ellipta 62.5 MCG-25 MCG/INH USE 1 INHALATION DAILY *Please review and pick correct strength-formulat ion from [employer] options. If intended option is not shown, discontinue and re-order from Quick Search* Active traZODone HCl 50 MG as directed orally at bedtime; Duration: 90 days 09/20/2023 Active Losartan Potassium 100 MG 1 tab(s) orall y once a day; Duration: 90 days Active FiberCon 6 PER DAY *Please review and pick correct strength-formulat ion from [employer] options. If intended option is not shown, discontinue and re-order from Quick Search* Active Encounters Encounter Location Date Provider Diagnosis [facility] [address] [facility] [address] [facility] [address] [place] [address] 09/30/2024 Provider Migration Plan Of Treatment Medication Medication Name Sig Start Date Stop Date Notes hydroCHLOROthiazide 25 MG 1 tab(s) orall y once a day; Duration: 90 days Next Appt Details Provider Name:Omar Guzman, 01/31/2025 12:15:00 PM, [address], [address], [place], [address], Progress Notes * León BEDOLLA RDOB: [birth year] (79 yo M)Acc No.[id number]:09/30/2024 Patient: Gómez SUZETTE León R Provider: Siobhan hallman Migration :1945 A ge:79 Y S ex:Male Date:09/30/2024 Address:[place], [id number] Pcp:Omar Guzman Subjective: * Chief Complaints: * [address] [facility]. * Medical History: * Medications: T aking Methocarbamol 500 MG Tablet 2 tab(s) orally every 8 hours PRN , Taking FiberCon CAP 6 PER DAY , Notes to Pharmacist: *Please review and pick correct strength-formulation from [employer] options. If intended option is not shown, discontinue and re-order from Quick Search*, Taking Aspirin 81 MG TABLET 1 TAB(S) ORALLY ONCE A DAY , Notes to Pharmacist: *Please review and pick correct strength-formulation from [employer] options. If intended option is not shown, discontinue and re-order from Quick Search*, Taking traZODone HCl 50 MG Tablet as directed orally at bedtime , Taking Losartan Potassium 100 MG Tablet 1 tab(s) orally once a day , Taking Omeprazole 20 MG Capsule Delayed Release 1 cap(s) orally once a day , Taking Anoro Ellipta 62.5 MCG-25 MCG/INH POWDER USE 1 INHALATION DAILY , Notes to Pharmacist: *Please review and pick correct strength-formulation from [employer] options. If intended option is not shown, discontinue and re-order from Quick Search*, Taking Atorvastatin Calcium 40 MG Tablet TAKE 1 TABLET DAILY , Taking metFORMIN HCl 500 MG Tablet 1 tab(s) orally daily , Taking Metoprolol Succinate ER 25 MG Tablet Extended Release 24 Hour TAKE 1 TABLET DAILY Objective: * Vitals: Assessment: Plan: * Treatment: * * Electronic signature of Marilee loredo Migration on 01/04/2025 at 09:25 AM EDT Sign off status: Pending * Provider: Siobhan hallman Migration Date: 09/30/2024 Generated for Jeremías crowder/Argelia/Artemio on: 0 01/04/2025 09:25 AM EDT
--- OUTSIDE RECORDS SUMMARY | 2024-12-20 08:00 | XMS_ITS ---
Author Organization [facility] Address [address] [place] [address] Care Team Providers Care Application Developer Name Role Phone Omar Guzman Primary Care Provider Allergies No Known Allergies Results Component Value Reference Range Notes LIPID PANEL, STANDARD (7600) Reviewed date:12/25/2024 11:32:17 AM Interpretation: Performing Lab:[facility] [id number], [place] [id number] Tong Harper Notes/Report: CHOLESTEROL, TOTAL 143 <200 mg/dL HDL CHOLESTEROL 52 > OR = 40 mg/dL TRIGLYCERIDES 163 <150 mg/dL LDL-CHOLESTEROL 67 Reference range: <100 Desirable range <100 mg/dL for primary prevention; <70 mg/dL for patients with CHD or diabetic patients with > or = 2 CHD risk factors. LDL-C is now calculated using the Matt-Millard calculation, which is a validated novel method providing better accuracy than the Friedewald equation in the estimation of LDL-C. Matt SILVEIRA et al. ELVIS. 2013;310(19): 1302-1455 (http://education.Liazon.Wimdu/faq/LWQ971) CHOL/HDLC RATIO 2.8 <5.0 (calc) NON HDL CHOLESTEROL 91 <130 mg/dL (calc) For patients with diabetes plus 1 major ASCVD risk factor, treating to a non-HDL-C goal of <100 mg/dL (LDL-C of <70 mg/dL) is considered a therapeutic option. COMPREHENSIVE METABOLIC PANE L (52415) Reviewed date:12/25/2024 11:32:17 AM Interpretation: Performing Lab:[facility] Hartmane[address] Instagram Mj [id number] Tong Harper Notes/Report: GLUCOSE 115 65-99 mg/dL Fasting reference interval For someone without known diabetes, a glucose value between 100 and 125 mg/dL is consistent with prediabetes and should be confirmed with a follow-up test. UREA NITROGEN (BUN) 19 7-25 mg/dL CREATININE 0.69 0.70-1.28 mg/dL EGFR 95 > OR = 60 mL/min/1.73m2 BUN/CREATININE RATIO 28 6-22 (calc) SODIUM 142 135-146 mmol/L POTASSIUM 4.1 3.5-5.3 mmol/L CHLORIDE 102 98-110 mmol/L CARBON DIOXIDE 34 20-32 mmol/L CALCIUM 9.5 8.6-10.3 mg/dL PROTEIN, TOTAL 6.5 6.1-8.1 g/dL ALBUMIN 4.0 3.6-5.1 g/dL GLOBULIN 2.5 1.9-3.7 g/dL (calc) ALBUMIN/GLOBULIN RATIO 1.6 1.0-2.5 (calc) BILIRUBIN, TOTAL 0.7 0.2-1.2 mg/dL ALKALINE PHOSPHATASE 63 35-144 U/L AST 16 10-35 U/L ALT 12 9-46 U/L CBC (INCLUDES DIFF/PLT) (639 9) Reviewed date:12/25/2024 11:32:18 AM Interpretation: Performing Lab:[facility] Daqh[address] [facility] CenterStadPX[address] Tong Harper Notes/Report: WHITE BLOOD CELL COUNT 7.6 3.8-10.8 Thousand/ uL RED BLOOD CELL COUNT 5.16 4.20-5.80 Million/uL HEMOGLOBIN 15.9 13.2-17.1 g/dL HEMATOCRIT 49.6 38.5-50.0 % MCV 96.1 80.0-100.0 fL MCH 30.8 27.0-33.0 pg MCHC 32.1 32.0-36.0 g/dL For adults, a slight decrease in the calculated MCHC value (in the range of 30 to 32 g/dL) is most likely not clinically significant; however, it should be interpreted with caution in correlation with other red cell parameters and the patient's clinical condition. RDW 12.7 11.0-15.0 % PLATELET COUNT 181 140-400 Thousand/uL MPV 11.4 7.5-12.5 fL ABSOLUTE NEUTROPHILS 5305 8303-5125 cells/uL ABSOLUTE LYMPHOCYTES 9556 223-2980 cells/uL ABSOLUTE MONOCYTES 608 200-950 cells/uL ABSOLUTE EOSINOPHILS 258 15-500 cells/uL ABSOLUTE BASOPHILS 53 0-200 cells/uL NEUTROPHILS 69.8 LYMPHOCYTES 18.1 MONOCYTES 8.0 EOSINOPHILS 3.4 BASOPHILS 0.7 HEMOGLOBIN A1c (496) Reviewed date:12/25/2024 11:32:18 AM Interpretation: Performing Lab:[facility], [facility] [address] [facility], Mj HartmanOdqnXQ[address] Tong Harper Notes/Report: HEMOGLOBIN A1c 6.4 <5.7 % For someone without known diabetes, a hemoglobin A1c value between 5.7% and 6.4% is consistent with prediabetes and should be confirmed with a follow-up test. For someone with known diabetes, a value <7% indicates that their diabetes is well controlled. A1c targets should be individualized based on duration of diabetes, age, comorbid conditions, and other considerations. This assay result is consistent with an increased risk of diabetes. Currently, no consensus exists regarding use of hemoglobin A1c for diagnosis of diabetes for children. REASON FOR VISIT 3 month follow up Medications Medication SIG (Take, Route, Frequency, Duration) Notes Start Date End Date Status hydroCHLOROthiazide 25 MG 1 tab(s) orall y once a day; Duration: 90 days Active Omeprazole 20 mg TAKE 1 CAPSULE DAILY Active Metoprolol Succinate ER 25 MG TAKE 1 TABLET DAILY Active Trelegy Ellipta 100-62.5-25 MCG/ACT 1 puff Inhalation Once a day 12/20/2024 Active Atorvastatin Calcium 40 MG TAKE 1 TABLET DAILY; Duration: 90 days Active metFORMIN HCl 500 MG 1 tab(s) orally daily; Duration: 90 days Active Aspirin 81 MG 1 TAB(S) ORALLY ONCE A DAY *Please review and pick correct strength-formulat ion from 2sms options. If intended option is not shown, discontinue and re-order from Quick Search* Active traZODone HCl 50 MG as directed orally at bedtime; Duration: 90 days 09/20/2023 Active Losartan Potassium 100 MG 1 tab(s) orall y once a day; Duration: 90 days Active Methocarbamol 500 MG 2 tab(s) orally every 8 hours PRN Active FiberCon 6 PER DAY *Please review and pick correct strength-formulat ion from Medispan options. If intended option is not shown, discontinue and re-order from Quick Search* Active Social History Tobacco Use: Social History Observation Description Date Details (start date - stop date) Current Smoker NA - NA Smoking: Question Answer Notes Are you a: current smoker How often do you smoke cigarettes? some days, bu t not every day How many cigarettes a day do you smoke? 5 or les s Problems Problem Type SNOMED Code ICD Code Onset Dates Problem Status W/U Status Risk Notes Problem Right renal mass (N28.89) Active confirmed Problem Liver cyst (22629000) Liver cyst (K76.89) Active confirmed Vital Signs Temperature 97.9 degrees Fahrenheit 12/21/19 25 Blood pressure systolic 130 mm Hg 12/21/19 25 Blood pressure diastolic 80 mm Hg 025 Heart Rate 100 /min 12/20/2024 Height 5 ft 8 in in 12/20/2024 Weight 169.2 lbs 12/20/2024 BMI 25.72 kg/m2 12/20/2024 Encounters Encounter Location Date Provider Diagnosis [facility] [address] [facility] [address] [place] [address] 12/20/2024 Omar Guzman Chronic obstructive pulmonary disease, unspecified COPD type J44.9 ; Hyperlipemia, idiopathic familial E78.5 ; Essential hypertension I10 ; Diabetes mellitus type 2, noninsulin dependent E11.9 ; Multiple pulmonary nodules R91.8 ; Right renal mass N28.89 and Liver cyst K76.89 Assessments Encounter Date Diagnosis (ICD Code) Assessment Notes Treatment Notes Treatment Clinical Notes Section Notes 12/20/2024 Chronic obstructive pulmonary disease, unspecified COPD type (ICD-10 - J44.9) Patient continues to have some wheezing. Do not feel that his shortness of air is well-controlled . Switch to triple inhaler. Demonstrated the patient. 12/20/2024 Hyperlipemia, idiopathic familial (ICD-10 - E78.5) 12/20/2024 Essential hypertension (ICD-10 - I10) 12/20/2024 Diabetes mellitus type 2, noninsulin dependent (ICD-10 - E11.9) Check labs to monitor conditions. I will review these personally 12/20/2024 Multiple pulmonary nodules (ICD-10 - R91.8) 12/20/2024 Right renal mass (ICD-10 - N28.89) Reviewed nodules in the lungs and renal cyst with patient. Probably benign but needs imaging follow-up. This is scheduled already personally 12/20/2024 Liver cyst (ICD-10 - K76.89) Repeat imaging scheduled. I will review these personally and I will Plan Of Treatment Medication Medication Name Sig Start Date Stop Date Notes Anoro Ellipta 62.5 MCG-25 MCG/INH USE 1 INHALATION DAILY *Please review and pick correct strength-formulation from 2sms options. If intended option is not shown, discontinue and re-order from Quick Search* Trelegy Ellipta 100-62.5-25 MCG/ACT 1 puff Inhalation Once a day 12/20/2024 Treatment Notes Assessment Notes Chronic obstructive pulmonar y disease, unspecified COPD type Patient continues to have some wheezing. Do not feel that his shortness of air is well-controlled. Switch to triple inhaler. Demonstrated the patient. Diabetes mellitus type 2, no ninsulin dependent Check labs to monitor conditions. I will review these personally Right renal mass Reviewed nodules in the lungs and renal cyst with patient. Probably benign but needs imaging follow-up. This is scheduled already personally Liver cyst Repeat imaging sched uled. I will review these personally and I will Pending Test Test Name Order Date CT Scan : Chest, Without Contrast 2024 Ultrasound : Liver 12/20/2024 CT Scan : Abdomen Adrenal Protocol 12/20 Next Appt Details Follow Up: prn, Reason: Provider Name:Omar Guzman, 01/31/2025 12:15:00 PM, [address] [facility], [address], [place], [address], Progress Notes * León DICKERSON RDOB: [birth year] (79 yo M)Acc No.[id number]:12/20/2024 Progress Notes Patient: León CHACON Provider: Haseeb Guzman MD :1945 A ge:79 Y S ex:Male Date:12/20/2024 Address:[place], [id number] Subjective: * Chief Complaints: * 1 . 3 month follow up. * HPI: g en: No major change in his situation... needs several things updated... see focused A/P below.. * Medical History: E nlarged Prostate, GERD, Hypertension, Hyperlipidemia, Atherosclerosis, COPD, colonoscopy September 2016 with tubular adenoma, low-dose lung cancer screening September 2016 - repeated 04/15 -scan with contrast November/2019 shows stable nodules - LDCT 12/16 with no changes.. repeat 10/18 also with no changes from baseline - scan 10/19 with new opacities. 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 * Surgical History: m astoidectomy left ear , prostate bx , colonoscopy normal , removal of nodes from prostate 03/2018, cataract removal-bilateral eyes 2023. * Hospitalization/Major Diagno stic Procedure: r /t surgies , fever , [place]- Flu A , Bronchitis and Dehydration 06/26/2017. * Family History: F ather: , diagnosed with Heart Disease. M other: . P aternal Grand Father: . P aternal Grand Mother: , diagnosed with Heart Disease. M aternal Grand Father: . M aternal Grand Mother: . P aternal uncle: . P aternal aunt: alive. M aternal uncle: alive. M aternal aunt: alive. S iblings: alive. C hildren: alive. 3 brother(s) , 1 sister(s) - healthy. 1 son(s) , 1 daughter(s) - healthy. .? * Social History: S moking A re you a: c urrent smoker, H ow often do you smoke cigarettes? s ome days, but not every day, H ow many cigarettes a day do you smoke? 5 or less. R ecreational drug use: no. Exercise: no. Home smoke detector use: yes. Caffeine: yes, frequency:2-3 cups coffee per day. Living Will: Yes. Alcohol: socially. Sexually active: no. [place]. Occupation: retired. * Medications: T aking Methocarbamol 500 MG Tablet 2 tab(s) orally every 8 hours PRN , Taking FiberCon CAP 6 PER DAY , Notes to Pharmacist: *Please review and pick correct strength-formulation from Launchran options. If intended option is not shown, discontinue and re-order from Quick Search*, Taking Aspirin 81 MG TABLET 1 TAB(S) ORALLY ONCE A DAY , Notes to Pharmacist: *Please review and pick correct strength-formulation from Launchran options. If intended option is not shown, discontinue and re-order from Quick Search*, Taking traZODone HCl 50 MG Tablet as directed orally at bedtime , Taking Losartan Potassium 100 MG Tablet 1 tab(s) orally once a day , Taking Anoro Ellipta 62.5 MCG-25 MCG/INH POWDER USE 1 INHALATION DAILY , Notes to Pharmacist: *Please review and pick correct strength-formulation from Launchran options. If intended option is not shown, discontinue and re-order from Quick Search*, Taking Atorvastatin Calcium 40 MG Tablet TAKE 1 TABLET DAILY , Taking metFORMIN HCl 500 MG Tablet 1 tab(s) orally daily , Taking Metoprolol Succinate ER 25 MG Tablet Extended Release 24 Hour TAKE 1 TABLET DAILY , Taking hydroCHLOROthiazide 25 MG Tablet 1 tab(s) orally once a day , Taking Omeprazole 20 mg Capsule Delayed Release TAKE 1 CAPSULE DAILY , Medication List reviewed and reconciled with the patient * Allergies: N .K.D.A. Objective: * Vitals: N urse: KJ, Pain: 0, Temp: 97.9, RR: 20, HR: 100, BP: 130/80, Ht: 5 ft 8 in, Wt: 169.2, BMI:25.72. * Examination: G eneral Examination: General P leasant and Cooperative, NAD on RA,. Heart: R egular Rate and Rhythm, no murmur, rubs or gallops. HEENT: p harynx and tonsils normal, TM's normal. Lungs: L CTAB, No wheezes, crackles or rhonchi, Good air movement,. Abdomen: S oft, NTND, BSNA, No organomegaly or peritoneal signs.. Extremities: B rawny skin changes below both knees from mid brown down, no pitting edema but does have lymphedema around the ankles and the dorsum of the feet especially the left side. Pulses are slightly diminished because of the edema but are present.? No foot lesions, no nail deformities. Assessment: * Assessment: 1. C hronic obstructive pulmonary disease, unspecified COPD type - J44.9 (Primary) ?2. H yperlipemia, idiopathic familial - E78.5 3 . E ssential hypertension - I10 4 . D iabetes mellitus type 2, noninsulin dependent - E11.9 5. M ultiple pulmonary nodules - R91.8 6 . R ight renal mass - N28.89? 7. L iver cyst - K76.89 Plan: * Treatment: 2. H yperlipemia, idiopathic familial L AB: LIPID PANEL, STANDARD (7600) (Collection Date & Time - 12/20/2024 12:33 PM) Value Reference Range T RIGLYCERIDES 163 H <150 - mg/dL * C HOLESTEROL, TOTAL 143 <200 - mg/dL * H DL CHOLESTEROL 52 > OR = 40 - mg/dL * L DL-CHOLESTEROL 67 - mg/dL (calc) * C HOL/HDLC RATIO 2.8 <5.0 - (calc) * N ON HDL CHOLESTEROL 91 <130 - mg/dL (calc) * Alia Dent 12/25/2024 11:32:11 AM EDT > Patient informed ?LAB: COMPREHENSIVE METABOLIC PANEL (90428) (Collection Date & Time - 12/20/2024 12:33 PM)* Value Reference Range G LUCOSE 115 H 65-99 - mg/dL * U ALEJANDRO NITROGEN (BUN) 19 7-25 - mg/dL * C REATININE 0.69 L 0.70-1.28 - mg/dL * B UN/CREATININE RATIO 28 H 6-22 - (calc) * S ODIUM 142 135-146 - mmol/L * P OTASSIUM 4.1 3.5-5.3 - mmol/L * C HLORIDE 102 98-110 - mmol/L * C ARBON DIOXIDE 34 H 20-32 - mmol/L * C ALCIUM 9.5 8.6-10.3 - mg/dL * P ROTEIN, TOTAL 6.5 6.1-8.1 - g/dL * A LBUMIN 4.0 3.6-5.1 - g/dL * G LOBULIN 2.5 1.9-3.7 - g/dL (calc ) * A LBUMIN/GLOBULIN RATIO 1.6 1.0-2.5 - (calc) * B ILIRUBIN, TOTAL 0.7 0.2-1.2 - mg/dL * A LKALINE PHOSPHATASE 63 35-144 - U/L * A ST 16 10-35 - U/L * A LT 12 9-46 - U/L * E GFR 95 > OR = 60 - mL/min/1 .73m2 * Alia Dent 12/25/2024 11:32:11 AM EDT > Patient informed ?LAB: CBC (INCLUDES DIFF/PLT) (4020) (Collection Date & Time - 12/20/2024 12:33 PM)* Value Reference Range W AMANDA BLOOD CELL COUNT 7.6 3.8-10.8 - Thousan d/uL * R ED BLOOD CELL COUNT 5.16 4.20-5.80 - Million/ uL * H EMOGLOBIN 15.9 13.2-17.1 - g/dL * H EMATOCRIT 49.6 38.5-50.0 - % * M CV 96.1 80.0-100.0 - fL * M CH 30.8 27.0-33.0 - pg * M CHC 32.1 32.0-36.0 - g/dL * R DW 12.7 11.0-15.0 - % * P LATELET COUNT 181 140-400 - Thousand/u L * N EUTROPHILS 69.8 - % * A BSOLUTE NEUTROPHILS 5305 2469-6670 - cells/uL * L YMPHOCYTES 18.1 - % * A BSOLUTE LYMPHOCYTES [phone] - cells/uL * M ONOCYTES 8.0 - % * A BSOLUTE MONOCYTES 608 200-950 - cells/uL * E OSINOPHILS 3.4 - % * A BSOLUTE EOSINOPHILS 258 15-500 - cells/uL * B ASOPHILS 0.7 - % * A BSOLUTE BASOPHILS 53 0-200 - cells/uL * M PV 11.4 7.5-12.5 - fL * Alia Dent Greta 12/25/2024 11:32:11 AM EDT > Patient informed ?LAB: HEMOGLOBIN A1c (496) (Collection Date & Time - 12/20/2024 12:33 PM)* Value Reference Range H EMOGLOBIN A1c 6.4 H <5.7 - % * Alia Dent 12/25/2024 11:32:11 AM EDT > Patient informed 3.?Diabetes mellitus type 2, noninsulin dependent?LAB: LIPID PANEL, STANDARD (7600) (Collection Date & Time - 12/20/2024 12:33 PM)* Value Reference Range T RIGLYCERIDES 163 H <150 - mg/dL * C HOLESTEROL, TOTAL 143 <200 - mg/dL * H DL CHOLESTEROL 52 > OR = 40 - mg/dL * L DL-CHOLESTEROL 67 - mg/dL (calc) * C HOL/HDLC RATIO 2.8 <5.0 - (calc) * N ON HDL CHOLESTEROL 91 <130 - mg/dL (calc) * Alia Dent 12/25/2024 11:32:11 AM EDT > Patient informed ?LAB: COMPREHENSIVE METABOLIC PANEL (71973) (Collection Date & Time - 12/20/2024 12:33 PM)* Value Reference Range G LUCOSE 115 H 65-99 - mg/dL * U ALEJANDRO NITROGEN (BUN) 19 7-25 - mg/dL * C REATININE 0.69 L 0.70-1.28 - mg/dL * B UN/CREATININE RATIO 28 H 6-22 - (calc) * S ODIUM 142 135-146 - mmol/L * P OTASSIUM 4.1 3.5-5.3 - mmol/L * C HLORIDE 102 98-110 - mmol/L * C ARBON DIOXIDE 34 H 20-32 - mmol/L * C ALCIUM 9.5 8.6-10.3 - mg/dL * P ROTEIN, TOTAL 6.5 6.1-8.1 - g/dL * A LBUMIN 4.0 3.6-5.1 - g/dL * G LOBULIN 2.5 1.9-3.7 - g/dL (calc ) * A LBUMIN/GLOBULIN RATIO 1.6 1.0-2.5 - (calc) * B ILIRUBIN, TOTAL 0.7 0.2-1.2 - mg/dL * A LKALINE PHOSPHATASE 63 35-144 - U/L * A ST 16 10-35 - U/L * A LT 12 9-46 - U/L * E GFR 95 > OR = 60 - mL/min/1 .73m2 * Alia Dent 12/25/2024 11:32:11 AM EDT > Patient informed ?LAB: CBC (INCLUDES DIFF/PLT) (1489) (Collection Date & Time - 12/20/2024 12:33 PM)* Value Reference Range W AMANDA BLOOD CELL COUNT 7.6 3.8-10.8 - Thousan d/uL * R ED BLOOD CELL COUNT 5.16 4.20-5.80 - Million/ uL * H EMOGLOBIN 15.9 13.2-17.1 - g/dL * H EMATOCRIT 49.6 38.5-50.0 - % * M CV 96.1 80.0-100.0 - fL * M CH 30.8 27.0-33.0 - pg * M CHC 32.1 32.0-36.0 - g/dL * R DW 12.7 11.0-15.0 - % * P LATELET COUNT 181 140-400 - Thousand/u L * N EUTROPHILS 69.8 - % * A BSOLUTE NEUTROPHILS 5305 7496-9555 - cells/uL * L YMPHOCYTES 18.1 - % * A BSOLUTE LYMPHOCYTES 3724 403-6316 - cells/uL * M ONOCYTES 8.0 - % * A BSOLUTE MONOCYTES 608 200-950 - cells/uL * E OSINOPHILS 3.4 - % * A BSOLUTE EOSINOPHILS 258 15-500 - cells/uL * B ASOPHILS 0.7 - % * A BSOLUTE BASOPHILS 53 0-200 - cells/uL * M PV 11.4 7.5-12.5 - fL * Alia Dent 12/25/2024 11:32:11 AM EDT > Patient informed ?LAB: HEMOGLOBIN A1c (496) (Collection Date & Time - 12/20/2024 12:33 PM)* Value Reference Range H EMOGLOBIN A1c 6.4 H <5.7 - % * Alia Dent 12/25/2024 11:32:11 AM EDT > Patient informed Notes: Check labs to monitor conditions. I will review these personally?? 4.?Multiple pulmonary nodules?Imaging: CT Scan : Chest, Without Contrast* Reba Emmanuel 12/20/2024 04: 49:09 PM EDT > No Precert needed for CPT 94518 * 5.?Right renal mass?LAB: LIPID PANEL, STANDARD (7600) (Collection Date & Time - 12/20/2024 12:33 PM)* Value Reference Range T RIGLYCERIDES 163 H <150 - mg/dL * C HOLESTEROL, TOTAL 143 <200 - mg/dL * H DL CHOLESTEROL 52 > OR = 40 - mg/dL * L DL-CHOLESTEROL 67 - mg/dL (calc) * C HOL/HDLC RATIO 2.8 <5.0 - (calc) * N ON HDL CHOLESTEROL 91 <130 - mg/dL (calc) * Filipe Alia L 12/25/2024 11:32:11 AM EDT > Patient informed ?LAB: COMPREHENSIVE METABOLIC PANEL (72279) (Collection Date & Time - 12/20/2024 12:33 PM)* Value Reference Range G LUCOSE 115 H 65-99 - mg/dL * U ALEJANDRO NITROGEN (BUN) 19 7-25 - mg/dL * C REATININE 0.69 L 0.70-1.28 - mg/dL * B UN/CREATININE RATIO 28 H 6-22 - (calc) * S ODIUM 142 135-146 - mmol/L * P OTASSIUM 4.1 3.5-5.3 - mmol/L * C HLORIDE 102 98-110 - mmol/L * C ARBON DIOXIDE 34 H 20-32 - mmol/L * C ALCIUM 9.5 8.6-10.3 - mg/dL * P ROTEIN, TOTAL 6.5 6.1-8.1 - g/dL * A LBUMIN 4.0 3.6-5.1 - g/dL * G LOBULIN 2.5 1.9-3.7 - g/dL (calc ) * A LBUMIN/GLOBULIN RATIO 1.6 1.0-2.5 - (calc) * B ILIRUBIN, TOTAL 0.7 0.2-1.2 - mg/dL * A LKALINE PHOSPHATASE 63 35-144 - U/L * A ST 16 10-35 - U/L * A LT 12 9-46 - U/L * E GFR 95 > OR = 60 - mL/min/1 .73m2 * Alia Dent 12/25/2024 11:32:11 AM EDT > Patient informed ?LAB: CBC (INCLUDES DIFF/PLT) (0299) (Collection Date & Time - 12/20/2024 12:33 PM)* Value Reference Range W AMANDA BLOOD CELL COUNT 7.6 3.8-10.8 - Thousan d/uL * R ED BLOOD CELL COUNT 5.16 4.20-5.80 - Million/ uL * H EMOGLOBIN 15.9 13.2-17.1 - g/dL * H EMATOCRIT 49.6 38.5-50.0 - % * M CV 96.1 80.0-100.0 - fL * M CH 30.8 27.0-33.0 - pg * M CHC 32.1 32.0-36.0 - g/dL * R DW 12.7 11.0-15.0 - % * P LATELET COUNT 181 140-400 - Thousand/u L * N EUTROPHILS 69.8 - % * A BSOLUTE NEUTROPHILS [phone] - cells/uL * L YMPHOCYTES 18.1 - % * A BSOLUTE LYMPHOCYTES [phone] - cells/uL * M ONOCYTES 8.0 - % * A BSOLUTE MONOCYTES 608 200-950 - cells/uL * E OSINOPHILS 3.4 - % * A BSOLUTE EOSINOPHILS 258 15-500 - cells/uL * B ASOPHILS 0.7 - % * A BSOLUTE BASOPHILS 53 0-200 - cells/uL * M PV 11.4 7.5-12.5 - fL * Alia Dent 12/25/2024 11:32:11 AM EDT > Patient informed ?LAB: HEMOGLOBIN A1c (496) (Collection Date & Time - 12/20/2024 12:33 PM)* Value Reference Range H EMOGLOBIN A1c 6.4 H <5.7 - % * Alia Dent 12/25/2024 11:32:11 AM EDT > Patient informed ?Imaging: CT Scan : Abdomen Adrenal Protocol* Reba Emmanuel 12/20/2024 04: 52:35 PM EDT > With and Without Contrast No precert needed for CPT 94471 Adrenal Mass Protocol * Notes: Reviewed nodules in the lungs and renal cyst with patient. Probably benign but needs imagingfollow-up. This is scheduled already personally??6.?Liver cyst?Imaging: Ultrasound : Liver* Reba Emmanuel 12/20/2024 04: 51:28 PM EDT > No Precert needed for CPT 61821 * Notes: Repeat imaging scheduled. I will review these personally and I will?? * Procedure Codes: 9 4664 DEMONSTRATE USE MDI/NEB, G2211 Complex e/m visit add on * Follow Up: p rn * * Sign off status: Completed true * Provider: Haseeb Guzman MD Date: 0 12/20/2024 Generated for Printi lakesha/Argelia/eTransmitting on: 0 01/04/2025 09:25 AM EDT History and Physical Notes * HPI (History of Present Illness) Category Sub-Category Detail Notes Category Not es gen No major change in his situation... needs several things updated... see focused A/P below.. Examination Category Sub-Category Detail Notes Category Not es General Examination HEENT: pharynx and tonsils normal, TM's normal Heart: Regular Rate and Rhy thm, no murmur, rubs or gallops Lungs: LCTAB, No wheezes, c rackles or rhonchi, Good air movement, Abdomen: Soft, NTND, BSNA, No organomegaly or peritoneal signs. Extremities: Brawny skin changes below both knees from mid brown down, no pitting edema but does have lymphedema around the ankles and the dorsum of the feet especially the left side. Pulses are slightly diminished because of the edema but are present. No foot lesions, no nail deformities General Pleasant and [place] SARATH parrish on RA,
--- NOTE | 2025-01-04 09:25 | US_ITS ---
FINAL REPORT CLINICAL HISTORY: liver mass seen on ct COMPARISON: CT of the abdomen and pelvis 01/02/2025 FINDINGS: Sonographic images of the right upper quadrant were obtained. The pancreas is partially obscured. There is a heterogeneous echogenic shadowing focus in the medial aspect of the right lobe of the liver, corresponding to the calcified mass seen on the prior CT of 01/02/2025. There is a small gallstone present in the dependent portion of the gallbladder. There is no evidence of biliary ductal dilatation.The common duct measures 4mm. Limited images of the right kidney are unremarkable. IMPRESSION: Heterogeneous echogenic shadowing focus in the medial aspect of the right lobe of the liver, corresponding to the calcified mass seen on a prior CT of 01/02/2025. A small gallstone is present in the dependent portion of the gallbladder. Reviewed, Interpreted and Dictated by Frank Young MD Transcribed by Milady Walker Authenticated and [facility]
--- OUTSIDE RECORDS SUMMARY | 2025-01-04 09:25 | XMS_ITS | Clinical Summary ---
Author Organization Healthcare Address [address] [place] [address] Care Team Providers Care Data Quality Consultant Name Role Phone Omar Guzman MD Primary Care Provider [phone] Allergies No known active allergies Medications atorvastatin [...] CT 02/14/2024 Atherosclerotic heart diseas e of [place] coronary artery without angina pectoris 02/14/2024 Bladder [...] place to sleep or slept in a intermediate (including now)? 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 0 12/16/2023 CAGE Questionnaire Score 0 024 Utilities Answer Date Recorded In the past 12 months has th e [employer], gas, oil, or water [employer] threatened to shut off services in your [...] Description 02/19/2025 1:45 PM EDT Office Visit [facility] [address] [place] [address] Mallory Osorio S, OD [address] [address] Health Maintenance Due Date Last Done Comments [facility]-Depression Screening 1945 [facility]-Diabetes: Hemoglobin A1C 1945 [facility]-Medicare Annual Wellness (AWV) 1945 [facility]-/Child/Adol SDOH Screenings 1945 Diabetes: Dental Exam 01/30/1956 [facility]- SDOH Screenings 01/30/1964 [facility]-Adult SDOH Screenings 01/30/1964 [facility]-DTaP,Tdap,and Td Vaccines (1 - Tdap) 02/06/2012 02/05/2012 [facility]-RSV Vaccine: 60+ Years or (1 - 1-dose 75+ series) 2021 [id number] Vaccine (4 - 2023- season) 2024 04/02/2021, [...] 7:54 AM by Shahrzad Heredia MD via [employer] secure chat. Drafted by Shahrzad Heredia MD [...] 47:54 AM by Shahrzad Heredia MD via [employer] secure chat. Drafted by Shahrzad Heredia MD on 12/19/2023 7:39 AM Final report signed by Shahrzad Heredia MD on 12/19/2023 7:55 AM us Lenore Ndiaye MD IMG CT PROCEDURES Final Resu lt * Hepatitis C Antibody - ED (12/16/2023 5:18 PM EDT) Hepatitis C Antibody Negative Negative 12/16/2023 6:11 PM EDT [facility] Blood Venous blood specimen / Unknown Venipuncture / Unknown 12/16/2023 5:18 PM EDT 12/16/2023 5:29 PM EDT Collin Carroll MD LAB BLOOD ORDERABLES Final Resu lt [facility] [address] [place] [phone] from Last 3 Months or Most Recently Relevant to Health Maintenance Insurance MEDICARE [facility] Advance Directives * Full Code (Latest Code Status on File) Date Activated Date Inactivated Comments 12/16/2023 10:49 PM 12/21/2023 8:13 PM Question Answer Comments Patient has decision-making capacity? Yes Care Teams Data Quality Consultant Relationship Specialty Start Date End Date Omar Guzman MD [address] [place] [address] PCP - General Internal Medicine 12/17/23
--- OUTSIDE RECORDS SUMMARY | 2025-01-04 09:25 | XMS_ITS | Encounter Summary ---
Author Organization Healthcare Address [address] [id number] Care Team Providers Care Programmer Or Analyst Name Role Phone Omar Guzman MD Primary Care Provider [phone] Encounter Details Date Type Department Care Team (Late st Contact Info) Description 12/18/2023 Ophth Exam [facility] [address] [place] [address] Frandy Tom MD [address] [id number] Social History Tobacco Use Types Packs/Day Years [...] place to sleep or slept in a retirement (including now)? 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) to steady your nerves or to get [...] Description 02/19/2025 1:45 PM EDT Office Visit [facility] [address] [place] [address] Mallory Osorio S, OD [address] [place] [address] documented as of this encounter Visit Diagnoses Not on filedocumented in this encounter Additional Health Concerns Infection Onset Date Last Indicated Resolved Time Meningitis Rule-Out 12/18/2023 12/18/2023 12/18/19 8:04 PM EDT Assessment Noted Time A Body Mass Index follow-up plan has been documented for the patient 12/21/2023 5:32 PM EDT documented as of this encounter Care Teams Programmer Or Analyst Relationship Specialty Start Date End Date Omar Guzamn MD [address] [place] [address] PCP - General Internal Medicine 12/17/23 documented as of this encounter
--- OUTSIDE RECORDS SUMMARY | 2025-01-04 09:25 | XMS_ITS | Patient Health Record ---
Author Organization [facility] Address [address] [place] [address] Care Team Providers Care Regrinder Name Role Phone Omar Guzman Primary Care Provider [phone] McShayna Martinez Unavailable [phone] Migration, Provider Unavailable Unavailable Allergies No Known Allergies Results Component Value Reference Range Notes HEMOGLOBIN A1c (496) Reviewed date:03/24/2024 08:49:57 AM Interpretation: Performing Lab:[facility]AKA, [facility] [id number] [facility], [facility] InstituteThnlRL[address] Tong Harper Notes/Report: FASTING: NO FASTING:NO NON-FASTING; [...] change in test platforms from the Molina Night Patrol Inspector to the Soledad chong c503 may have shifted HbA1c results compared to historical results. Based on laboratory validation testing conducted at [facility], the Soledad platform relative to the Molina platform had an average increase in HbA1c value of < or = 0.3%. This difference is within accepted variability established by the National Glycohemoglobin Standardization Program. Note that not all individuals will have had a shift in their results and direct comparisons between historical and current results for testing conducted on different platforms is not recommended. CBC (INCLUDES DIFF/PLT) (639 9) Reviewed date:03/24/2024 08:49:57 AM Interpretation: Performing Lab:[facility] [id number] [employer], Imagine CommunicationsPfrmJL[address] Tong Harper Notes/Report: NON-FASTING; NON-FASTING; NON-FASTING; NON-FASTING FASTING:NO FASTING: NO WHITE BLOOD CELL COUNT 6.9 3.8-10.8 Thousand/ uL RED BLOOD CELL COUNT 4.88 4.20-5.80 Million/uL HEMOGLOBIN 15.3 13.2-17.1 g/dL HEMATOCRIT 46.5 38.5-50.0 % MCV 95.3 80.0-100.0 fL MCH 31.4 27.0-33.0 pg MCHC 32.9 32.0-36.0 g/dL RDW 12.9 11.0-15.0 % PLATELET COUNT 169 140-400 Thousand/uL MPV 11.6 7.5-12.5 fL ABSOLUTE NEUTROPHILS [phone] cells/uL ABSOLUTE LYMPHOCYTES 8464 012-3805 cells/uL ABSOLUTE MONOCYTES 642 200-950 cells/uL ABSOLUTE EOSINOPHILS 248 15-500 cells/uL ABSOLUTE BASOPHILS 41 0-200 cells/uL NEUTROPHILS 67.1 LYMPHOCYTES 19.4 MONOCYTES 9.3 EOSINOPHILS 3.6 BASOPHILS 0.6 COMPREHENSIVE METABOLIC PANE L (08158) Reviewed date:03/24/2024 08:49:57 AM Interpretation: Performing Lab:[facility] [id number] [employer], Social DJGzvzIH[address] Tong Harper Notes/Report: NON-FASTING; NON-FASTING; NON-FASTING; NON-FASTING [...] 18 10-35 U/L ALT 11 9-46 U/L LIPID PANEL, STANDARD (7600) Reviewed date:03/24/2024 08:49:57 AM Interpretation: Performing Lab:CB, [facility] Lztp5623 [facility] Centervd, [facility] CenterUrgqCK[address] Tong Harper Notes/Report: NON-FASTING; NON-FASTING; NON-FASTING; NON-FASTING FASTING:NO FASTING: NO CHOLESTEROL, TOTAL 120 <200 mg/dL HDL CHOLESTEROL 52 > OR = 40 mg/dL TRIGLYCERIDES 139 <150 mg/dL LDL-CHOLESTEROL 46 Reference range: <100 Desirable range <100 mg/dL for primary prevention; <70 mg/dL for patients with CHD or diabetic patients with > or = 2 CHD risk factors. LDL-C is now calculated using the Matt-Venice calculation, which is a validated novel method providing better accuracy than the Friedewald equation in the estimation of LDL-C. Matt SILVEIRA et al. ELVIS. 2013;310(19): 0166-8446 (http://education.[employer].com/faq/JVF429) CHOL/HDLC RATIO 2.3 <5.0 (calc) NON HDL [...] 200 A:C 30-300 HEMOGLOBIN A1c (496) Reviewed date:12/25/2024 11:32:18 AM Interpretation: Performing Lab:[facility] [address], [facility] CenterZaezOB[address] Tong Harper Notes/Report: HEMOGLOBIN A1c 6.4 <5.7 [...] Reviewed date:12/25/2024 11:32:18 AM Interpretation: Performing Lab:SHAKA [facility] [address], [facility] CenterTvtiMB[address] Tong Harper Notes/Report: WHITE BLOOD CELL COUNT [...] MPV 11.4 7.5-12.5 fL ABSOLUTE NEUTROPHILS 5305 5504-7555 cells/uL ABSOLUTE LYMPHOCYTES 7724 513-0932 cells/uL ABSOLUTE MONOCYTES 608 200-950 cells/uL ABSOLUTE EOSINOPHILS 258 15-500 cells/uL ABSOLUTE BASOPHILS 53 0-200 cells/uL NEUTROPHILS 69.8 LYMPHOCYTES 18.1 MONOCYTES 8.0 EOSINOPHILS 3.4 BASOPHILS 0.7 COMPREHENSIVE METABOLIC PANE L (73512) Reviewed date:12/25/2024 11:32:17 AM Interpretation: Performing Lab:[facility] Lrkd0593 [facility], [facility] InstituteBgipYS[address] Tong Harper Notes/Report: GLUCOSE 115 65-99 mg/dL [...] Reviewed date:12/25/2024 11:32:17 AM Interpretation: Performing Lab:[facility] Tyji8933 [facility], [facility] CenterTmggRV[address] Tong Harper Notes/Report: CHOLESTEROL, TOTAL 143 <200 [...] LDL-C. Matt SS et al. ELVIS. 2013;310(19): 9973-6088 (http://education.[employer].com/faq/WDW182) CHOL/HDLC RATIO 2.8 <5.0 (calc) NON HDL CHOLESTEROL 91 <130 mg/dL (calc) For patients with diabetes plus 1 major ASCVD risk factor, treating to a non-HDL-C goal of <100 mg/dL (LDL-C of <70 mg/dL) is considered a therapeutic option. LIPID PANEL, STANDARD (7600) Reviewed date:09/21/2024 04:36:52 PM Interpretation: Performing Lab:[facility]AKA, [facility] DJe1355 [employer] zoiduvd, Imagine CommunicationsIlkoAC[address] Tong Harper Notes/Report: NON-FASTING; NON-FASTING; NON-FASTING; NON-FASTING CHOLESTEROL, [...] LDL-C. Matt SS et al. ELVIS. 2013;310(19): 5706-2456 (http://education.[employer].com/faq/TQC331) CHOL/HDLC RATIO 2.5 <5.0 (calc) NON HDL CHOLESTEROL 72 <130 mg/dL (calc) For patients with diabetes plus 1 major ASCVD risk factor, treating to a non-HDL-C goal of <100 mg/dL (LDL-C of <70 mg/dL) is considered a therapeutic option. COMPREHENSIVE METABOLIC PANE L (03711) Reviewed date:09/21/2024 04:36:52 PM Interpretation: Performing Lab:[facility]A, [facility] [address], Wood WdpsUV[address] Tong Harper Notes/Report: NON-FASTING; NON-FASTING; NON-FASTING; NON-FASTING [...] 17 10-35 U/L ALT 11 9-46 U/L CBC (INCLUDES DIFF/PLT) (639 9) Reviewed date:09/21/2024 04:36:52 PM Interpretation: Performing Lab:[facility], [facility] Wzhf1783 [facility], [facility] InstituteQtouOJ[address] Tong Harper Notes/Report: NON-FASTING; NON-FASTING; NON-FASTING; NON-FASTING [...] MPV 11.7 7.5-12.5 fL ABSOLUTE NEUTROPHILS 5240 7122-7718 cells/uL ABSOLUTE LYMPHOCYTES 9213 036-3901 cells/uL ABSOLUTE MONOCYTES 672 200-950 cells/uL ABSOLUTE EOSINOPHILS 256 15-500 cells/uL ABSOLUTE BASOPHILS 56 0-200 cells/uL NEUTROPHILS 65.5 LYMPHOCYTES 22.2 MONOCYTES 8.4 EOSINOPHILS 3.2 BASOPHILS 0.7 HEMOGLOBIN A1c (496) Reviewed date:09/21/2024 04:36:53 PM Interpretation: Performing Lab:[facility], [facility] [address], [facility] CenterPdhuWT[address] Tong Harper Notes/Report: NON-FASTING; NON-FASTING; NON-FASTING; NON-FASTING [...] A1c for diagnosis of diabetes for children. Reason For Referral Reason CT Chest Referral Organization [facility] JERRY MERA Referring Provider First Name Omar Referring Provider Last Name Megan Referring Provider Speciality Internal edicine Referred Organization [facility] Referred Address [address] [place] [id number], Referred Provider Specialty Diagnostic R adiology General Notes Reba [place] 2023 09:19:15 AM >Patient no showed for his CT Referral Priority Routine Referral Appointment Date 01/25/2024 Reason Order faxed to katie valero scheduling for venous Doppler on Wednesday Diagnosis 1 Leg edema, left (R60 .0) Referral Organization [facility] PED EDE Referring Provider First Name Omar Referring Provider Last Name Megan Referring Provider Speciality Internal M edicine Referral Priority Urgent Referral Appointment Date 03/29/2024 Medications Medication SIG (Take, Route, Frequency, Duration) Notes Start Date End Date Status Atorvastatin Calcium 40 mg TAKE 1 TABLET DAILY Active Trelegy Ellipta 100-62.5-25 MCG/ACT 1 puff Inhalation Once a day; Duration: 90 days 12/20/2024 Active Methocarbamol 500 MG 2 tab(s) orally every 8 hours PRN Active hydroCHLOROthiazide 25 MG 1 tab(s) orall y once a day; Duration: 90 days Active Omeprazole 20 mg TAKE 1 CAPSULE DAILY Active metFORMIN HCl 500 MG 1 tab(s) orally daily; Duration: 90 days Active Metoprolol Succinate ER 25 MG TAKE 1 TABLET DAILY Active FiberCon 6 PER DAY *Please review and pick correct strength-formulat ion from [employer] A/S options. If intended option is not shown, discontinue and re-order from Quick Search* Active Aspirin 81 MG 1 TAB(S) ORALLY ONCE A DAY *Please review and pick correct strength-formulat ion from [employer] A/S options. 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) Active confirmed Problem Panlobular emphysema (0050695) Panlobular emphysema (J43.1) Active confirmed Problem Sebaceous cyst (261231279) Sebaceous cyst (L72.3) Active confirmed Problem Nicotine dependence (35956269) Personal history of nicotine dependence (Z87.891) Active confirmed Problem Type II diabetes mellitus without complication (072903023) Diabetes mellitus type 2, noninsulin dependent (E11.9) Active confirmed Problem Essential hypertension (70274023) Essential hypertension (I10) Active confirmed Problem Hyperlipidemia (42908573) Hyperlipemia, idiopathic familial (E78.5) Active confirmed Problem Tubular adenoma of colon (392395704) Tubular adenoma of colon (D12.6) Active confirmed Problem Lymphedema (42444773) Lymphedema (I89.0) Active confirmed Problem Skin lesion (80306182) Skin lesion (L98.9) Active confirmed Problem COPD - Chronic obstructive pulmonary disease (92526658) Chronic obstructive pulmonary disease, unspecified COPD type (J44.9) Active confirmed Problem Solitary nodule of lung (989831636) Lung nodule (R91.1) Active confirmed Problem Liver cyst (01131882) Liver cyst (K76.89) Active confirmed Problem Adult health examination (567790460) Healthcare maintenance (Z00.00) Active confirmed Problem Disorder of kidney and/or ureter (199171306) Right renal mass (N28.89) Active confirmed Problem Multiple pulmonary nodules (173826523) Multiple pulmonary nodules (R91.8) Active confirmed Problem Skin cancer (424349583) Skin cancer (C44.90) Active confirmed Problem Meralgia paresthetica (09593131) Meralgia paresthetica of right side (G57.11) Active confirmed Problem Radiology result abnormal (870755494) Abnormal chest CT (R93.89) Active confirmed Vital Signs Heart Rate 100 /min 12/20/2024 Temperature 97.9 degrees Fahrenheit 12/20/2024 Blood pressure diastolic 80 mm Hg 12/20/2024 Height 5 ft 8 in in 12/20/2024 Blood pressure systolic 130 mm Hg 12/20/2024 Weight 169.2 lbs 12/20/2024 BMI 25.72 kg/m2 12/20/2024 Encounters Encounter Location Date Provider Diagnosis [facility] [address] [place], [place] [address] 09/30/2024 Provider Migration [facility] [address] [place], [place] [address] 02/08/2024 Shayna McNees Thoracic myofascial strain, sequela S29.019S and Acute myofascial strain of lumbar region, sequela S39.012S [facility] [address] [place], [place] [address] 03/22/2024 Omar Guzman Type 2 diabetes mellitus with other circulatory complications E11.59 ; 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 I25.10 ; Lymphedema I89.0 ; Multiple pulmonary nodules R91.8 and Routine medical exam Z00.00 [facility] [address] [place] [address] 12/20/2024 Omar Guzman Chronic obstructive pulmonary disease, unspecified COPD type J44.9 ; Hyperlipemia, idiopathic familial E78.5 ; Essential hypertension I10 ; Diabetes mellitus type 2, noninsulin dependent E11.9 ; Multiple pulmonary nodules R91.8 ; Right renal mass N28.89 and Liver cyst K76.89 [facility] [address] [place] [address] 01/11/2024 Omar Guzman Lung nodule R91.[address] lung screening R91.8 [facility] [address] [place] [address] 01/27/2024 Omar Fredson [facility] [address] [facility] [address] [place] [address] 03/27/2024 Omar Fredson [facility] [address] [facility] [address] [place] [address] 09/20/2024 Omar Guzman Lymphedema I89.0 [facility] [address] [place] [address] 12/26/2024 Omar Guzman Chronic obstructive pulmonary disease, unspecified COPD type J44.9 [facility] [address] [address] 01/01/2025 Omar Guzman Chronic obstructive pulmonary disease, [...] close f/u. 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 (ICD-10 - [...] to be fluid overloaded, will refer to [facility] lymphedema 09/20/2024 Multiple pulmonary nodules (ICD-10 [...] Diff 020 M-Complete Blood Count Auto Diff 018 M-Complete Blood Count Auto Diff 021 M-Comprehensive Metabolic Panel 02/19/20 21 M-Comprehensive Metabolic Panel 04/12/20 18 M-Comprehensive Metabolic Panel 07/25/19 20 M-Comprehensive Metabolic Panel 03/12/20 22 M-Hemoglobin A1C 03/12/2022 M-Hemoglobin A1C 07/25/2019 M-Hemoglobin A1C 04/12/2018 M-Hemoglobin A1C 02/18/2021 M-Lipid Panel 02/18/2021 M-Lipid Panel 07/25/2019 M-Lipid Panel 04/12/2018 M-Lipid Panel 03/12/2022 CT CHEST WO CONTRAST 01/11/2024 Future Test Test Name Order Date H-CMP 01/17/2018 H-LIPID PANEL 01/17/2018 Next Appt Details Provider Name:Omar Guzman, 01/31/2025 12:15:00 PM, [address] [facility], [address], [place], [address], Insurance Providers Payer Name Payer Address Payer Phone Subscriber Number Group Number Insured Name Patient Relationship to Insured Coverage Start Date Coverage End Date [place] [address] [place] [address] [id number] León Bedolla Self - patient is the insured [facility] [address] [place] [address] [id number] León Bedolla Self - patient is the insured [employer] [address] [place] [address] [address] [place] [address] [phone] ACL León Bedolla Self - patient is [...] removal-bilateral eyes 2023 Hospitalization History Reason Date(Month/Year) [place]- Flu A , Bronchitis and Dehyd ration 06/26/2017 fever r/t surgies
--- NOTE | 2025-01-04 09:26 | CT_ITS ---
FINAL REPORT TECHNIQUE: Axial images were obtained through the chest without contrast. Coronal and sagittal images were obtained and reviewed. This study was performed with techniques to keep radiation doses as low as reasonably achievable, (ALARA). Individualized dose reduction techniques using automated exposure control or adjustment of mA and/or kV according to the patient's size were employed. CLINICAL HISTORY: LIVER MASS/PULMONARY NODULES COMPARISON: CT low-dose 10/14/[address] abdomen and pelvis 01/02/2025 FINDINGS: Moderate calcifications are noted in the aortic arch. There are moderate coronary artery calcifications. The heart size is normal. There is no pericardial or pleural effusion. The previously noted ground-glass opacity in the periphery of the left upper lobe is not as well seen on today's images. There is mild chronic scarring in both lungs. Moderate changes of centrilobular emphysema are noted. There is a pleural-based density in the periphery of the right upper lobe measuring 6 mm on image 24 of series 2 which is more conspicuous than on the previous exam. There is a nodular focus measuring 8 mm in the right lower lobe on image 45 of series 2 which is new from the previous exam. Limited images of the upper abdomen demonstrate a calcified focus in the medial right lobe of the liver which is stable compared to CT from 2 days prior. Calcified gallstones are seen in the dependent portion of the gallbladder. IMPRESSION: New right lower lobe 8 mm nodule and a more conspicuous right upper lobe pleural-based nodule. These are favored to be inflammatory. Follow-up in 3 months recommended. Moderately advanced changes of centrilobular emphysema. Stable calcified focus right lobe of the liver. Reviewed, Interpreted and Dictated by Frank Young MD Transcribed by Dede Aviles Authenticated and . [facility]
== END 2025-01-04 23:59 | disposition home or self-care (01) ==
LOC: RAD 09:23
PROVIDERS: PCP Internal Medicine Adolescent Medicine; Visit Provider Internal Medicine Adolescent Medicine
DX: J43.2 Centrilobular emphysema (principal); K76.89 Other specified diseases of liver; R91.8 Other nonspecific abnormal finding of lung field; K80.20 Calculus of gallbladder without cholecystitis without obstruction; R93.2 Abnormal findings on diagnostic imaging of liver and biliary tract
CPT/HCPCS: 71250; 76705

== ENCOUNTER 2025-04-25 12:42 | Outpatient (CLI) | payer MEDICARE, OTHER, SELFPAY ==
--- OUTSIDE RECORDS SUMMARY | 2024-09-30 17:30 | XMS_ITS ---
Author Organization [facility] Address [address] [place] [address] Care Team Providers Care Stadium Attendant Name Role Phone Omar Guzman Primary Care Provider [phone] Migration, Provider Unavailable Unavailable [facility] Conversion Encounter Medications Medication SIG (Take, Route, [...] review and pick correct strength-formulat ion from [employer] options. If intended option is not shown, discontinue and re-order from Quick Search* Active Omeprazole 20 MG 1 cap(s) orally once a day Active Anoro Ellipta 62.5 MCG-25 MCG/INH USE 1 INHALATION DAILY *Please review and pick correct strength-formulat ion from [employer] options. If intended option is not shown, discontinue and re-order from Quick Search* Active traZODone HCl 50 MG as directed orally at bedtime; Duration: 90 days 09/20/2023 Active Losartan Potassium 100 MG 1 tab(s) orall y once a day; Duration: 90 days Active FiberCon 6 PER DAY *Please review and pick correct strength-formulat ion from [employer] options. If intended option is not shown, discontinue and re-order from Quick Search* Active Encounters Encounter Location Date Provider Diagnosis [facility] [address] [facility] [address] [place] [address] 09/30/2024 Provider Migration Plan Of Treatment Medication Medication Name Sig Start Date Stop Date Notes hydroCHLOROthiazide 25 MG 1 tab(s) orall y once a day; Duration: 90 days Next Appt Details Provider Name:Omar Guzman, 05/02/2025 12:15:00 PM, [address], [address], [place], [address], Progress Notes * León BEDOLLA RDOB: [birth year] (80 yo M)Acc No.[id number]:09/30/2024 Patient: Gómez León BRADFORD R Provider: Siobhan hallman Migration :1945 A ge:79 Y S ex:Male Date:09/30/2024 Address:[place], [id number] Pcp:Omar Guzman Subjective: * Chief Complaints: * [address] [address] [facility] En[facility]. * Medical History: * Medications: T aking Methocarbamol 500 MG Tablet 2 tab(s) orally every 8 hours PRN , Taking FiberCon CAP 6 PER DAY , Notes to Pharmacist: *Please review and pick correct strength-formulation from [employer] options. If intended option is not shown, discontinue and re-order from Quick Search*, Taking Aspirin 81 MG TABLET 1 TAB(S) ORALLY ONCE A DAY , Notes to Pharmacist: *Please review and pick correct strength-formulation from [employer] options. If intended option is not shown, [...] Electronic signature of Marilee loredo Migration on 04/25/2025 at 12:45 PM EDT Sign off status: Pending * Provider: Siobhan hallman Migration Date: 0 09/30/2024 Generated for Jeremías crowder/Argelia/Artemio on: 1 12:45 PM EDT
--- OUTSIDE RECORDS SUMMARY | 2025-03-06 08:32 | XMS_ITS ---
Author Organization [facility]DE Address [address] [facility] [address] [address] [facility] [address] [place] [address] Care Team Providers Care Printing Agent Name Role Phone Omar Guzman Primary Care Provider Encounters Encounter Location Date Provider Diagnosis [facility] [address] [facility] [address] [place] [address] 03/06/2025 Omar Guzman Abnormal chest CT R93.89 Assessments Encounter Date Diagnosis (ICD Code) Assessment Notes Treatment Notes Treatment Clinical Notes Section Notes 03/06/[address] (ICD-10 - R93.89) Plan Of Treatment Pending Test Test Name Order Date CT Scan : Chest, Without Contrast 2024 Next Appt Details Provider Name:Omar Guzman, 05/02/2025 12:15:00 PM, [address] [facility] [address] [facility], [address], [place], [address], Progress Notes * León BEDOLLA RDOB: [birth year] (80 yo M)Acc No.[id number]:03/06/2025 Patient: Gómez BRADFORD León Gonzalez :1945 A ge:80 Y S ex:Male Address:[place] [address] Subjective: * Chief Complaints: * * Medical History: * Surgical History: * Hospitalization/Major Diagno stic Procedure: * Medications: Objective: * Vitals: * Physical Examination: Assessment: * Assessment: 1. A bnormal chest CT - R93.89 Plan: * Treatment: * * Procedure Codes: * true * Date: Generated for Jeremías crowder/Argelia/Artemio on: 12:45 PM EDT
--- NOTE | 2025-04-25 12:45 | CT_ITS ---
FINAL REPORT TECHNIQUE: Axial images were obtained through the chest without contrast. Coronal and sagittal images were obtained and reviewed. This study was performed with techniques to keep radiation doses as low as reasonably achievable, (ALARA). Individualized dose reduction techniques using automated exposure control or adjustment of mA and/or kV according to the patient's size were employed. CLINICAL HISTORY: ABNORMAL CHEST CT COMPARISON: 01/04/2025 FINDINGS: There is a tortuous thoracic aorta. Mild vascular calcifications are noted. The heart size is normal. There is no mediastinal mass or adenopathy. There is no pericardial or pleural effusion. There are changes of centrilobular emphysema. Pleural-based focus in the periphery of the right upper lobe measuring 7 mm appears essentially stable. Nodule in the right lower lobe now measures 12 x 7 mm on image 42 of series 2 and previously measured 8 mm. Limited images of the upper abdomen demonstrate a calcified focus in the right lobe of the liver is stable. There are tiny calcified gallstones. IMPRESSION: Interval increase in size of right lower lobe pulmonary nodule now measuring 12 mm. PET-CT may be of value. Reviewed, Interpreted and Dictated by Frank Young MD Transcribed by Dede Aviles Authenticated and [facility]
--- OUTSIDE RECORDS SUMMARY | 2025-04-25 12:45 | XMS_ITS | Encounter Summary ---
Author Organization Healthcare Address [address] [id number] Care Team Providers Care Senior Planner Name Role Phone Omar Guzman MD Primary Care Provider [phone] Encounter Details Date Type Department Care Team (Late st Contact Info) Description 12/18/2023 Ophth Exam [facility] [address] [place] [address] Frandy Tom MD [address] [id number] Social History Tobacco Use Types Packs/Day Years Used Date Smoking Tobacco: Every Day Cigarettes 1.5 50.8 Started: 1973 Smokeless Tobacco: Never Alcohol Use [...] place to sleep or slept in a half-way (including now)? No 12/17/2023 CAGE ASSESSMENT Answer [...] drink first t mason in the morning ([employer]) to steady your nerves or to get [...] No Risk Indicated 12/20/2023 7:00 PM EDT Jaona Estrada RN * Question Answer Date of Assessment Author 1. Wish to be (Past 1 Month) No 12/20/2023 7:00 PM EDT Mil Bruce RN 2. Non-Specific Active Suicidal Thoughts (Past 1 Month) No 12/20/2023 7:00 PM EDT Mil Bruce RN 6. Suicidal Behavior (Lifetime) No 12/20/2023 7:00 PM EDT Mil Bruce RN documented as of this encounter Plan of Treatment Not on file documented as of this encounter Visit Diagnoses Not on filedocumented in this encounter Additional Health Concerns Infection Onset Date Last Indicated Resolved Time Meningitis Rule-Out 12/18/2023 12/18/2023 12/18/19 8:04 PM EDT Assessment Noted Time A Body Mass Index follow-up plan has been documented for the patient 12/21/2023 5:32 PM EDT documented as of this encounter Care Teams Senior Planner Relationship Specialty Start Date End Date Omar Guzman MD [address] [place] [address] PCP - General Internal Medicine 12/17/23 documented as of this encounter
--- OUTSIDE RECORDS SUMMARY | 2025-04-25 12:45 | XMS_ITS | Clinical Summary ---
Author Organization Healthcare Address [address] [place] [address] Care Team Providers Care Certified Midwife Name Role Phone Omar Guzman MD Primary Care Provider [phone] Allergies No known active allergies Medications atorvastatin [...] CT 02/14/2024 Atherosclerotic heart diseas e of [place] coronary artery without angina pectoris 02/14/2024 Bladder outlet obstruction 02/14/2024 Diabetes mellitus type 2, noninsulin dependent 0 02/14/2024 Encounter for screening labo ratory testing for COVID-19 virus 02/14/2024 Meralgia paresthetica of right side 02/14/2024 Panlobular emphysema 02/14/2024 Sebaceous cyst 02/14/2024 Skin cancer 02/14/2024 Skin lesion 02/14/2024 Tubular adenoma of colon 02/14/2024 Viral syndrome 02/14/2024 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 [...] associated with increased intracrani al pressure 12/16/2023 Resolved Problems Problem Noted Date Diagnosed Date Resolved Date Cellulitis 02/14/2024 03/18/2025 Sinusitis 02/14/2024 03/18/2025 UTI (urinary tract infection) 02/14/2024 03/18/2025 Insomnia, unspecified 06/28/20002024 Immunizations Immunization Administration Dates Next Due Influenza, Unspecified 03/19/2015 Influenza, high-dose, quadrivalent 03/18,03/17/2021,03/07/2020, 019 Influenza, injectable, quadrivalent 05/02/2018,1 Pneumococcal Conjugate PCV 13 04/26/2017, 015 Pneumococcal Polysaccharide PPV23 05/02/2018 Td (adult), unspecified 02/05/2012 Zoster, Recombinant 08/07/2019,05/22/2019 Social History Tobacco Use Types Packs/Day Years Used Date Smoking Tobacco: Every Day Cigarettes 1.5 50.8 Started: 1974 Smokeless Tobacco: Never Tobacco Cessation:Ready [...] place to sleep or slept in a alf (including now)? No 12/17/2023 CAGE ASSESSMENT Answer [...] drink first t mason in the morning ([employer]) to steady your nerves or to get rid of a hangover? 0 12/16/2023 CAGE Questionnaire Score 0 024 Utilities Answer Date Recorded In the past 12 months has e [employer], gas, oil, or water company threatened to [...] 12/18/2023 11:03 PM EDT Plan of Treatment Health Maintenance Due Date Last Done Comments [facility]-Depression Screening 1945 [facility]-Diabetes: Hemoglobin A1C 1945 [facility]-Medicare Annual Wellness (AWV) 1945 [facility]-Infant/Child/Adol SDOH Screenings 1945 Diabetes: Dental Exam 01/30/1956 [facility]- SDOH Screenings 01/30/1964 [facility]-Adult SDOH Screenings 01/30/1964 Lung Cancer Screening Shared Decision Making 01/30/1996 [facility]-DTaP,Tdap,and Td Vaccines (1 - Tdap) 02/06/2012 02/05/2012 [facility]-RSV Vaccine: 60+ Years or (1 - 1-dose 75+ series) 2021 [facility]-Lung Cancer Screening 12/18/2024 12/19/2023 NUL-SAGPT-48 Vaccine (4 - 2024- season) 2025 04/02/2021, 08/05/2020, 07/03/2020 [facility]-Influenza Vaccine (#1) 02/26/202503/18, 03/17/2021, 03/07/2020, Additional history exists [facility]-Pneumococcal Vaccine: 50+ Years Completed 05/02/2018, 04/26/2017, 03/19/2015 [facility]-Zoster Vaccines Completed 08/07/2019, 9 [facility]-Hepatitis C Screening Completed 12/16/2023 [facility]-Obesity Intervention Completed 024, 12/31/2023, 12/28/2023, Additional [...] 7:54 AM by Shahrzad Heredia MD via [employer] secure chat. Drafted by Shahrzad Heredia MD [...] were discussed with Maynor Hull M.D. on :54 AM by Shahrzad Heredia MD via [employer] secure chat. Drafted by Shahrzad Heredia MD on 12/19/2023 7:39 AM Final report signed by Shahrzad Heredia MD on 12/19/2023 7:55 AM us Lenore Ndiaye MD IMG CT PROCEDURES Final Resu lt * Hepatitis C Antibody - ED (12/16/2023 5:18 PM EDT) Hepatitis C Antibody Negative Negative 12/16/2023 6:11 PM EDT [facility] Blood Venous blood specimen / Unknown Venipuncture / Unknown 12/16/2023 5:18 PM EDT 12/16/2023 5:29 PM EDT us Collin Carroll MD LAB BLOOD ORDERABLES Final Resu lt Performing Organization Address City/State/[facility] Co de Phone Number HEALTHCARE LAB [address] [place] [phone] from Last 3 Months or Most Recently Relevant to Health Maintenance [place] [address] [facility] Advance Directives * Full Code (Latest Code Status on File) Date Activated Date Inactivated Comments 12/16/2023 10:49 PM 12/21/2023 8:13 PM Question Answer Comments Patient has decision-making capacity? Yes Care Teams Certified Midwife Relationship Specialty Start Date End Date Omar Guzman MD [address] [place] [id number] PCP - General Internal Medicine 12/17/23
--- OUTSIDE RECORDS SUMMARY | 2025-04-25 12:45 | XMS_ITS | Data Portability ---
Author Organization [facility] [place] [facility] Address [address] [place] [address] Care Team Providers Care Adobe Flex Developer Name Role Phone STU TORIBIO Primary Care Provider [phone] Assessment No assessment recorded. Plan of Treatment Reminders Order Date Submit Date Provider Last Modified By Organization Details Last Modified Time Details Appointments None record ed. Lab None record ed. Referral None record ed. Procedures None record ed. Surgeries None record ed. Imaging None record ed. Medication Orders None record ed. Patient TargetsNo targets recorded. Patient Instructions Encounter Date Encounter Id Patient Instructions Last Modified By Organization Details Last Modified Time 03/25/2018 [id number] healthy together [email or web address] Not availabl e 03/25/2018 14:25:04 learning about high blood pressure [email or web address] Not available 03/25/2018 14:25:04 urinary retention: care instructions [email or web address] Not available 03/25/2018 14:25:04 03/28/2018 [id number] urinary retention: care instructions [email or web address] Not available 03/28/2018 14:41:59 Reason for Referral None Reported. Results Created Date Observation Date Name Description Value Unit Range Abnormal Flag Note LastModifiedBy Organization Detail LastModifiedTime Result Notes None recorded. Problems No Known Problems Procedures Surgical History Date Name Laterality Status Provider Name and Address Organization Details Recorded Time 04/01/20 18 TRANSURETHRAL RESECTION OF PROSTATE (SURG) completed Suha Hirsch [facility] 04/04/2018 12:01:15 03/25/20 18 Post Void Residual; Ultrasound completed [facility] 03/25/2018 11:29:23 03/25/20 18 Catheter Insertion; Bauman completed [facility] 03/25/2018 13:04:31 Other completed Madelaine Luna [facility] 03/25/2018 11:36:46 Imaging Results None recorded. Procedure Notes None recorded. Medical Equipment None Reported. Allergies No known drug allergies Medications Name Sig Start Date Stop Date Status Note LastModified by Organization Details LastModified Time losartan 50 mg tablet Take 1 tablet every day by oral route. active Not Available Not Available No t Available atorvastatin 40 mg tablet Take 1 tablet every day by oral route. active Not Available Not Available No t Available metformin 500 mg tablet Take 1 tablet twice a day by oral route. active Not Available Not Available No t Available doxycycline monohydrate 100 mg capsule Take 1 capsule twice a day by oral route for 14 days. 2017 active Not Available Not Available Not Avai lable omeprazole 20 mg capsule,franco yed release Take 1 capsule every day by oral route. active Not Available Not Available No t Available aspirin active Not Available Not Avail able Not Available nicotine active Not Available Not Avai lable Not Available diphenhydram ine HCl 25 mg/50 mL in 0.9 % sodium chloride IV piggyback Infuse 50 mL every 4 hours by intravenous route. active Not Available Not Available No t Available umeclidinium active Not Available Not Available Not Available metoprolol succinate ER 25 mg capsule sprinkle, ext. release 24 hr Take 1 capsule every day by oral route. active Not Available Not Available No t Available Vitals Date Recorded Body weight Body mass index (BMI) Body height Heart rate Systolic And Diastolic Provider Name and Address Organization Details Last Updated DateTime 03/25/2018 53538.44 g 31.2 kg/m2 172.72 cm 86 /min 118/74 mm[Hg] Madelaine Carrasco [facility] 03/25/2018 11:32:47 Date Recorded Body height Body mass index (BMI) Body weight Heart rate Systolic And Diastolic Provider Name and Address Organization Details Last Updated DateTime 03/28/2018 172.72 cm 31.2 kg/m2 01571.44 g 85 /min 142/90 mm[Hg] Hannah Putnam [facility] 03/28/2018 13:40:34 Social History Question Answer Notes LastModified by Organizat ion Details LastModified Time Tobacco Smoking Status Former Smoker Madelaine Carrasco [facility] 03/25/2018 11:35:53 Marital Status Informatio n not available 03/25/2018 What Was The Date Of Your Most Recent Tobacco Screening? 03/28/2018 Information n ot available 08/15/2019 Sex: Unknown Functional Status Question Answer Note LastModified by Organizat ion Details LastModified Time What is your level of alcohol consumption? Occasional Information not available 03/25/2018 What is your occupation? retired Information not available 03/25/2018 Mental Status None recorded. Family History Relationship Description Onset Age of this Age Resolved Age Notes LastModified by Organization Details LastModified Time Father Family history of malignant neoplasm [email or web address] Not available 2017 11:35:29 Brother Family history of malignant neoplasm [email or web address] Not available 2017 11:35:33 Medical History No medical history recorded. Past Encounters Encounter ID Performer Location Encounter Start Date Encounter Closed Date Diagnosis/Indication Diagnosis SNOMED-CT Code Diagnosis ICD10 Code Diagnosis IMO Codes Diagnosis Note [id number] ED PADILLA MD [facility] [address] [place] [id number] 03/25/2018 09:57:43 03/25/2018 11:59:25 Retention of urine 194146217 R33.9 wwe will see how he does after catheter decompress ion. [id number] ED PADILLA MD [facility] [address] [place] [id number] 03/28/2018 12:38:52 03/28/2018 13:53:00 Retention of urine [id number] R33.9 wwe will see how he does after catheter decompress ion.hhe will follow-up with me in [place] in 2 weeks. If he has difficulty voiding and will notify Health Concerns Section Related Observation LastModified by Organization Detai ls LastModified Time None Recorded Concern Status LastModified by Organization Details LastModified Time None Recorded Advance Directives Directive None Recorded Payers Insurance Date Sequence Insurance Name Policy Number Policy Oliva Covered Member ID Oliva Member ID Guarantor Name 03/30/2018 1 [place] León Bedolla [id number] León Bedolla 05/04/2018 2 FOR LIFE ( - MEDICARE SUPPLEMENT) León Bedolla [id number] León Bedolla Notes Date Note Type Note Provider Name and Address Organization Details Recorded Time 03/25/2018 text/html patient is typically seen by me in [place]. He has history of TURP years ago. He has been voiding well. He recently returned from a trip in [place] where he stayed for 2 weeks. Toward the end of that trip and developed significant hemorrhoid pain and swelling. He was seen by physician there who gave him Anusol type cream. On the flight back he developed difficulty voiding. He was seen at [facility] emergency room last evening where he had over a liter of urine in his bladder and out catheterization. He was last seen by me about 3 months ago without voiding complaints. His bladder was scanned today and contained a liter of fluid. An 18 [place] coud -tip Bauman catheter was placed. We had a long conversation. I recommended that we leave his catheter in place for a few days. His rectal pain is much improved. He will see me in 72 hours for a voiding trial. ED PADILLA MD [address] [place] [address] [place], [phone], [facility] 03/25/2018 14:25:37 03/28/2018 text/html patient is here in follow-up of urinary retention after severe hemorrhoid flareup last week. I placed a Bauman catheter 3 days ago. He's had considerable catheter irritation with what sounds to be bladder spasms. He states that his hemorrhoid pain is markedly improved. I suggest we remove his catheter for a voiding trial today. I have seen him chronically for BPH. He is status post TURP several years ago. ED PADILLA MD [address] [place] [address], [phone], [facility] 03/28/2018 14:42:32
== END 2025-04-25 23:59 | disposition home or self-care (01) ==
LOC: RAD 12:43
PROVIDERS: PCP Internal Medicine Adolescent Medicine; Visit Provider Internal Medicine Adolescent Medicine
DX: R91.1 Solitary pulmonary nodule (principal); R93.89 Abnormal findings on diagnostic imaging of other specified body structures
CPT/HCPCS: 71250